=== PATIENT | male | born 1955 | race African-American/Black ===

== ENCOUNTER 2019-07-16 19:42 | Emergency (ER) | payer OTHER, SELFPAY ==
--- NOTE | ~2019-07-16 | CT_ITS ---
EXAMINATION: CT abdomen pelvis wo con EXAM DATE: 07/16/2019 21:05 INDICATION: Hematuria. TECHNIQUE: Spiral CT of the abdomen and pelvis was performed without contrast. Axial, coronal and sag ittal images were reviewed. The dose-length product (DLP) for this examination was 864.41 mGy-cm. T he exposure was tailored according to patient size (auto mA exposure control), and iterative reconstr uction (ASIR) was used as additional dose reduction technique. There is no prior study for compariso n. FINDINGS: There is a punctate 2 mm calcification in the right ureterovesicular junction. No hydroneph rosis at present. There are several stones layering in the dependent aspect of the bladder. Low-densi ty renal lesions consistent with cysts. There are several small more dense lesions which are homogene ous and statistically most likely hemorrhagic cyst but incompletely evaluated without contrast. Ther e is mild prostatomegaly. The bladder is unremarkable. The liver, spleen, adrenal glands and pancre as are unremarkable. Gallbladder is unremarkable. No biliary obstruction. There is no retroperiton eal or pelvic lymphadenopathy. There is mild scattered arteriosclerotic disease. Small umbilical he rnia containing nonobstructed small bowel loop. The appendix is not positively visualized. There is no pericecal inflammatory change to suggest appe ndicitis. The stomach and small bowel are unremarkable. There is moderate amount of colonic stool in the ascending and transverse colon. No free intraperitoneal gas. The heart is normal in size. There are no pericardial or pleural effusions. The lung bases are unremarkable. There are no osteo blastic or osteolytic lesions identified. IMPRESSION: 1. Right UVJ 2 mm stone, without hydroureteronephrosis. Nonobstructing at present. 2. Bladder stones. 3. Prostatomegaly. 4. Small umbilical hernia containing nonobstructed small bowel. 5. Renal lesions consistent with cysts and more dense lesions statistically most likely cyst but not further characterized on this noncontrast study. Reviewed, dictated and finalized at location A. IMPRESSION: 1. Right UVJ 2 mm stone, without hydroureteronephrosis. Nonobstructing at pres ent. 2. Bladder stones. 3. Prostatomegaly. 4. Small umbilical hernia containing nonobstructed small bowel. 5. Renal lesions consistent with cysts and more dense lesions statistically mo st likely cyst but not further characterized on this noncontrast study.
[2019-07-16 19:44] VITALS: BP 155/90; PULSE 92; RESP 16; TEMP 37; O2SAT 100
--- NOTE | 2019-07-16 20:33 | ED.MALEGU ---
HPI - Male Genitourinary General Chief complaint: Urogenital-Male Stated complaint: HEMATURIA Time Seen by Provider: 07/16/19 20:23 Source: patient Mode of arrival: ambulatory Limitations: no limitations History of Present Illness HPI Narrative: A 64 y/o male presents to the ED with c/o hematuria. Pt states that today he went for a mile walk and when he came home he noticed his urine had blood in it and was cloudy and dark. He denies dysuria and back pain. Pt is not currently on blood thinners. He adds that he has been losing weight intentionally Complaint: other (Hematuria) Onset (ago): hour(s) (Today) Duration: constant Associated symptoms: Reports denies other symptoms Related Data Allergies Allergy/AdvReac Type Severity Reaction Status Date / Time No Known Allergies Allergy Unknown Unverified 02/10/19 11:07 No Known Allergies Allergy Uncoded 02/10/19 11:07 Review of Systems Review of Systems: Narrative: CONSTITUTIONAL: Denies fever, chills, or sweats. CARDIOVASCULAR: Denies chest pain, palpitations, or edema. RESPIRATORY: Denies cough or dyspnea. GASTROINTESTINAL: Denies abdominal pain, nausea, vomiting, or diarrhea. GENITOURINARY: Denies dysuria. Reports hematuria. SKIN: Denies rash or itching. MUSCULOSKELETAL: Denies back pain, joint pain, or myalgia. NEUROLOGIC: Denies headache, numbness, or weakness. All systems reviewed & are unremarkable except as noted in HPI and below PMFSH Past Medical History Medical History (Updated 07/16/19 @ 21:54 by Verna Vega MD) Asthma BPH (benign prostatic hyperplasia) Glaucoma HTN (hypertension) Nose fracture Pneumonia Surgical History Surgical History (Updated 07/16/19 @ 20:36 by Geeta Grady) No pertinent past surgical history Social History Social History (Updated 07/16/19 @ 20:36 by Geeta Grady) Smoking status: Never smoker Gender identity (if verbalized by the patient): Male Exam Narrative: Exam Narrative: GENERAL: Well-appearing, well-nourished, and in no acute distress. HEAD: Normocephalic, atraumatic. EYES: PERRLA and EOMI. ENT: Nares clear, no rhinorrhea or epistaxis. Mucous membranes moist. NECK: Supple. CHEST: Clear to auscultation. No respiratory distress. HEART: Regular rate and rhythm. No murmur heard. Normal peripheral pulses. ABDOMEN: Soft, nontender, nondistended, normal active bowel sounds. EXTREMITIES: Normal range of motion. No edema. SKIN: Warm, dry, no rash. NEURO: No focal deficits. Alert and oriented X3. Course Course Emergency Course: Patient presented for evaluation of hematuria. At the time of initial assessment, patient denies any other symptoms, he is having some urinary frequency. Patient without flank pain. Urinalysis shows white blood cells, no evidence of UTI, no leukocyte esterase or nitrites present. White blood cells may be inflammatory in nature as the patient does have a right sided 2 mm UVJ nonobstructing stone currently. This is likely causing the patient's hematuria. Urology also recommended no antibiotics for this patient. He will be given urology follow-up for his stone, given a strainer and advised on how to strain his urine. Patient then discharged home in stable condition. Vital Signs Vital signs: Vital Signs Temperature 37.0 C 07/16/19 19:44 Pulse Rate 92 07/16/19 19:44 Respiratory Rate 16 07/16/19 19:44 Blood Pressure 155/90 H 07/16/19 19:44 Pulse Oximetry 100 07/16/19 19:44 Temperature 37.0 C 07/16/19 19:44 Pulse Rate 92 07/16/19 19:44 Respiratory Rate 16 07/16/19 19:44 Blood Pressure 155/90 H 07/16/19 19:44 Pulse Oximetry 100 07/16/19 19:44 MDM - Male Genitourinary Lab Data Result diagrams: 07/16/19 20:58 07/16/19 20:58 Labs: Lab Results 07/16/19 07/16/19 07/16/19 Range/Units 20:50 20:58 20:58 WBC 4.7 (4.5-10.0) K/mm3 RBC 4.79 (4.6-6.20) M/mm3 Hgb 14.5 (14.0-18.0) g/dL Hct 43.8 (42.0-52.0) %
[2019-07-16 21:04] LABS: Basophils Percent Auto 0.6 % (0.2-1.2); Eosinophils Absolute Auto 0.1 K/mm3 (0-0.3); Eosinophils Percent Auto 2.1 % (0-4.4); Hematocrit 43.8 % (42.0-52.0); Hemoglobin 14.5 g/dL (14.0-18.0); Immature Granulocyte Absolute 0.01 K/mm3 (0.00-0.031); Immature Granulocyte Percent A 0.2 % (0-0.5); Mean Corpuscular HGB Conc 33.1 g/dl (32-36); Mean Corpuscular Hemoglobin 30.3 pg (26-34); Mean Corpuscular Volume 91.4 fl (80-100); Mean Platelet Volume 9.6 fl (7.4-10.4); Monocytes Absolute Auto 0.4 K/mm3 (0.1-0.6); Monocytes Percent Auto 8.9 % (2.6-8.5); Neutrophils Absolute Auto 3.3 K/mm3 (1.3-6.7); Neutrophils Percent Auto 69.2 % (45.5-73.1); Platelet Count Result 244 k/mm3 (150-375); Red Blood Count 4.79 M/mm3 (4.6-6.20); Red Cell Distribution Width 13.7 % (11.5-14.5); White Blood Count 4.7 K/mm3 (4.5-10.0)
[2019-07-16 21:13] LABS: Add Urine Microscopic? YES; Appearance Urine Cloudy (Clear); Bilirubin Urine Negative (Negative); Blood Urine 3+ (Negative); Color Urine Red (Yellow); Glucose Urine UA Negative (Negative); Ketones Urine Trace mg/dL (Negative); Leukocyte Esterase Ur Negative LEU/UL (Negative); Mucus Urine Rare /lpf; Nitrate Urine Negative (Negative); Protein Urine 2+ mg/dL (Negative); RBC Urine >75 /hpf (0-2); Specific Grav Ur 1.021 (1.001-1.035); Urobilinogen Urine Negative mg/dL (<2.0); WBC Urine >75 /hpf
[2019-07-16 21:15] LABS: Blood Urea Nitrogen 11 mg/dL (9-20); Calcium 9.5 mg/dL (8.4-10.2); Carbon Dioxide 28 mmol/L (22-30); Chloride 103 mmol/L (98-107); Creatine Kinase 589 U/L (55-170); Estimated CRCL calculation 73 ml/min; Estimated Glomerular Filt Rate > 60; Glucose 110 mg/dL (75-110); Potassium 3.6 mmol/L (3.4-5.0); Sodium 138 mmol/L (137-145)
[2019-07-16 22:09] VITALS: BP 121/77; PULSE 78; RESP 18; O2SAT 98
== END 2019-07-16 22:11 | disposition home or self-care (01) ==
PROVIDERS: Emergency Medicine; Emergency Provider Emergency Medicine
DX: N20.0 Calculus of kidney (principal); J45.909 Unspecified asthma, uncomplicated; N40.0 Benign prostatic hyperplasia without lower urinary tract symptoms; H40.9 Unspecified glaucoma; I10 Essential (primary) hypertension; N21.0 Calculus in bladder; K42.9 Umbilical hernia without obstruction or gangrene; N28.9 Disorder of kidney and ureter, unspecified
CPT/HCPCS: 36415; 74176; 80048; 81001; 82550; 85025; 87086; 87088; 99284

== ENCOUNTER 2020-05-17 19:13 | Observation (INO) | payer OTHER, SELFPAY ==
--- NOTE | ~2020-05-17 | US_ITS ---
EXAMINATION:US venous doppler LE BI INDICATION:Leg swelling and pain TECHNIQUE: Multiple grayscale, color flow and Doppler images of the right and left lower extremity de ep venous systems were obtained and reviewed. COMPARISON:No prior studies for comparison. FINDINGS: The common femoral, superficial femoral and popliteal veins demonstrate normal respiratory variation, augmentation and compressibility. Color flow is also seen within the posterior tibial, pe roneal, greater saphenous and profunda veins. IMPRESSION: 1: No lower extremity deep venous thrombosis. Reviewed, dictated and finalized at location A. 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
--- NOTE | ~2020-05-17 | CT_ITS ---
EXAMINATION: CTA chest PE protocol EXAM DATE: 05/17/2020 20:46 INDICATION: Chest pain radiating to left arm. TECHNIQUE: Spiral CTA of the chest (pulmonary arteries) was performed with 100 cc Omnipaque 350 intr avenous contrast injection. Images were acquired during the pulmonary arterial phase. Coronal maxi mum intensity projection 3D-reconstructions were created by the technologist on dedicated workstation . Axial, coronal and sagittal reformatted images were reviewed. The dose-length product (DLP) for t his examination was 816.44 mGy-cm. The exposure was tailored according to patient size (auto mA exp osure control), and iterative reconstruction (ASIR) was used as additional dose reduction technique. There is no prior study for comparison. FINDINGS: There are several segmental pulmonary emboli identified in the left upper lobe and the melquiades gula. No larger central pulmonary emboli. No thoracic aortic dissection. Scattered subsegmental ate lectasis. The lungs are otherwise clear. There are no pleural or pericardial effusions. Tracheobr onchial tree is patent. There is no mediastinal, hilar or axillary lymphadenopathy. There is no p neumothorax. Heart normal in size. There is mild coronary arterial calcification, arterial sclero sis. There is small sliding gastroesophageal hiatal hernia. Bilateral renal lesions, most are fluid density. There is an exophytic 1.3 cm right renal lesion, cou ld be proteinaceous cyst or solid based on density. There is thoracic spondylosis without osteoblast ic or osteolytic lesions identified. IMPRESSION: 1. Small exophytic right renal lesion, indeterminate; recommend follow-up ultrasound or MRI with con trast. 2. Lingular, left upper lobe segmental pulmonary emboli, low clot burden. I discussed small pulmonary emboli with Rob Craig DO at 05/17/2020 20:52 [employer] . Reviewed, dictated and finalized at location A. [employer] IMPRESSION: 1. Small exophytic right renal lesion, indeterminate; recommend follow-up ultr asound or MRI with contrast. 2. Lingular, left upper lobe segmental pulmonary emboli, low clot burden. I discussed small pulmonary emboli with Rob Craig DO at 05/17/2020 20:52 [employer] .
--- NOTE | ~2020-05-17 | XR_ITS ---
EXAMINATION: XR chest 2V EXAM DATE: 05/17/2020 19:40 INDICATION: Left lateral chest pain, history hypertension and asthma. TECHNIQUE: Frontal and lateral projections of the chest obtained and reviewed. There is no prior august[place] dy for comparison. FINDINGS: Linear bibasilar opacities most consistent with subsegmental atelectasis. The lungs are oth erwise clear. There are no pleural effusions. The cardiomediastinal silhouette is within normal carrasco its. There is no pneumothorax suspected. The bones and soft tissues are unremarkable. IMPRESSION: Intracranial bibasilar opacities most likely atelectasis. Reviewed, dictated and finalized at location A. 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
--- NOTE | 2020-05-17 19:17 | ECG_ITS ---
Measurements Intervals [place] Rate: 110 P: 60 NH: 207 QRS: 4 QRSD: 83 T: 64 QT: 309 QTc: 418 Interpretive Statements SINUS TACHYCARDIA POSSIBLE LEFT ATRIAL ENLARGEMENT ABNORMAL ECG Electronically Signed On 05-18-2020 7:20:41 [employer] by Chalino Watts D.O.
--- NOTE | 2020-05-17 19:25 | ED.CHESTPAIN ---
HPI - Chest Pain General Chief Complaint: Chest Pain Stated Complaint: chest pain Time Seen by Provider: 05/17/20 19:21 Source: RN notes reviewed History of Present Illness HPI narrative: Patient presents to emergency department from home for chest pain. Patient states pain began approximately 330 today the pain is located left side of the chest and described as aching states nothing seems to make the pain better or worse he denies any fevers or chills shortness of breath cough abdominal pain nausea vomiting diarrhea or any other symptoms. Denies any previous cardiac history Related Data Allergies Allergy/AdvReac Type Severity Reaction Status Date / Time No Known Allergies Allergy Unknown Unverified 02/10/19 11:07 No Known Allergies Allergy Uncoded 02/10/19 11:07 Review of Systems Review of Systems: Narrative: Gen.: Denies fevers or chills ENT: Denies congestion Respiratory: Denies shortness of breath or cough CV: See HPI GI: Denies abdominal pain nausea, emesis or diarrhea Musculoskeletal: Denies back pain or muscle pain Neuro: Denies numbness, tingling, weakness or focal weakness Skin: Denies rash Except as documented, all other systems reviewed and negative [facility] Past Medical History Medical History Asthma BPH (benign prostatic hyperplasia) Glaucoma HTN (hypertension) Nose fracture Pneumonia Surgical History Surgical History (Updated 07/16/19 @ 20:36 by Geeta Grady) No pertinent past surgical history Social History Social History Smoking status: Never smoker Gender identity (if verbalized by the patient): Male Exam Narrative: Exam Narrative: APPEARANCE: No acute distress, nontoxic, resting in bed EYES: EOMI HEENT: Normocephalic, atraumatic, OMM RESPIRATORY: No respiratory distress Clear to auscultation bilaterally with no rhonchi wheezing or rales. CARDIOVASCULAR: Regular rate and rhythm without murmurs rubs or gallops. ABDOMINAL: Soft, nontender, nondistended, no rebound or guarding MUSCULOSKELETAl: Moves all extremities. No clubbing, cyanosis or edema. NEURO: Awake and alert. Following commands, speech normal, no focal deficits SKIN:: Warm, dry. No rashes lesions or abrasions PSYCHIATRIC: Normal affect/mood, Course Course Emergency Course: Discussed with patient states his mother at age 48 of pulmonary embolism he has never had a blood clot before. Denies any recent travel Discussed with Dr. Sauceda presentation work-up agrees with admission at this time agrees with plan for Lovenox Discussed with patient and family results of workup and diagnosis. Discussed need for admission. Patient and family understand and agree to current treatment plan Vital Signs Vital signs: Vital Signs Temperature 98.6 F 05/17/20 19:29 Pulse Rate 108 H 05/17/20 19:29 Respiratory Rate 18 05/17/20 19:29 Blood Pressure 179/159 H 05/17/20 19:29 Pulse Oximetry 95 05/17/20 19:29 Temperature 98.6 F 05/17/20 19:29 Pulse Rate 108 H 05/17/20 19:29 Respiratory Rate 18 05/17/20 19:29 Blood Pressure 179/159 H 05/17/20 19:29 Pulse Oximetry 95 05/17/20 19:29 MDM - Chest Pain Lab Data Result diagrams: 05/17/20 19:42 05/17/20 19:42 Labs: Lab Results 05/17/20 05/17/20 05/17/20 Range/Units 19:42 19:42 19:42 WBC 8.5 (4.5-10.0) K/mm3 RBC 5.11 (4.6-6.20) M/mm3 Hgb 16.0 (14.0-18.0) g/dL Hct 47.2 (42.0-52.0) % MCV 92.4 (80-100) fl MCH 31.3 (26-34) pg MCHC 33.9 (32-36) g/dl RDW 13.5 (11.5-14.5) % Plt Count 205 (150-375) k/mm3 MPV 9.5 (7.4-10.4) fl Immature Gran % (Auto) 0.5 (0-0.5) % Neut % (Auto) 78.4 H (45.5-73.1) % Lymph % (Auto) 12.0 L (18.3-44.2) % Mclennan % (Auto) 7.8 (2.6-8.5) % Eos % (Auto) 1.1 (0-4.4) % Baso % (Auto) 0.2 (0.2-1.2) % Lymph # (Auto) 1.02 (
[2020-05-17 19:29] VITALS: BP 179/159; PULSE 108; RESP 18; TEMP 37; O2SAT 95
--- NOTE | 2020-05-17 19:30 | PC.NURSE ---
Patient states he had 4 81mg chewable aspirin today at Urgent Care. Per ER MD, no more aspirin is needed.
[2020-05-17 19:48] LABS: Basophils Percent Auto 0.2 % (0.2-1.2); Eosinophils Absolute Auto 0.1 K/mm3 (0-0.3); Eosinophils Percent Auto 1.1 % (0-4.4); Hematocrit 47.2 % (42.0-52.0); Immature Granulocyte Absolute 0.04 K/mm3 (0.00-0.031); Immature Granulocyte Percent A 0.5 % (0-0.5); Lymphocytes Absolute Auto 1.02 K/mm3 (0.9-3.2); Mean Corpuscular HGB Conc 33.9 g/dl (32-36); Mean Corpuscular Hemoglobin 31.3 pg (26-34); Mean Corpuscular Volume 92.4 fl (80-100); Mean Platelet Volume 9.5 fl (7.4-10.4); Monocytes Absolute Auto 0.7 K/mm3 (0.1-0.6); Monocytes Percent Auto 7.8 % (2.6-8.5); Neutrophils Absolute Auto 6.7 K/mm3 (1.3-6.7); Neutrophils Percent Auto 78.4 % (45.5-73.1); Platelet Count Result 205 k/mm3 (150-375); Red Blood Count 5.11 M/mm3 (4.6-6.20); Red Cell Distribution Width 13.5 % (11.5-14.5); White Blood Count 8.5 K/mm3 (4.5-10.0)
[2020-05-17 19:57] LABS: Prothrombin Time 13.4 Seconds (11.1-14.7)
[2020-05-17 19:58] LABS: Anion Gap 6 mmol/L (8-16); Blood Urea Nitrogen 15 mg/dL (9-20); Calcium 9.7 mg/dL (8.4-10.2); Carbon Dioxide 31 mmol/L (22-30); Chloride 100 mmol/L (98-107); Estimated CRCL calculation 74 ml/min; Estimated Glomerular Filt Rate > 60; Glucose 169 mg/dL (75-110); Partial Thromboplastin Time 27.9 SECONDS (22.3-36.8); Potassium 3.6 mmol/L (3.4-5.0); Sodium 137 mmol/L (137-145)
[2020-05-17 20:00] LABS: D Dimer 1.58 ug/mL (<0.48)
[2020-05-17 20:10] LABS: Troponin I < 0.012 ng/mL (0.000-0.034)
[2020-05-17] MEDS: SODIUM CHLORIDE 0.9% IV 1,000 ML 999 ML IV CONT (20:22)
[2020-05-17] MEDS: ENOXAPARIN 100 MG/ML SYRINGE SUB-Q (21:43)
--- NOTE | 2020-05-17 22:42 | PM.IMHP ---
H&P: HPI History of Present Illness Date/Time: 05/17/20 22:42 Chief Complaint: left sided chest pain Narrative: This is a pleasant 64 year old male with known HTN, Glaucoma, and adult onset asthma who presented to the hospital for evaluation of left sided chest pain that started around 3:30 today. His pain is worse with deep breathing. Associated symptoms include shortness of breath. He denies any fevers, cough, hemoptysis, abdominal pain, nausea, vomiting, dysuria, hematuria, diarrhea or rectal bleeding. The patient was evaluated in the ER tonight and found to have a Lingular, left upper lobe segmental pulmonary emboli, low clot burden. He has no previous history of blood clotting disorders and denies any recent surgeries or travel. He also denies taking any hormone therapy. The patient's family history is significant for his mother dying at age 44 of massive bilateral pulmonary emboli. On my encounter with the patient his chest pain is resolved and he is comfortable on room air. He has been anticoagulted with [place] Lovenox. He has no other complaints at this time. Review of Systems Review of Systems: All systems reviewed & are unremarkable except as noted in HPI and below PMFSH Past Medical History Medical History (Updated 05/17/20 @ 22:52 by Sergey Sauceda MD) Asthma BPH (benign prostatic hyperplasia) Glaucoma HTN (hypertension) Nose fracture Pneumonia Surgical History Surgical History No pertinent past surgical history Family History Family History (Updated 05/17/20 @ 22:48 by Sergey Sauceda MD) Mother Pulmonary embolism Social History Social History Smoking status: Never smoker Alcohol intake: current Drinks per week: 6 Substance use: never Gender identity (if verbalized by the patient): Male Spiritual care concerns: No Meds Home Medications and Allergies Home Medications Medication Instructions Recorded Confirmed Type Breo Ellipta 1 inh INHALATION DAILY 05/18/20 05/18/20 History amlodipine 10 mg PO DAILY 05/18/20 05/18/20 History apixaban [Eliquis] 5 mg PO BID #70 tablet 05/18/20 Rx atorvastatin 40 mg PO DAILY 05/18/20 05/18/20 History cholecalciferol (vitamin D3) 1,000 unit PO DAILY 05/18/20 05/18/20 History [Vitamin D3] hydrochlorothiazide 12.5 mg PO DAILY 05/18/20 05/18/20 History latanoprost 1 drp OPHTHALMIC (EYE) HS 05/18/20 05/18/20 History tadalafil 5 mg PO DAILY 05/18/20 05/18/20 History Allergies Allergy/AdvReac Type Severity Reaction Status Date / Time No Known Allergies Allergy Unknown Unverified 02/10/19 11:07 No Known Allergies Allergy Uncoded 02/10/19 11:07 Vital Signs Vital Signs - 24 hr 05/17/20 19:29 Temperature 37.0 C Pulse Rate 108 H Respiratory Rate 18 Blood Pressure 179/159 H Pulse Oximetry 95 Exam Const: General: cooperative, healthy appearing, no acute distress, alert and awake Nutritional Appearance: well nourished Orientation/consciousness: patient oriented x3 HENMT: Head: normal to inspection General nose exam: Normal external nose present Face and sinus: normal facial exam Mouth: Yes Normal oral and palatal mucosa present and Yes oropharynx normal Eyes: Pupils: Equal, round and reactive pupils present EOM: EOMs intact bilaterally Neck: Neck: supple and no JVD Thyroid: thyroid normal Lymphatic: lymphadenopathy not noted Chest: Other: No chest wall tenderness w/ palpation Resp: Effort & Inspection: normal respiratory effort Auscultation: clear to auscultation bilaterally Cardio: Rate: tachycardic Rhythm: regular rhythm Heart sounds: no murmurs GI: Inspection: normal to inspection Auscultation: normal bowel sounds Skin: General skin exam: normal color and no rashes or lesions noted Neuro: General: patient oriented x3 Cranial nerves: Yes CN's II-XII intact bilaterally and Yes Equal, round and r
[2020-05-17 23:21] VITALS: BP 157/93; PULSE 88; RESP 19; O2SAT 94
--- NOTE | 2020-05-17 23:38 | ADMGEN ---
This patient, Mina Mcguire, was admitted to Medical Room 348-01. Patient/family oriented to hospital policies and general routines including ID bracelet, bed and alarms, visiting hours, pain management, procedures, bathroom and other care routines, personal items, smoking policy, room service/diet, and visiting hours. Information on how to activate the Rapid Response Team has been discussed. Patient/Family are encouraged to report perceived risks to care and to ask questions if they do not understand what they are told or what they should do.
[2020-05-17 23:50] VITALS: BMI 31.0
[2020-05-18] VITALS (7 sets, daily range): BP systolic 135–139; BP diastolic 79–88; PULSE 69–93; RESP 20; TEMP 36.2–36.9; O2SAT 92–98
[2020-05-18 02:02] LABS: Troponin I < 0.012 ng/mL (0.000-0.034)
[2020-05-18 06:12] LABS: Basophils Percent Auto 0.5 % (0.2-1.2); Eosinophils Absolute Auto 0.1 K/mm3 (0-0.3); Eosinophils Percent Auto 2.2 % (0-4.4); Hematocrit 40.1 % (42.0-52.0); Hemoglobin 13.4 g/dL (14.0-18.0); Immature Granulocyte Absolute 0.03 K/mm3 (0.00-0.031); Immature Granulocyte Percent A 0.5 % (0-0.5); Lymphocytes Absolute Auto 1.42 K/mm3 (0.9-3.2); Lymphocytes Percent Auto 24.4 % (18.3-44.2); Mean Corpuscular HGB Conc 33.4 g/dl (32-36); Mean Corpuscular Hemoglobin 31.2 pg (26-34); Mean Corpuscular Volume 93.3 fl (80-100); Mean Platelet Volume 9.7 fl (7.4-10.4); Monocytes Absolute Auto 0.8 K/mm3 (0.1-0.6); Monocytes Percent Auto 13.9 % (2.6-8.5); Neutrophils Absolute Auto 3.4 K/mm3 (1.3-6.7); Neutrophils Percent Auto 58.5 % (45.5-73.1); Platelet Count Result 172 k/mm3 (150-375); Red Cell Distribution Width 13.5 % (11.5-14.5); White Blood Count 5.8 K/mm3 (4.5-10.0)
[2020-05-18 06:35] LABS: Anion Gap 1 mmol/L (8-16); Blood Urea Nitrogen 11 mg/dL (9-20); Calcium 8.6 mg/dL (8.4-10.2); Carbon Dioxide 31 mmol/L (22-30); Chloride 106 mmol/L (98-107); Estimated CRCL calculation 91 ml/min; Estimated Glomerular Filt Rate > 60; Glucose 98 mg/dL (75-110); Potassium 3.3 mmol/L (3.4-5.0); Sodium 138 mmol/L (137-145)
[2020-05-18 07:03] LABS: Hemoglobin A1C 5.3 % (<5.7)
[2020-05-18] MEDS: amLODIPine BESYLATE 5 MG TABLET 10 MG PO (09:02)
[2020-05-18] MEDS: hydroCHLOROthiazide 12.5 MG CAPSULE PO (09:03)
[2020-05-18] MEDS: ATORVASTATIN 40 MG TABLET PO (09:03)
[2020-05-18] MEDS: POTASSIUM CHLORIDE 20 MEQ TABLET 40 MEQ PO (09:03)
[2020-05-18] MEDS: ENOXAPARIN 100 MG/ML SYRINGE SUB-Q (09:51)
[2020-05-18] MEDS: CHOLECALCIFEROL 1,000 UNITS TABLET 1000 UNITS PO (09:51)
--- NOTE | 2020-05-18 09:59 | PC.NURSE ---
Patient to ultrasound via hospital stretcher.
--- NOTE | 2020-05-18 10:31 | PC.NURSE ---
Patient returned from ultrasound via hospital stretcher.
--- NOTE | 2020-05-18 12:41 | PM.DS ---
DS: Admitting Diagnosis Admitting Diagnosis Admitting Diagnosis: PE DS: Discharge Diagnosis Discharge Diagnosis (1) Pulmonary embolism: Qualifiers: Acute cor pulmonale presence: unspecified Chronicity: acute Pulmonary embolism type: unspecified Qualified Code(s): I26.99 - Other pulmonary embolism without acute cor pulmonale Code(s): I26.99 - Other pulmonary embolism without acute cor pulmonale Status: Acute (2) HTN (hypertension): Qualifiers: Hypertension type: unspecified Qualified Code(s): I10 - Essential (primary) hypertension Code(s): I10 - Essential (primary) hypertension Status: Chronic (3) Glaucoma: Qualifiers: Glaucoma type: unspecified Laterality: unspecified laterality Qualified Code(s): H40.9 - Unspecified glaucoma Code(s): H40.9 - Unspecified glaucoma Status: Chronic (4) Asthma: Qualifiers: Asthma severity: unspecified severity Asthma persistence: unspecified Asthma complication type: unspecified Qualified Code(s): J45.909 - Unspecified asthma, uncomplicated Code(s): J45.909 - Unspecified asthma, uncomplicated Status: Chronic DS: Summary Hospital Course Hospital Course: Patient is a 64-year-old male who recently transitioned to a new role in his job and has been more sedentary who presented emergency room for left-sided chest pain that he described as stabbing in nature. He states he does not have any shortness of breath but has noticed when he goes up multiple flights of stairs at work or walks across the campus to get food he feels out of breath more quickly. He usually works out and is more active but he got a new job and he has been more sedentary. Interestingly enough, his mom of pulmonary emboli when she was 44 but no other family members have any issues with clotting. He had a CTA of his chest in the ER which showed pulmonary emboli in the left lung with low clot burden. Patient's labs are reassuring and his troponin is negative x2 but are spaced out between 1942 and 1:00 a.m. EKG reviewed which showed sinus tachycardia likely due to PE. No cardiomegaly noted on CTA. On exam he had no crackles or lower extremity edema. The patient felt great and ready to go home. Patient appears stable and has not required any oxygen at this time. He has no additional chest pain. Because of the low clot burden, physical exam, negative troponins, and EKG I do not suspect heart failure at this time. He was educated to come back if he starts having dyspnea on exertion, further chest pain, or worsening shortness of breath. He is going to transition to Eliquis which was priced and he can afford. Of mention, he had a small exophytic right renal lesion that they recommended an MRI but the patient states he had a renal ultrasound 3 years ago and is primary care follows him for this routinely. There is some mention of this also on the CT of his abdomen back in July as well. Overall, the patient was ready for discharge. He was educated about the worrisome signs and symptoms to come back to emergency room for and was discharged in stable condition. Status at Discharge Functional status at discharge: independent ambulation Overall status at discharge: patient is back to baseline Time Spent with Patient Time attestation: Total time spent providing and/or coordinating discharge services:36min Time spent: Greater than 30 minutes Exam Narrative: Exam Narrative: General: Well developed well nourished patient in NAD HEENT: normocephalic Neck: supple Neuro: Alert and oriented x4 CV:RRR, no palpable chest pain. Telemetry revealed no abnormal rhythm. He is currently at 80 beats per minute Resp:CTA Abd: Soft, non distended. No pain to palpation. Positive bowel sounds Extremities: No swelling, erythema, or pain to palpation. DS: Data Data Completed and Pending Labs on day of discharge: Labs from last 24 hours 05/18/20
== END 2020-05-18 13:20 ==
LOC: ANHED 21:43 → ANH3MED 05-18 07:44
PROVIDERS: Emergency Medicine; Admitting Provider Family Medicine; Emergency Provider Emergency Medicine; Visit Provider Physician Assistant
DX: I26.99 Other pulmonary embolism without acute cor pulmonale (principal); R73.09 Other abnormal glucose; R07.9 Chest pain, unspecified; I10 Essential (primary) hypertension; J45.909 Unspecified asthma, uncomplicated; N40.0 Benign prostatic hyperplasia without lower urinary tract symptoms; H40.9 Unspecified glaucoma; M79.89 Other specified soft tissue disorders; M79.606 Pain in leg, unspecified
CPT/HCPCS: 36415; 71046; 71275; 80048; 83036; 84484; 85025; 85380; 85610; 85730; 93005; 93970; 96361; 96372; 96374; 99285; A9270; G0378; J0131; J1650; J7030; Q9967

== ENCOUNTER 2021-07-31 12:21 | Emergency (ER) | payer OTHER, SELFPAY ==
[2021-07-31 12:31] VITALS: BP 101/75; PULSE 121; RESP 16; TEMP 38.5; O2SAT 95
--- NOTE | 2021-07-31 12:53 | ED.FEVER ---
HPI - Fever General Chief Complaint: Fever Stated Complaint: Chills Time Seen by Provider: 07/31/21 12:54 Mode of arrival: ambulatory Limitations: no limitations History of Present Illness HPI Narrative: 66-year-old male presents with concern for fever and chills. Reports he began having chills last night, he did not measure his temperature at the time. Reports on Wednesday he had a prostate biopsy where they took 12 samples. Reports the biopsy was done through the rectum. He denies any abdominal pain, hematuria, bloody stools. Reports normal appetite and normal bowel movements. He denies body aches, cough, shortness of breath, nasal congestion, rhinorrhea, sore throat, headache. Reports fatigue, fever, chills. He denies any testicular or anal redness, swelling, tenderness MD elicited complaint: fever Related Data Home Medications Medication Instructions Recorded Confirmed Breo Ellipta 1 inh INHALATION DAILY 05/18/20 07/31/21 amlodipine 10 mg PO DAILY 05/18/20 07/31/21 atorvastatin 40 mg PO DAILY 05/18/20 07/31/21 cholecalciferol (vitamin D3) 1,000 unit PO DAILY 05/18/20 07/31/21 [Vitamin D3] hydrochlorothiazide 12.5 mg PO DAILY 05/18/20 07/31/21 latanoprost 1 drp OPHTHALMIC (EYE) HS 05/18/20 07/31/21 tadalafil 5 mg PO DAILY 05/18/20 07/31/21 Allergies Allergy/AdvReac Type Severity Reaction Status Date / Time No Known Allergies Allergy Unknown Unverified 07/31/21 12:33 Review of Systems Review of Systems: CONSTITUTIONAL: Denies malaise. Reports fatigue, chills, fever. ENT: Denies rhinorrhea, congestion, sinus pain, otalgia or sore throat. CARDIOVASCULAR: Denies chest pain, palpitations, or edema. RESPIRATORY: Denies cough or dyspnea. GASTROINTESTINAL: Denies abdominal pain, nausea, vomiting, diarrhea, bloody, or mucous stools. GENITOURINARY: Denies dysuria or hematuria. SKIN: Denies redness, swelling, tenderness MUSCULOSKELETAL: Denies myalgia. All systems reviewed & are unremarkable except as noted in HPI and below PMFSH Past Medical History Medical History (Updated 07/31/21 @ 13:21 by Teresita Chang NP) Asthma BPH (benign prostatic hyperplasia) Glaucoma HTN (hypertension) Nose fracture Pneumonia Surgical History Surgical History (Updated 07/31/21 @ 13:21 by Teresita Chang NP) No pertinent past surgical history Family History Family History (Updated 05/17/20 @ 22:48 by Sergey Sauceda, ) Mother Pulmonary embolism Social History Social History Smoking status: Never smoker Alcohol intake: current Drinks per week: 6 Substance use: never Gender identity (if verbalized by the patient): Male Spiritual care concerns: No Comments At time of signature, agree with nursing past medical, surgical, social and family history. There is no relevant family history pertinent to the presenting complaint Exam Narrative: GENERAL: Well-appearing, well-nourished, and in no acute distress. HEAD: Normocephalic, atraumatic. EYES: PERRLA, sclera clear, and EOMI. No nystagmus. ENT: Nares clear, turbinates pink, no rhinorrhea or epistaxis. Mucous membranes moist. TM pearly north with sharp light reflex bilaterally; no tragal tenderness. Oropharynx without erythema or lesions. Tonsils not enlarged and without exudate. NECK: Supple. No lymphadenopathy. No jugular venous distension, thyromegaly, or carotid bruits. Carotids were easily palpable bilaterally. CHEST: No respiratory distress. Clear to auscultation. No bony deformities, no asymmetry. Speaks in full sentences. HEART: Regular rate and rhythm. No murmur heard. Normal peripheral pulses. ABDOMEN: Soft, nontender, nondistended, normal active bowel sounds, no palpable masses. EXTREMITIES: Normal range of motion. No edema. Normal strength and sensation. SKIN: Warm, dry, no visible rash. NEURO: Alert and oriented x3. No focal deficits. Cranial nerves II through XII grossly intact PSYCH: Normal mood
== END 2021-07-31 13:32 | disposition short-term general hospital (02) ==
PROVIDERS: Emergency Provider Nurse Practitioner
DX: R50.9 Fever, unspecified (principal); J45.909 Unspecified asthma, uncomplicated; N40.0 Benign prostatic hyperplasia without lower urinary tract symptoms; H40.9 Unspecified glaucoma; I10 Essential (primary) hypertension
CPT/HCPCS: 87804; 99213; G0463

== ENCOUNTER 2021-07-31 13:49 | Inpatient (IN) | payer OTHER, SELFPAY ==
[2021-07-31] VITALS (8 sets, daily range): BP systolic 122–147; BP diastolic 81–83; PULSE 86–103; RESP 16–20; TEMP 36.6–38.2; O2SAT 96–97
[2021-07-31 14:36] LABS: Basophils Percent Auto 0.2 % (0.2-1.2); Eosinophils Percent Auto 0.1 % (0-4.4); Hemoglobin 14.6 g/dL (14.0-18.0); Immature Granulocyte Absolute 0.04 K/mm3 (0.00-0.031); Immature Granulocyte Percent A 0.4 % (0-0.5); Lymphocytes Absolute Auto 0.45 K/mm3 (0.9-3.2); Mean Corpuscular HGB Conc 33.2 g/dl (32-36); Mean Corpuscular Hemoglobin 31.5 pg (26-34); Mean Corpuscular Volume 94.8 fl (80-100); Mean Platelet Volume 9.6 fl (7.4-10.4); Monocytes Absolute Auto 0.9 K/mm3 (0.1-0.6); Monocytes Percent Auto 7.6 % (2.6-8.5); Neutrophils Percent Auto 87.7 % (45.5-73.1); Platelet Count Result 199 k/mm3 (150-375); Red Blood Count 4.64 M/mm3 (4.6-6.20); Red Cell Distribution Width 13.4 % (11.5-14.5); White Blood Count 11.4 K/mm3 (4.5-10.0)
[2021-07-31 14:37] LABS: Add Urine Microscopic? YES; Appearance Urine Cloudy (Clear); Bacteria Urine Trace /hpf; Bilirubin Urine Negative (Negative); Blood Urine 1+ (Negative); Color Urine Yellow (Yellow); Glucose Urine UA Negative (Negative); Ketones Urine Negative (Negative); Leukocyte Esterase Ur 1+ LEU/UL (Negative); Mucus Urine Few /lpf; Nitrate Urine Positive (Negative); Protein Urine Negative (Negative); Specific Grav Ur 1.019 (1.001-1.035); Squamous Epithelial Cell Urine Rare /hpf (Few); Urobilinogen Urine Negative mg/dL (<2.0); WBC Urine 31-50 /hpf
[2021-07-31 14:41] LABS: Lactic Acid Reflex 1.1 mmol/L (0.7-2.1)
[2021-07-31 14:43] LABS: Alanine Aminotransferase 19 U/L (4-50); Albumin Level 4.1 g/dL (3.5-5.1); Alkaline Phosphatase 64 U/L (38-126); Anion Gap 3 mmol/L (8-16); Aspartate Amino Transferase 33 U/L (17-59); Bilirubin,Total 1.5 mg/dL (0.2-1.3); Blood Urea Nitrogen 11 mg/dL (9-20); Carbon Dioxide 30 mmol/L (22-30); Chloride 103 mmol/L (98-107); Estimated CRCL calculation 75 ml/min; Estimated Glomerular Filt Rate > 60; Glucose 123 mg/dL (65-110); Potassium 3.4 mmol/L (3.4-5.0); Sodium 136 mmol/L (137-145)
--- NOTE | 2021-07-31 15:55 | ED.GENADULT ---
HPI - General Adult General Chief complaint: Urogenital-Male Stated complaint: fever, post prostate biopsy Time Seen by Provider: 07/31/21 14:07 Source: patient and family Mode of arrival: ambulatory Limitations: no limitations History of Present Illness HPI narrative: 66-year-old with a history of hypertension, hyperlipidemia here with complaints of fever and chills since this morning. Patient states that he had a prostate biopsy done by Dr. Easley 2 days ago developed fever this morning. He denies any nausea, vomiting or shortness of breath or abdominal pain. Denies any urinary symptoms. Patient states that he went to urgent care and was later referred to the ER by his urologist. Onset (ago): day(s) (1) Exacerbating factors: none Associated symptoms: fever/chills Treatments prior to arrival: none Related Data Home Medications Medication Instructions Recorded Confirmed Breo Ellipta 1 inh INHALATION DAILY 05/18/20 07/31/21 amlodipine 10 mg PO DAILY 05/18/20 07/31/21 atorvastatin 40 mg PO DAILY 05/18/20 07/31/21 cholecalciferol (vitamin D3) 1,000 unit PO DAILY 05/18/20 07/31/21 [Vitamin D3] hydrochlorothiazide 12.5 mg PO DAILY 05/18/20 07/31/21 latanoprost 1 drp OPHTHALMIC (EYE) HS 05/18/20 07/31/21 tadalafil 5 mg PO DAILY 05/18/20 07/31/21 Allergies Allergy/AdvReac Type Severity Reaction Status Date / Time No Known Allergies Allergy Unknown Unverified 07/31/21 12:33 Review of Systems Review of Systems: All systems reviewed & are unremarkable except as noted in HPI and below Constitutional: Constitutional: Reports no additional constitutional complaints Eyes: Eyes: Reports no additional eye complaints ENT: Reports system reviewed and no additional complaints, except as documented Cardiovascular: Cardiovascular: Reports no additional cardiovascular complaints Respiratory: Respiratory: Reports no additional respiratory complaints Gastrointestinal: Gastrointestinal: Reports no additional gastrointestinal complaints Genitourinary: Genitourinary: Reports as per HPI Musculoskeletal: Musculoskeletal: Reports no additional musculoskeletal complaints Integumentary/Breasts: Skin/Breast: Reports system reviewed and no additional complaints, except as docu Neurologic: Reports system reviewed and no additional complaints, except as documented [facility] Past Medical History Medical History Asthma BPH (benign prostatic hyperplasia) Glaucoma HTN (hypertension) Nose fracture Pneumonia Surgical History Surgical History No pertinent past surgical history Family History Family History Mother Pulmonary embolism Social History Social History Smoking status: Never smoker Alcohol intake: current Drinks per week: 6 Substance use: never Gender identity (if verbalized by the patient): Male Spiritual care concerns: No Exam Narrative: GENERAL: Well-appearing, well-nourished, and in no acute distress. HEAD: Normocephalic, atraumatic. EYES: PERRLA and EOMI. NECK: Supple. CHEST: Clear to auscultation. No respiratory distress. HEART: Regular rate and rhythm. No murmur heard. Normal peripheral pulses. ABDOMEN: Soft, nontender, nondistended, normal active bowel sounds. EXTREMITIES: Normal range of motion. No edema. SKIN: Warm, dry, no rash. NEURO: No focal deficits. Alert and oriented x3. PSYCH: Normal mood and affect. Course Course Emergency Course: Inform patient about his lab work. Discussed with Dr. Rizzo recommended admission for IV antibiotic. Discussed with hospitalist as well as with Dr. Holly. Patient agreed for admission. Vital Signs Vital signs: Vital Signs Temperature 36.9 C 07/31/21 14:01 Pulse Rate 103 H 07/31/21 14:01 Respiratory Rate 17 07/31/21 14:01 Blood Pre
--- NOTE | 2021-07-31 17:00 | PM.IMHP ---
H&P: HPI History of Present Illness Date/Time: Patient was placed observation status for expected length of stay less than 23 hours for management, will plan to re-evaluate tomorrow for improvement. 07/31/21 17:00 Chief Complaint: Fever Narrative: Mr. Mcguire is a 66-year-old gentleman who presented emergency room for complaints of fever and chills. Patient states on Wednesday of this week he had a prostate biopsy for a mildly elevated PSA. Patient states Wednesday he began having chills, but did not check his temperature. Patient states he was at work today and he started having chills again and he was shivering so badly that he could not work on his computer and has had a good an urgent care. Patient states at that time his temperature was 101? F and he was told to come to the emergency room for further evaluation by his urologist. Upon evaluation in emergency room but was noted the patient had a urinary tract infection and patient's urologist was notified and it was thought the patient would benefit most from hospitalization and IV antibiotics. Patient denies any CVA tenderness, nausea, or vomiting. Patient denies any dysuria, hematuria, frequency, or urgency. Patient states that he had no other symptoms except for a fever. Patient has a known history of pulmonary embolism for which he takes Eliquis, hypertension, dyslipidemia and asthma. Review of Systems Review of Systems: A 12 point review of systems was completed patient all pertinent positive and negative per HPI the remainder are unremarkable. [facility] Past Medical History Medical History Asthma BPH (benign prostatic hyperplasia) Glaucoma HTN (hypertension) Nose fracture Pneumonia Surgical History Surgical History No pertinent past surgical history Family History Family History Mother Pulmonary embolism Social History Social History Smoking status: Never smoker Alcohol intake: current Drinks per week: 6 Substance use: never Gender identity (if verbalized by the patient): Male Spiritual care concerns: No Meds Home Medications and Allergies Home Medications Medication Instructions Recorded Confirmed Type Breo Ellipta 1 inh INHALATION DAILY 05/18/20 07/31/21 History amlodipine 10 mg PO DAILY 05/18/20 07/31/21 History atorvastatin 40 mg PO DAILY 05/18/20 07/31/21 History cholecalciferol (vitamin D3) 1,000 unit PO DAILY 05/18/20 07/31/21 History [Vitamin D3] hydrochlorothiazide 12.5 mg PO DAILY 05/18/20 07/31/21 History latanoprost 1 drp OPHTHALMIC (EYE) HS 05/18/20 07/31/21 History tadalafil 5 mg PO DAILY 05/18/20 07/31/21 History Allergies Allergy/AdvReac Type Severity Reaction Status Date / Time No Known Allergies Allergy Unknown Unverified 07/31/21 12:33 Vital Signs Vital Signs - 24 hr 07/31/21 14:01 Temperature 36.9 C Pulse Rate 103 H Respiratory Rate 17 Blood Pressure 129/82 Pulse Oximetry 97 Exam Narrative: Constitutional: Patient is well-nourished in no acute distress. Patient is alert and oriented x3 HEENT: Moist mucous membranes. No scleral icterus. No lymphadenopathy. Neck: No carotid bruits noted no JVD noted Lungs: Lung sounds are clear to auscultation bilaterally. No accessory muscle use. No rhonchi, rales, or wheezes noted. Cardiovascular: Apical pulse is regular rate and rhythm. S1-S2 noted, no S3 or S4 noted. No gallops, murmurs, or rubs noted. Abdomen: Soft, round, and nontender. No palpable masses. Extremities: No edema. Nontender. Skin: No rashes or lesions. Warm and dry. Skin is intact. Neurological: No focal neurological deficits. Cranial nerves II-XII grossly intact. Psychiatric: Cooperative, appropriate mood, and affect H&P: Results Labs Labs: Short CBC 07/31/21 Ran
--- NOTE | 2021-07-31 17:42 | ADMGEN ---
This patient, Mina Mcguire, was admitted to Medical Room 261-01. Patient/family oriented to hospital policies and general routines including ID bracelet, bed and alarms, visiting hours, pain management, procedures, bathroom and other care routines, personal items, smoking policy, room service/diet, and visiting hours. Information on how to activate the Rapid Response Team has been discussed. Patient/Family are encouraged to report perceived risks to care and to ask questions if they do not understand what they are told or what they should do.
--- NOTE | 2021-07-31 17:51 | WPDURCON ---
Assessment and Plan Assessment and plan (1) Fever: Qualifiers: Fever type: unspecified Qualified Code(s): R50.9 - Fever, unspecified Code(s): R50.9 - Fever, unspecified Status: Acute (2) Acute UTI: Code(s): N39.0 - Urinary tract infection, site not specified Status: Acute Assessment and Plan: Febrile urinary tract infection following a transrectal ultrasound and biopsy prostate. Given the fact that he was treated preoperatively with ciprofloxacin and gentamicin, I think ceftriaxone is a an appropriate option pending cultures. Urology Consult Note HPI Date Seen: 07/31/21 Requesting Physician: Thompson Cary MD Primary Care Provider: PHYSICIAN NOT ON STAFF Consult Narrative Narrative: Mina Mcguire is a 66 yo who presents to the emergency department with a febrile urinary tract infection 48 hours following a transrectal ultrasound-guided biopsy of his prostate. Patient has a persistently slightly elevated PSA and underwent a traditional 12 core prostate biopsy partner Dr. Easley on 07/29/2021. He was treated with oral ciprofloxacin and IM gentamicin just prior to the procedure. Earlier today he developed shaking chills and fever. In the [place] [address]2000 and a slight leukocytosis. He denies significant hematuria or obstructive voiding symptoms. His biopsy results are not yet available. Review of Systems Cardiovascular: Cardiovascular: Denies chest pain, Denies lightheadedness, Denies palpitations and Denies dyspnea Respiratory: Respiratory: Denies dyspnea Gastrointestinal: Gastrointestinal: Denies diarrhea, Denies nausea and Denies vomiting Genitourinary: Genitourinary: Denies hematuria and Denies dysuria Endocrine: Endocrine: Denies palpitations PMFSH Past Medical History Medical History Asthma BPH (benign prostatic hyperplasia) Glaucoma HTN (hypertension) Nose fracture Pneumonia Surgical History Surgical History No pertinent past surgical history Family History Family History Mother Pulmonary embolism Social History Social History Smoking status: Never smoker Alcohol intake: current Drinks per week: 6 Substance use: never Gender identity (if verbalized by the patient): Male Spiritual care concerns: No Meds Home Medications and Allergies Home Medications Medication Instructions Recorded Confirmed Type Breo Ellipta 1 inh INHALATION DAILY 05/18/20 07/31/21 History amlodipine 10 mg PO DAILY 05/18/20 07/31/21 History atorvastatin 40 mg PO DAILY 05/18/20 07/31/21 History cholecalciferol (vitamin D3) 1,000 unit PO DAILY 05/18/20 07/31/21 History [Vitamin D3] hydrochlorothiazide 12.5 mg PO DAILY 05/18/20 07/31/21 History latanoprost 1 drp OPHTHALMIC (EYE) HS 05/18/20 07/31/21 History tadalafil 5 mg PO DAILY 05/18/20 07/31/21 History Allergies Allergy/AdvReac Type Severity Reaction Status Date / Time No Known Allergies Allergy Unknown Unverified 07/31/21 12:33 Vital Signs Vital Signs - 24 hr 07/31/21 14:01 07/31/21 17:24 Temperature 98.4 F Pulse Rate 103 H 86 Respiratory Rate 17 16 Blood Pressure 129/82 122/81 Pulse Oximetry 97 96 Results Labs CBC & Chem 7: 07/31/21 14:24 07/31/21 14:24 Labs: Short CBC 07/31/21 Range/Units 14:24 WBC 11.4 H (4.5-10.0) K/mm3 Hgb 14.6 (14.0-18.0) g/dL Hct 44.0 (42.0-52.0) % Plt Count 199 (150-375) k/mm3 BMP 07/31/21 14:24 Sodium 136 L Potassium 3.4 Chloride 103 Carbon Dioxide 30 BUN 11 Creatinine 1.10 Glucose 123 H Calcium 10.0 Liver Function 07/31/21 Range/Units 14:24 Total Bilirubin 1.5 H (0.2-1.3) mg/dL AST 33 (17-59) U/L ALT
[2021-07-31] MEDS: SODIUM CHLORIDE 0.9% IV 1,000 ML 125 ML IV CONT (17:57)
[2021-07-31] MEDS: ACETAMINOPHEN 325 MG TABLET 650 MG PO (21:15)
[2021-07-31] MEDS: LATANOPROST 0.005% OP SOLN 2.5 ML BTL 1 DROP EACH EYE (21:18)
[2021-08-01] VITALS (13 sets, daily range): BP systolic 96–137; BP diastolic 54–76; PULSE 65–107; RESP 14–20; TEMP 36.2–36.6; O2SAT 94–100
[2021-08-01] MEDS: SODIUM CHLORIDE 0.9% IV 1,000 ML 125 ML IV CONT ×3 (03:45→20:41)
[2021-08-01 06:03] LABS: Basophils Percent Auto 0.2 % (0.2-1.2); Eosinophils Percent Auto 0.1 % (0-4.4); Hematocrit 38.2 % (42.0-52.0); Hemoglobin 12.4 g/dL (14.0-18.0); Immature Granulocyte Absolute 0.09 K/mm3 (0.00-0.031); Immature Granulocyte Percent A 0.6 % (0-0.5); Lymphocytes Absolute Auto 0.72 K/mm3 (0.9-3.2); Lymphocytes Percent Auto 5.1 % (18.3-44.2); Mean Corpuscular HGB Conc 32.5 g/dl (32-36); Mean Corpuscular Hemoglobin 31.6 pg (26-34); Mean Corpuscular Volume 97.2 fl (80-100); Mean Platelet Volume 9.9 fl (7.4-10.4); Monocytes Absolute Auto 0.8 K/mm3 (0.1-0.6); Monocytes Percent Auto 5.8 % (2.6-8.5); Neutrophils Absolute Auto 12.6 K/mm3 (1.3-6.7); Neutrophils Percent Auto 88.2 % (45.5-73.1); Platelet Count Result 162 k/mm3 (150-375); Red Blood Count 3.93 M/mm3 (4.6-6.20); Red Cell Distribution Width 13.7 % (11.5-14.5); White Blood Count 14.2 K/mm3 (4.5-10.0)
[2021-08-01 06:08] LABS: Anion Gap 3 mmol/L (8-16); Blood Urea Nitrogen 15 mg/dL (9-20); Calcium 8.7 mg/dL (8.4-10.2); Carbon Dioxide 30 mmol/L (22-30); Chloride 105 mmol/L (98-107); Estimated CRCL calculation 60 ml/min; Estimated Glomerular Filt Rate > 60; Glucose 129 mg/dL (65-110); Potassium 3.9 mmol/L (3.4-5.0); Sodium 138 mmol/L (137-145)
--- NOTE | 2021-08-01 06:59 | WPDUROPN2 ---
Progress Note: A&P Assessment and Plan (1) Fever postop: Code(s): R50.82 - Postprocedural fever Status: Acute (2) Acute UTI: Code(s): N39.0 - Urinary tract infection, site not specified Status: Acute Assessment and Plan: Febrile UTI following prostate biopsy. Ceftriaxone pending blood and urine cultures. He received Cipro and Gentamycin prior to the procedure. Voiding well - retention not an issue. Subjective Subjective Date/Time Seen: 08/01/21 06:59 Comfortable, voiding well Review of Systems Cardiovascular: Cardiovascular: Denies chest pain, Denies lightheadedness, Denies palpitations and Denies dyspnea Respiratory: Respiratory: Denies dyspnea Gastrointestinal: Gastrointestinal: Denies diarrhea, Denies nausea and Denies vomiting Genitourinary: Genitourinary: Denies hematuria and Denies dysuria Endocrine: Endocrine: Denies palpitations Exam Const: General: no acute distress Resp: Effort & Inspection: normal respiratory effort GI: Inspection: non-distended GI Palp: No abdominal tenderness and No Guarding due to palpation present (GI) Auscultation: normal bowel sounds Objective Data Vital Signs Vital Signs: Vital Signs - 24 hr 07/31/21 14:01 07/31/21 17:24 07/31/21 18:01 Temperature 98.4 F 97.8 F Pulse Rate 103 H 86 Respiratory Rate 17 16 Blood Pressure 129/82 122/81 Pulse Oximetry 97 96 07/31/21 18:30 07/31/21 20:00 07/31/21 21:11 Temperature 100.3 F H 100.7 F H 100.7 F H Pulse Rate 103 H 97 97 Respiratory Rate 20 20 20 Blood Pressure 139/81 147/83 H 147/83 H Pulse Oximetry 97 97 97 07/31/21 21:15 07/31/21 22:15 08/01/21 00:00 Temperature 100.7 F H 98.9 F 97.1 F L Pulse Rate 107 H Respiratory Rate 20 Blood Pressure 107/61 Pulse Oximetry 98 08/01/21 04:00 Temperature 97.2 F L Pulse Rate 73 Respiratory Rate 20 Blood Pressure 96/62 L Pulse Oximetry 100 Intake/Output Intake/Output: Intake & Output 07/29/21 07/30/21 07/31/21 08/01/21 23:59 23:59 23:59 23:59 Intake Total 50 1500 Output Total 400 Balance 50 1100 Meds/Results Medications: Active Medications Generic Name Dose Route Start Last Admin Trade Name Freq PRN Reason Stop Dose Admin Acetaminophen 650 mg 07/31/21 16:04 07/31/21 21:15 Acetaminophen 325 Mg Tablet PO 650 mg Q4H PRN Administration Mild Pain (1-3) or Fever Amlodipine Besylate 10 mg 08/01/21 09:00 Amlodipine Besylate 5 Mg Tablet PO DAILY [facility] Atorvastatin Calcium 40 mg 08/01/21 09:00 Atorvastatin 40 Mg Tablet PO DAILY [facility] Hydrochlorothiazide 12.5 mg 08/01/21 09:00 Hydrochlorothiazide 12.5 Mg Capsule PO DAILY [facility] Sodium Chloride 1,000 mls @ 125 mls/hr 07/31/21 16:05 08/01/21 03:45 Normal Saline Iv IV CONT 125 mls/hr .Q8H SYDNEE Administration Ceftriaxone Sodium/Dextrose 1 gm in 50 mls @ 100 mls/hr 08/01/21 15:00 Rocephin 1 Gm/D5w 50 Ml IVPB Q24H [facility] Latanoprost 1 drop 07/31/21 21:00 07/31/21 21:18 Latanoprost 0.005% Op Soln 2.5 Ml Btl EACH EYE 1 drop HS SYDNEE Administration Morphine Sulfate 4 mg 07/31/21 16:04 Morphine Sulfate (*Crx) 4 Mg/Ml Inj IV PUSH Q2H PRN Pain Rated 7-10 Ondansetron HCl 4 mg 07/31/21 16:04 Ondansetron Inj 4 Mg/2 Ml Vial IV PUSH Q4H PRN Nausea Fluticasone/Salmeterol 2 puff 08/01/21 08:00 Fluticasone/Salmeterol 115-21 Mcg Inhaler 1 Puff INHALATION Q12HRT [facility] Vitamin D 1,000 units 08/01/21 09:00 Cholecalciferol 1,000 Units Tablet PO DAILY [facility] Labs Labs: Laboratory Results - last 24 hr 07/31/21 07/31/21 07/31/21 14:24 14:24 14:24 WBC 11.4 H RBC 4.64 Hgb 14.6 Hct 44.0 MCV 94.8 MCH 31.5 MCHC 33.2 RDW 13.4 Plt Count 199 MPV 9.6 Immature Gran % (Auto) 0.4 Neut % (Auto) 87.7 H Lymph % (Auto) 4.0 L [place] % (Auto) 7.6 Eos % (Auto) 0.1 Baso % (Auto) 0.2 Lymph # (Auto)
[2021-08-01] MEDS: FLUTICASONE/SALMETEROL 115-21 MCG INHALER 1 PUFF 2 PUFF INHALATION (07:42)
--- NOTE | 2021-08-01 07:42 | PCRCNOTE ---
Rt tried to instruct Pt. on inhaler and patient refused the treatment and stated they did not need this medication.
[2021-08-01] MEDS: CHOLECALCIFEROL 1,000 UNITS TABLET 1000 UNITS PO (09:32)
--- NOTE | 2021-08-01 10:30 | P.PNIM_ITS ---
Progress Note: A&P Assessment and Plan (1) Sepsis: Code(s): A41.9 - Sepsis, unspecified organism Status: Acute Assessment and Plan: * Sepsis criteria met with leukocytosis, fever, tachycardia, and FATEMEH * Lactic acid 1.1 * Source is urinary tract infection * Blood culture positive with gram negative bacilli * Urine culture pending * WBC elevated at 14.2 today and trending up * Cipro on board * Continue to trend labs * await culture results (2) Bacteremia: Code(s): R78.81 - Bacteremia Status: Acute Assessment and Plan: * Blood cultures positives with gram negative bacilli * Continue with IV ceftriaxone * trend labs * Could possibly need to be on moth exterminator antibiotics * Trend WBCs (3) Acute UTI: Code(s): N39.0 - Urinary tract infection, site not specified Status: Acute Assessment and Plan: * UA shows cloudy urine with 1+ blood, positive nitrates, 1+ leukocyte esterase, 31-50 WBC, trace bacteria, few mucus * Patient received Rocephin in the emergency room. * Continue Rocephin until sensitives come back * await culture and sensitivities * urologist has been consult and appreciate further recommendations (4) HTN (hypertension): Qualifiers: Hypertension type: unspecified Qualified Code(s): I10 - Essential (primary) hypertension Code(s): I10 - Essential (primary) hypertension Status: Chronic Assessment and Plan: * Current BP 96/62 * Resume home amlodipine 10mg PO daily, HTCZ 12.5mg PO daily * Trend BP * Adjust therapy as indicated (5) Pulmonary embolism: Qualifiers: Acute cor pulmonale presence: unspecified Chronicity: acute Pulmonary embolism type: unspecified Qualified Code(s): I26.99 - Other pulmonary embolism without acute cor pulmonale Code(s): I26.99 - Other pulmonary embolism without acute cor pulmonale Status: Acute Assessment and Plan: * Patient states that he was on Eliquis at home for his pulmonary embolism * Reports having some hematuria after starting Eliquis, which provoked him to see a urologist * Resume Eliquis (6) FATEMEH (acute kidney injury): Code(s): N17.9 - Acute kidney failure, unspecified Status: Acute Assessment and Plan: * BUN/Cr elevated from baseline at 15/1.40 * IV fluids on board, continue for now * trend labs * Avoid nephrotoxic medications * Continue to trend Time Spent With Patient Time with patient: Greater than 35 minutes Subjective Date/time seen: 08/01/21 10:30 Interval history: 07/31/21 17:00 Narrative: Mr. Mcguire is a 66-year-old gentleman who presented emergency room for complaints of fever and chills. Patient states on Wednesday of this week he had a prostate biopsy for a mildly elevated PSA. Patient states Wednesday he began having chills, but did not check his temperature. Patient states he was at work today and he started having chills again and he was shivering so badly that he could not work on his computer and has had a good an urgent care. Patient states at that time his temperature was 101? F and he was told to come to the emergency room for further evaluation by his urologist. Upon evaluation in emergency room but was noted the patient had a urinary tract infection and patient's urologist was notified and it was thought the patient would benefit most from hospitalization and IV antibiotics. Patient denies any CVA tend
--- NOTE | 2021-08-01 10:30 | PM.IMPN ---
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 Continue Rocephin until sensitives come back await culture and sensitivities urologist has been consult and appreciate further recommendations (4) HTN (hypertension): Qualifiers: Hypertension type: unspecified Qualified Code(s): I10 - Essential (primary) hypertension Code(s): I10 - Essential (primary) hypertension Status: Chronic Assessment and Plan: Current BP 96/62 Resume home amlodipine 10mg PO daily, HTCZ 12.5mg PO daily Trend BP Adjust therapy as indicated (5) Pulmonary embolism: Qualifiers: Acute cor pulmonale presence: unspecified Chronicity: acute Pulmonary embolism type: unspecified Qualified Code(s): I26.99 - Other pulmonary embolism without acute cor pulmonale Code(s): I26.99 - Other pulmonary embolism without acute cor pulmonale Status: Acute Assessment and Plan: Patient states that he was on Eliquis at home for his pulmonary embolism Reports having some hematuria after starting Eliquis, which provoked him to see a urologist Resume Eliquis (6) FATEMEH (acute kidney injury): Code(s): N17.9 - Acute kidney failure, unspecified Status: Acute Assessment and Plan: BUN/Cr elevated from baseline at 15/1.40 IV fluids on board, continue for now trend labs Avoid nephrotoxic medications Continue to trend Time Spent With Patient Time with patient: Greater than 35 minutes Subjective Date/time seen: 08/01/21 10:30 Interval history: 07/31/21 17:00 Narrative: Mr. Mcguire is a 66-year-old gentleman who presented emergency room for complaints of fever and chills. Patient states on Wednesday of this week he had a prostate biopsy for a mildly elevated PSA. Patient states Wednesday he began having chills, but did not check his temperature. Patient states he was at work today and he started having chills again and he was shivering so badly that he could not work on his computer and has had a good an urgent care. Patient states at that time his temperature was 101? F and he was told to come to the emergency room for further evaluation by his urologist. Upon evaluation in emergency room but was noted the patient had a urinary tract infection and patient's urologist was notified and it was thought the patient would benefit most from hospitalization and IV antibiotics. Patient denies any CVA tenderness, nausea, or vomiting. Patient denies any dysuria, hematuria, frequency, or urgency. Patient states that he had no other symptoms except for a fever. Patient has a known history of pulmonary embolism for which he takes Eliquis, hypertension, dyslipidemia and asthma. 08/01/21 1030 Patient stated that he is feeling the best he has felt ever since he got his biopsy. He denies any chest pain, shortness of breath, nausea, diarrhea, constipation or weakness. I did ask the patient about his P
--- NOTE | 2021-08-01 14:05 | PC.NURSE ---
On 08/01/21, the student, [August Schmid & Jessica Burkett], provided care and completed [facility] documentation on this patient. I have reviewed the student's documentation and agree with the findings.
[2021-08-01] MEDS: ATORVASTATIN 40 MG TABLET PO (20:41)
[2021-08-01] MEDS: LATANOPROST 0.005% OP SOLN 2.5 ML BTL 1 DROP EACH EYE (20:42)
[2021-08-02] VITALS (8 sets, daily range): BP systolic 111–136; BP diastolic 67–77; PULSE 72–90; RESP 17–20; TEMP 36.2–36.6; O2SAT 92–98
[2021-08-02 05:33] LABS: Basophils Percent Auto 0.5 % (0.2-1.2); Eosinophils Absolute Auto 0.1 K/mm3 (0-0.3); Eosinophils Percent Auto 1.4 % (0-4.4); Hematocrit 38.8 % (42.0-52.0); Hemoglobin 12.5 g/dL (14.0-18.0); Immature Granulocyte Absolute 0.02 K/mm3 (0.00-0.031); Immature Granulocyte Percent A 0.3 % (0-0.5); Immature Platelet Fraction Pct 4.1 % (0.9-11.2); Lymphocytes Absolute Auto 0.81 K/mm3 (0.9-3.2); Lymphocytes Percent Auto 12.6 % (18.3-44.2); Mean Corpuscular HGB Conc 32.2 g/dl (32-36); Mean Corpuscular Hemoglobin 31.1 pg (26-34); Mean Corpuscular Volume 96.5 fl (80-100); Monocytes Absolute Auto 0.8 K/mm3 (0.1-0.6); Monocytes Percent Auto 11.9 % (2.6-8.5); Neutrophils Absolute Auto 4.7 K/mm3 (1.3-6.7); Neutrophils Percent Auto 73.3 % (45.5-73.1); Platelet Count Result 153 k/mm3 (150-375); Red Blood Count 4.02 M/mm3 (4.6-6.20); Red Cell Distribution Width 13.5 % (11.5-14.5); White Blood Count 6.4 K/mm3 (4.5-10.0)
[2021-08-02 05:44] LABS: Alanine Aminotransferase 20 U/L (4-50); Albumin Level 3.1 g/dL (3.5-5.1); Alkaline Phosphatase 55 U/L (38-126); Anion Gap 2 mmol/L (8-16); Aspartate Amino Transferase 36 U/L (17-59); Bilirubin,Total 0.8 mg/dL (0.2-1.3); Blood Urea Nitrogen 12 mg/dL (9-20); Calcium 8.2 mg/dL (8.4-10.2); Carbon Dioxide 27 mmol/L (22-30); Chloride 109 mmol/L (98-107); Estimated CRCL calculation 82 ml/min; Estimated Glomerular Filt Rate > 60; Glucose 95 mg/dL (65-110); Potassium 3.2 mmol/L (3.4-5.0); Sodium 138 mmol/L (137-145)
[2021-08-02] MEDS: SODIUM CHLORIDE 0.9% IV 1,000 ML 125 ML IV CONT (05:58)
[2021-08-02] MEDS: POTASSIUM CHLORIDE 20 MEQ TABLET 40 MEQ PO (07:59)
[2021-08-02] MEDS: amLODIPine BESYLATE 5 MG TABLET 10 MG PO (08:11)
[2021-08-02] MEDS: hydroCHLOROthiazide 12.5 MG CAPSULE PO (08:11)
[2021-08-02] MEDS: CHOLECALCIFEROL 1,000 UNITS TABLET 1000 UNITS PO (08:11)
--- NOTE | 2021-08-02 10:45 | P.PNIM_ITS ---
Progress Note: A&P Assessment and Plan (1) Sepsis: Code(s): A41.9 - Sepsis, unspecified organism Status: Acute Assessment and Plan: * Sepsis criteria met with leukocytosis, fever, tachycardia, and FATEMEH * Lactic acid 1.1 * Source is urinary tract infection * Blood culture positive with gram negative bacilli * Urine culture positive, gram negative bacilli * WBC elevated at 6.4 today better * Continue ceftriaxone * Continue to trend labs * await culture results (2) Bacteremia: Code(s): R78.81 - Bacteremia Status: Acute Assessment and Plan: * Blood cultures positives with gram negative bacilli * Continue with IV ceftriaxone * Source seems to be from the urine * trend labs * Could possibly need to be on retirement antibiotics * Trend WBCs (3) Acute UTI: Code(s): N39.0 - Urinary tract infection, site not specified Status: Acute Assessment and Plan: * UA shows cloudy urine with 1+ blood, positive nitrates, 1+ leukocyte esterase, 31-50 WBC, trace bacteria, few mucus * Patient received Rocephin in the emergency room. * Continue Rocephin until sensitives come back * await culture and sensitivities * urologist has been consult and appreciate further recommendations (4) HTN (hypertension): Qualifiers: Hypertension type: unspecified Qualified Code(s): I10 - Essential (primary) hypertension Code(s): I10 - Essential (primary) hypertension Status: Chronic Assessment and Plan: * Current BP 130/69 * Resume home amlodipine 10mg PO daily, HTCZ 12.5mg PO daily * Trend BP * Adjust therapy as indicated (5) Pulmonary embolism: Qualifiers: Acute cor pulmonale presence: unspecified Chronicity: acute Pulmonary embolism type: unspecified Qualified Code(s): I26.99 - Other pulmonary embolism without acute cor pulmonale Code(s): I26.99 - Other pulmonary embolism without acute cor pulmonale Status: Acute Assessment and Plan: * Patient states that he was on Eliquis at home for his pulmonary embolism * Reports having some hematuria after starting Eliquis, which provoked him to see a urologist * No currently on anticoagulation * Independent in the room (6) FATEMEH (acute kidney injury): Code(s): N17.9 - Acute kidney failure, unspecified Status: Acute Assessment and Plan: * BUN/Cr elevated from baseline * Back to baseline at 00 * IV fluids on board, can DC at this point * trend labs * Avoid nephrotoxic medications * Continue to trend (7) Hypokalemia: Code(s): E87.6 - Hypokalemia Status: Acute Assessment and Plan: * K is 3.2 * Replace with 40mcg PO * Trend labs * Labs in the am Time Spent With Patient Time with patient: Greater than 35 minutes Subjective Date/time seen: 08/02/21 10:45 Interval history: 07/31/21 17:00 Narrative: Mr. Mcguire is a 66-year-old gentleman who presented emergency room for complaints of fever and chills. Patient states on Wednesday of this week he had a prostate biopsy for a mildly elevated PSA. Patient states Wednesday he began having chills, but did not check his temperature. Patient states he was at work today and he started having chills again and he was shivering so badly t hat he could not work on his computer and has had a good an urgent care. Patient states at that [facility]
--- NOTE | 2021-08-02 10:45 | PM.IMPN ---
Progress Note: A&P Assessment and Plan (1) Sepsis: Code(s): A41.9 - Sepsis, unspecified organism Status: Acute Assessment and Plan: Sepsis criteria met with leukocytosis, fever, tachycardia, and FATEMEH Lactic acid 1.1 Source is urinary tract infection Blood culture positive with gram negative bacilli Urine culture positive, gram negative bacilli WBC elevated at 6.4 today better Continue ceftriaxone Continue to trend labs await culture results (2) Bacteremia: Code(s): R78.81 - Bacteremia Status: Acute Assessment and Plan: Blood cultures positives with gram negative bacilli Continue with IV ceftriaxone Source seems to be from the urine trend labs Could possibly need to be on [facility] antibiotics Trend WBCs (3) Acute UTI: Code(s): N39.0 - Urinary tract infection, site not specified Status: Acute Assessment and Plan: UA shows cloudy urine with 1+ blood, positive nitrates, 1+ leukocyte esterase, 31-50 WBC, trace bacteria, few mucus Patient received Rocephin in the emergency room. Continue Rocephin until sensitives come back await culture and sensitivities urologist has been consult and appreciate further recommendations (4) HTN (hypertension): Qualifiers: Hypertension type: unspecified Qualified Code(s): I10 - Essential (primary) hypertension Code(s): I10 - Essential (primary) hypertension Status: Chronic Assessment and Plan: Current BP 130/69 Resume home amlodipine 10mg PO daily, HTCZ 12.5mg PO daily Trend BP Adjust therapy as indicated (5) Pulmonary embolism: Qualifiers: Acute cor pulmonale presence: unspecified Chronicity: acute Pulmonary embolism type: unspecified Qualified Code(s): I26.99 - Other pulmonary embolism without acute cor pulmonale Code(s): I26.99 - Other pulmonary embolism without acute cor pulmonale Status: Acute Assessment and Plan: Patient states that he was on Eliquis at home for his pulmonary embolism Reports having some hematuria after starting Eliquis, which provoked him to see a urologist No currently on anticoagulation Independent in the room (6) FATEMEH (acute kidney injury): Code(s): N17.9 - Acute kidney failure, unspecified Status: Acute Assessment and Plan: BUN/Cr elevated from baseline Back to baseline at 12/1.00 IV fluids on board, can DC at this point trend labs Avoid nephrotoxic medications Continue to trend (7) Hypokalemia: Code(s): E87.6 - Hypokalemia Status: Acute Assessment and Plan: K is 3.2 Replace with 40mcg PO Trend labs Labs in the am Time Spent With Patient Time with patient: Greater than 35 minutes Subjective Date/time seen: 08/02/21 10:45 Interval history: 07/31/21 17:00 Narrative: Mr. Mcguire is a 66-year-old gentleman who presented emergency room for complaints of fever and chills. Patient states on Wednesday of this week he had a prostate biopsy for a mildly elevated PSA. Patient states Wednesday he began having chills, but did not check his temperature. Patient states he was at work today and he started having chills again and he was shivering so badly that he could not work on his computer and has had a good an urgent care. Patient states at that time his temperature was 101? F and he was told to come to the emergency room for further evaluation by his urologist. Upon evaluation in emergency room but was noted the patient had a urinary tract infection and patient's urologist was notified and it was thought the patient would benefit most from hospitalization and IV antibiotics. Patient denies any CVA tenderness, nausea, or vomiting. Patient denies any dysuria, hematuria, frequency, or urgency. Patient states that he had no other symptoms except for a fever. Patient has a known history of pulmona
[2021-08-02] MEDS: ATORVASTATIN 40 MG TABLET PO (20:38)
[2021-08-02] MEDS: LATANOPROST 0.005% OP SOLN 2.5 ML BTL 1 DROP EACH EYE (20:38)
--- NOTE | 2021-08-02 20:49 | PCRCNOTE ---
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
[2021-08-03] VITALS (10 sets, daily range): BP systolic 112–149; BP diastolic 65–84; PULSE 60–80; RESP 16–21; TEMP 36.1–36.7; O2SAT 96–100
[2021-08-03 06:00] LABS: Basophils Percent Auto 0.6 % (0.2-1.2); Eosinophils Absolute Auto 0.1 K/mm3 (0-0.3); Hematocrit 38.7 % (42.0-52.0); Hemoglobin 12.7 g/dL (14.0-18.0); Immature Granulocyte Absolute 0.02 K/mm3 (0.00-0.031); Immature Granulocyte Percent A 0.4 % (0-0.5); Lymphocytes Absolute Auto 0.97 K/mm3 (0.9-3.2); Lymphocytes Percent Auto 20.5 % (18.3-44.2); Mean Corpuscular HGB Conc 32.8 g/dl (32-36); Mean Corpuscular Hemoglobin 31.1 pg (26-34); Mean Corpuscular Volume 94.9 fl (80-100); Mean Platelet Volume 9.8 fl (7.4-10.4); Monocytes Absolute Auto 0.8 K/mm3 (0.1-0.6); Monocytes Percent Auto 16.3 % (2.6-8.5); Neutrophils Absolute Auto 2.8 K/mm3 (1.3-6.7); Neutrophils Percent Auto 59.2 % (45.5-73.1); Platelet Count Result 159 k/mm3 (150-375); Red Blood Count 4.08 M/mm3 (4.6-6.20); Red Cell Distribution Width 13.4 % (11.5-14.5); White Blood Count 4.7 K/mm3 (4.5-10.0)
[2021-08-03 06:20] LABS: Alanine Aminotransferase 25 U/L (4-50); Albumin Level 3.2 g/dL (3.5-5.1); Alkaline Phosphatase 54 U/L (38-126); Anion Gap 2 mmol/L (8-16); Aspartate Amino Transferase 43 U/L (17-59); Bilirubin,Total 0.7 mg/dL (0.2-1.3); Blood Urea Nitrogen 7 mg/dL (9-20); Calcium 8.7 mg/dL (8.4-10.2); Carbon Dioxide 30 mmol/L (22-30); Chloride 106 mmol/L (98-107); Estimated CRCL calculation 91 ml/min; Estimated Glomerular Filt Rate > 60; Glucose 99 mg/dL (65-110); Magnesium 2.1 mg/dL (1.6-2.3); Potassium 3.3 mmol/L (3.4-5.0); Sodium 138 mmol/L (137-145)
--- NOTE | 2021-08-03 08:43 | PCRCNOTE ---
Pt states he has mild asthma that only bothers him when he is having allergy issues. States he rarely uses his inhaler at home. Will see about getting BID inhaler discontinued.
[2021-08-03] MEDS: POTASSIUM CHLORIDE 20 MEQ TABLET 40 MEQ PO (09:15)
[2021-08-03] MEDS: amLODIPine BESYLATE 5 MG TABLET 10 MG PO (09:16)
[2021-08-03] MEDS: hydroCHLOROthiazide 12.5 MG CAPSULE PO (09:17)
[2021-08-03] MEDS: CHOLECALCIFEROL 1,000 UNITS TABLET 1000 UNITS PO (09:17)
--- NOTE | 2021-08-03 09:45 | PM.IMPN ---
Progress Note: A&P Assessment and Plan (1) Sepsis: Code(s): A41.9 - Sepsis, unspecified organism Status: Acute Assessment and Plan: Sepsis criteria met with leukocytosis, fever, tachycardia, and FATEMEH Lactic acid 1.1 Source is urinary tract infection Blood culture positive with gram negative bacilli Urine culture positive, gram negative bacilli WBC elevated at 4.7 today better Continue ceftriaxone Continue to trend labs Will need 2 weeks of IV therapy (2) Bacteremia: Code(s): R78.81 - Bacteremia Status: Acute Assessment and Plan: Blood cultures positives with gram negative bacilli Continue with IV ceftriaxone Source seems to be from the urine trend labs Could possibly need to be on senior care antibiotics Trend WBCs repeat blood cultures ordered Will need a midline/PICC time for IV antibiotic administration (3) Acute UTI: Code(s): N39.0 - Urinary tract infection, site not specified Status: Acute Assessment and Plan: UA shows cloudy urine with 1+ blood, positive nitrates, 1+ leukocyte esterase, 31-50 WBC, trace bacteria, few mucus Patient received Rocephin in the emergency room. Continue Rocephin until sensitives come back await culture and sensitivities urologist has been consult and appreciate further recommendations (4) HTN (hypertension): Qualifiers: Hypertension type: unspecified Qualified Code(s): I10 - Essential (primary) hypertension Code(s): I10 - Essential (primary) hypertension Status: Chronic Assessment and Plan: Current BP 128/65 Resume home amlodipine 10mg PO daily, HTCZ 12.5mg PO daily Trend BP Adjust therapy as indicated (5) Pulmonary embolism: Qualifiers: Acute cor pulmonale presence: unspecified Chronicity: acute Pulmonary embolism type: unspecified Qualified Code(s): I26.99 - Other pulmonary embolism without acute cor pulmonale Code(s): I26.99 - Other pulmonary embolism without acute cor pulmonale Status: Acute Assessment and Plan: Patient states that he was on Eliquis at home for his pulmonary embolism Reports having some hematuria after starting Eliquis, which provoked him to see a urologist No currently on anticoagulation Independent in the room (6) FATEMEH (acute kidney injury): Code(s): N17.9 - Acute kidney failure, unspecified Status: Acute Assessment and Plan: BUN/Cr elevated from baseline Back to baseline at 7/0.9 IV fluids on board, can DC at this point trend labs Avoid nephrotoxic medications Continue to trend (7) Hypokalemia: Code(s): E87.6 - Hypokalemia Status: Acute Assessment and Plan: K is 3.3 Replace with 40mcg PO, repeated Trend labs Labs in the am Time Spent With Patient Time with patient: Greater than 35 minutes Subjective Date/time seen: 08/03/21 09:45 Interval history: 07/31/21 17:00 Narrative: Mr. Mcguire is a 66-year-old gentleman who presented emergency room for complaints of fever and chills. Patient states on Wednesday of this week he had a prostate biopsy for a mildly elevated PSA. Patient states Wednesday he began having chills, but did not check his temperature. Patient states he was at work today and he started having chills again and he was shivering so badly that he could not work on his computer and has had a good an urgent care. Patient states at that time his temperature was 101? F and he was told to come to the emergency room for further evaluation by his urologist. Upon evaluation in emergency room but was noted the patient had a urinary tract infection and patient's urologist was notified and it was thought the patient would benefit most from hospitalization and IV antibiotics. Patient denies any CVA tenderness, nausea, or vomiting. Patient denies any dysuria, hematuria, frequency, or urge
--- NOTE | 2021-08-03 09:45 | P.PNIM_ITS ---
Progress Note: A&P Assessment and Plan (1) Sepsis: Code(s): A41.9 - Sepsis, unspecified organism Status: Acute Assessment and Plan: * Sepsis criteria met with leukocytosis, fever, tachycardia, and FATEMEH * Lactic acid 1.1 * Source is urinary tract infection * Blood culture positive with gram negative bacilli * Urine culture positive, gram negative bacilli * WBC elevated at 4.7 today better * Continue ceftriaxone * Continue to trend labs * Will need 2 weeks of IV therapy (2) Bacteremia: Code(s): R78.81 - Bacteremia Status: Acute Assessment and Plan: * Blood cultures positives with gram negative bacilli * Continue with IV ceftriaxone * Source seems to be from the urine * trend labs * Could possibly need to be on nursing home antibiotics * Trend WBCs * repeat blood cultures ordered * Will need a midline/PICC time for IV antibiotic administration (3) Acute UTI: Code(s): N39.0 - Urinary tract infection, site not specified Status: Acute Assessment and Plan: * UA shows cloudy urine with 1+ blood, positive nitrates, 1+ leukocyte esterase, 31-50 WBC, trace bacteria, few mucus * Patient received Rocephin in the emergency room. * Continue Rocephin until sensitives come back * await culture and sensitivities * urologist has been consult and appreciate further recommendations (4) HTN (hypertension): Qualifiers: Hypertension type: unspecified Qualified Code(s): I10 - Essential (p rimary) hypertension Code(s): I10 - Essential (primary) hypertension Status: Chronic Assessment and Plan: * Current BP 128/65 * Resume home amlodipine 10mg PO daily, HTCZ 12.5mg PO daily * Trend BP * Adjust therapy as indicated (5) Pulmonary embolism: Qualifiers: Acute cor pulmonale presence: unspecified Chronicity: acute Pulmonary embolism type: unspecified Qualified Code(s): I26.99 - Other pulmonary embolism without acute cor pulmonale Code(s): I26.99 - Other pulmonary embolism without acute cor pulmonale Status: Acute Assessment and Plan: * Patient states that he was on Eliquis at home for his pulmonary embolism * Reports having some hematuria after starting Eliquis, which provoked him to see a urologist * No currently on anticoagulation * Independent in the room (6) FATEMEH (acute kidney injury): Code(s): N17.9 - Acute kidney failure, unspecified Status: Acute Assessment and Plan: * BUN/Cr elevated from baseline * Back to baseline at 7/0.9 * IV fluids on board, can DC at this point * trend labs * Avoid nephrotoxic medications * Continue to trend (7) Hypokalemia: Code(s): E87.6 - Hypokalemia Status: Acute Assessment and Plan: * K is 3.3 * Replace with 40mcg PO, repeated * Trend labs * Labs in the am Time Spent With Patient Time with patient: Greater than 35 minutes Subjective Date/time seen: 08/03/21 09:45 Interval history: 07/31/21 17:00 Narrative: Mr. Mcguire is a 66-year-old gentleman who presented emergency room for complaints of fever and chills. Patient states on Wednesday of this week he had a prostate biopsy for a mildly elevated PSA. Patient states Wednesday he began having chills, but did not check his temperature. Patient states he was at work today and he started having chills again and he was s
[2021-08-03] MEDS: LATANOPROST 0.005% OP SOLN 2.5 ML BTL 1 DROP EACH EYE (20:35)
[2021-08-03] MEDS: ATORVASTATIN 40 MG TABLET PO (20:35)
[2021-08-04] VITALS: BP 110/68; PULSE 62; RESP 20; TEMP 36.1; O2SAT 98
[2021-08-04 04:00] VITALS: BP 146/83; PULSE 57; RESP 20; TEMP 36.7; O2SAT 98
[2021-08-04 06:12] LABS: Basophils Percent Auto 0.6 % (0.2-1.2); Eosinophils Absolute Auto 0.2 K/mm3 (0-0.3); Eosinophils Percent Auto 4.2 % (0-4.4); Hematocrit 39.3 % (42.0-52.0); Immature Granulocyte Absolute 0.03 K/mm3 (0.00-0.031); Immature Granulocyte Percent A 0.6 % (0-0.5); Lymphocytes Absolute Auto 1.26 K/mm3 (0.9-3.2); Lymphocytes Percent Auto 25.4 % (18.3-44.2); Mean Corpuscular HGB Conc 33.1 g/dl (32-36); Mean Corpuscular Hemoglobin 30.7 pg (26-34); Mean Corpuscular Volume 92.7 fl (80-100); Mean Platelet Volume 9.4 fl (7.4-10.4); Monocytes Absolute Auto 0.8 K/mm3 (0.1-0.6); Monocytes Percent Auto 15.1 % (2.6-8.5); Neutrophils Absolute Auto 2.7 K/mm3 (1.3-6.7); Neutrophils Percent Auto 54.1 % (45.5-73.1); Platelet Count Result 181 k/mm3 (150-375); Red Blood Count 4.24 M/mm3 (4.6-6.20); Red Cell Distribution Width 13.2 % (11.5-14.5)
[2021-08-04 06:24] LABS: Alanine Aminotransferase 29 U/L (4-50); Albumin Level 3.3 g/dL (3.5-5.1); Alkaline Phosphatase 59 U/L (38-126); Anion Gap 4 mmol/L (8-16); Aspartate Amino Transferase 42 U/L (17-59); Bilirubin,Total 0.7 mg/dL (0.2-1.3); Blood Urea Nitrogen 7 mg/dL (9-20); Calcium 8.9 mg/dL (8.4-10.2); Carbon Dioxide 29 mmol/L (22-30); Chloride 103 mmol/L (98-107); Estimated CRCL calculation 82 ml/min; Estimated Glomerular Filt Rate > 60; Glucose 102 mg/dL (65-110); Magnesium 2.1 mg/dL (1.6-2.3); Potassium 3.8 mmol/L (3.4-5.0); Sodium 136 mmol/L (137-145)
[2021-08-04] MEDS: amLODIPine BESYLATE 5 MG TABLET 10 MG PO (08:04)
[2021-08-04] MEDS: hydroCHLOROthiazide 12.5 MG CAPSULE PO (08:04)
[2021-08-04] MEDS: CHOLECALCIFEROL 1,000 UNITS TABLET 1000 UNITS PO (08:04)
[2021-08-04 08:08] VITALS: RESP 20; O2SAT 98
[2021-08-04 08:55] VITALS: BP 127/82; PULSE 60; RESP 18; TEMP 36.9; O2SAT 97
--- NOTE | 2021-08-04 09:15 | PM.DS ---
DS: Admitting Diagnosis Discharge Date 08/04/21 0915 Admitting Diagnosis UTI/Bacteremia DS: Discharge Diagnosis Discharge Diagnosis (1) Sepsis: Code(s): A41.9 - Sepsis, unspecified organism Status: Acute Assessment and Plan: Sepsis criteria met with leukocytosis, fever, tachycardia, and FATEMEH Lactic acid 1.1 Source is urinary tract infection Blood culture positive with gram negative bacilli Urine culture positive, gram negative bacilli WBC elevated at 4.7 today better Continue ceftriaxone Continue to trend labs Will need 2 weeks of IV therapy (2) Bacteremia: Code(s): R78.81 - Bacteremia Status: Acute Assessment and Plan: Blood cultures positives with gram negative bacilli Continue with IV ceftriaxone Source seems to be from the urine trend labs Could possibly need to be on [facility] antibiotics Trend WBCs repeat blood cultures ordered Will need a midline/PICC time for IV antibiotic administration (3) Acute UTI: Code(s): N39.0 - Urinary tract infection, site not specified Status: Acute Assessment and Plan: UA shows cloudy urine with 1+ blood, positive nitrates, 1+ leukocyte esterase, 31-50 WBC, trace bacteria, few mucus Patient received Rocephin in the emergency room. Continue Rocephin until sensitives come back await culture and sensitivities urologist has been consult and appreciate further recommendations (4) HTN (hypertension): Qualifiers: Hypertension type: unspecified Qualified Code(s): I10 - Essential (primary) hypertension Code(s): I10 - Essential (primary) hypertension Status: Chronic Assessment and Plan: Current BP 128/65 Resume home amlodipine 10mg PO daily, HTCZ 12.5mg PO daily Trend BP Adjust therapy as indicated (5) Pulmonary embolism: Qualifiers: Acute cor pulmonale presence: unspecified Chronicity: acute Pulmonary embolism type: unspecified Qualified Code(s): I26.99 - Other pulmonary embolism without acute cor pulmonale Code(s): I26.99 - Other pulmonary embolism without acute cor pulmonale Status: Acute Assessment and Plan: Patient states that he was on Eliquis at home for his pulmonary embolism Reports having some hematuria after starting Eliquis, which provoked him to see a urologist No currently on anticoagulation Independent in the room (6) FATEMEH (acute kidney injury): Code(s): N17.9 - Acute kidney failure, unspecified Status: Acute Assessment and Plan: BUN/Cr elevated from baseline Back to baseline at 7/0.9 IV fluids on board, can DC at this point trend labs Avoid nephrotoxic medications Continue to trend (7) Hypokalemia: Code(s): E87.6 - Hypokalemia Status: Acute Assessment and Plan: K is 3.3 Replace with 40mcg PO, repeated Trend labs Labs in the am DS: Summary Hospital Course Hospital Course: Patient is 66-year-old male with past medical history of hypertension, BPH, pneumonia who presented the ED with fever, weakness, chills. Patient had followed up with his urologist who did a biopsy that prior Wednesday. UA was collected did show signs infection. The cultures were also taken due to patient having sepsis with leukocytosis, fever, tachycardia an AKA. IV fluids were also started and patient was started on IV antibiotics. Blood pressures have been stable since admission. Blood cultures had came back positive for E coli along with urine culture. Patient was kept on IV antibiotics and will need to continue IV antibiotics for total of 14 doses. Patient has been doing well and denies any complaints of chest pain, shortness of breath, nausea, vomiting, diarrhea, constipation or weakness or fatigue. Patient is stable for discharge at this time and all lab and vitals are stable. Status at Discharge Functional status at di
--- NOTE | 2021-08-04 09:15 | P.DS_ITS ---
DS: Admitting Diagnosis Discharge Date 08/04/21 0915 Admitting Diagnosis UTI/Bacteremia DS: Discharge Diagnosis Discharge Diagnosis (1) Sepsis: Code(s): A41.9 - Sepsis, unspecified organism Status: Acute Assessment and Plan: * Sepsis criteria met with leukocytosis, fever, tachycardia, and FATEMEH * Lactic acid 1.1 * Source is urinary tract infection * Blood culture positive with gram negative bacilli * Urine culture positive, gram negative bacilli * WBC elevated at 4.7 today better * Continue ceftriaxone * Continue to trend labs * Will need 2 weeks of IV therapy (2) Bacteremia: Code(s): R78.81 - Bacteremia Status: Acute Assessment and Plan: * Blood cultures positives with gram negative bacilli * Continue with IV ceftriaxone * Source seems to be from the urine * trend labs * Could possibly need to be on exterminator helper antibiotics * Trend WBCs * repeat blood cultures ordered * Will need a midline/PICC time for IV antibiotic administration (3) Acute UTI: Code(s): N39.0 - Urinary tract infection, site not specified Status: Acute Assessment and Plan: * UA shows cloudy urine with 1+ blood, positive nitrates, 1+ leukocyte esterase, 31-50 WBC, trace bacteria, few mucus * Patient received Rocephin in the emergency room. * Continue Rocephin until sensitives come back * await culture and sensitivities * urologist has been consult and appreciate further recommendations (4) HTN (hypertension): Qualifiers: Hypertension type: unspecified Qualified Code(s): I10 - Essential (primary) hypertension Code(s): I10 - Essential (primary) hypertension Status: Chronic Assessment and Plan: * Current BP 128/65 * Resume home amlodipine 10mg PO daily, HTCZ 12.5mg PO daily * Trend BP * Adjust therapy as indicated (5) Pulmonary embolism: Qualifiers: Acute cor pulmonale presence: unspecified Chronicity: acute Pulmonary embolism type: unspecified Qualified Code(s): I26.99 - Other pulmonary embolism without acute cor pulmonale Code(s): I26.99 - Other pulmonary embolism without acute cor pulmonale Status: Acute Assessment and Plan: * Patient states that he was on Eliquis at home for his pulmonary embolism * Reports having some hematuria after starting Eliquis, which provoked him to see a urologist * No currently on anticoagulation * Independent in the room (6) FATEMEH (acute kidney injury): Code(s): N17.9 - Acute kidney failure, unspecified Status: Acute Assessment and Plan: * BUN/Cr elevated from baseline * Back to baseline at 7/0.9 * IV fluids on board, can DC at this point * trend labs * Avoid nephrotoxic medications * Continue to trend (7) Hypokalemia: Code(s): E87.6 - Hypokalemia Status: Acute Assessment and Plan: * K is 3.3 * Replace with 40mcg PO, repeated * Trend labs * Labs in the am DS: Summary Hospital Course Hospital Course: Patient is 66-year-old male with past medical history of hypertension, BPH, pneumonia who presented the ED with fever, weakness, chills. Patient had followed up with his urologist who did a biopsy that prior Wednesday. UA was collected did show signs infection. The cultures were also taken due to patient having sepsis with leukocytosis, fever, tachycardia an AKA. IV flu
[2021-08-04] MEDS: LIDOCAINE HCL 1% LOCAL INJ 2 ML AMPUL 5 ML INFILTRATE (13:00)
--- NOTE | 2021-08-04 13:54 | WPDUROPN2 ---
Progress Note: A&P Assessment and Plan (1) Bacteremia: Code(s): R78.81 - Bacteremia Status: Acute (2) Prostate cancer: Code(s): C61 - Malignant neoplasm of prostate Status: Acute Assessment and Plan: Pt. feeling much better - no voiding symptoms. Plans for Ceftriaxone at home noted. Pathology report on prostate biopsy was positive. I reviewed with pt. at length. He'll need staging and consultation with Dr. Easley as outpatient. Subjective Subjective Date/Time Seen: 08/04/21 13:54 Comfortable, no complaints Review of Systems Cardiovascular: Cardiovascular: Denies chest pain, Denies lightheadedness, Denies palpitations and Denies dyspnea Respiratory: Respiratory: Denies dyspnea Gastrointestinal: Gastrointestinal: Denies diarrhea, Denies nausea and Denies vomiting Genitourinary: Genitourinary: Denies hematuria and Denies dysuria Endocrine: Endocrine: Denies palpitations Exam Const: General: no acute distress Resp: Effort & Inspection: normal respiratory effort GI: Inspection: non-distended GI Palp: No abdominal tenderness and No Guarding due to palpation present (GI) Auscultation: normal bowel sounds Objective Data Vital Signs Vital Signs: Vital Signs - 24 hr 08/03/21 16:00 08/03/21 20:00 08/03/21 22:40 Temperature 98.1 F 97.0 F L Pulse Rate 72 61 61 Respiratory Rate 17 21 H Blood Pressure 112/65 115/78 Pulse Oximetry 98 98 98 08/04/21 00:00 08/04/21 04:00 08/04/21 08:08 Temperature 97.0 F L 98.0 F Pulse Rate 62 57 L Respiratory Rate 20 20 20 Blood Pressure 110/68 146/83 H Pulse Oximetry 98 98 98 08/04/21 08:55 Temperature 98.4 F Pulse Rate 60 Respiratory Rate 18 Blood Pressure 127/82 Pulse Oximetry 97 Intake/Output Intake/Output: Intake & Output 08/01/21 08/02/21 08/03/21 08/04/21 23:59 23:59 23:59 23:59 Intake Total 5250 3685 2910 1180 Output Total 400 2350 2400 1900 Balance 4850 1335 510 -720 Meds/Results Medications: Active Medications Generic Name Dose Route Start Last Admin Trade Name Freq PRN Reason Stop Dose Admin Acetaminophen 650 mg 07/31/21 16:04 07/31/21 21:15 Acetaminophen 325 Mg Tablet PO 650 mg Q4H PRN Administration Mild Pain (1-3) or Fever Amlodipine Besylate 10 mg 08/01/21 09:00 08/04/21 08:04 Amlodipine Besylate 5 Mg Tablet PO 10 mg DAILY SYDNEE Administration Atorvastatin Calcium 40 mg 08/01/21 21:00 08/03/21 20:35 Atorvastatin 40 Mg Tablet PO 40 mg DAILY@2100 SYDNEE Administration Hydrochlorothiazide 12.5 mg 08/01/21 09:00 08/04/21 08:04 Hydrochlorothiazide 12.5 Mg Capsule PO 12.5 mg DAILY SYDNEE Administration Ceftriaxone Sodium/Dextrose 1 gm in 50 mls @ 100 mls/hr 08/01/21 15:00 08/03/21 14:40 Rocephin 1 Gm/D5w 50 Ml IVPB Infused Q24H SYDNEE Infusion Latanoprost 1 drop 07/31/21 21:00 08/03/21 20:35 Latanoprost 0.005% Op Soln 2.5 Ml Btl EACH EYE 1 drop HS SYDNEE Administration Morphine Sulfate 4 mg 07/31/21 16:04 Morphine Sulfate (*Crx) 4 Mg/Ml Inj IV PUSH Q2H PRN Pain Rated 7-10 Ondansetron HCl 4 mg 07/31/21 16:04 Ondansetron Inj 4 Mg/2 Ml Vial IV PUSH Q4H PRN Nausea Fluticasone/Salmeterol 2 puff 08/01/21 08:00 08/04/21 08:37 Fluticasone/Salmeterol 115-21 Mcg Inhaler 1 Puff INHALATION Not Given Q12HRT SYDNEE Sodium Chloride 10 ml 08/04/21 14:00 Saline Lock Flush IV PUSH Q8HR SYDNEE Sodium Chloride 10 ml 08/04/21 11:13 Saline Lock Flush IV PUSH PRN PRN Flush Sodium Chloride 20 ml 08/04/21 11:13 Saline Lock Flush IV PUSH PRN PRN after blood draws Vitamin D 1,000 units 08/01/21 09:00 08/04/21 08:04 Cholecalciferol 1,000 Units Tablet PO 1,000 units DAILY SYDNEE Administration Labs Labs: Laboratory Results - last 24 hr 08/04/21 08/04/21 05:57 05:57 WBC 5.0 RBC 4.24 L Hgb 13.0 L Hct 39.3 L MCV 92.7 MCH 30.7 MCHC 33.
[2021-08-04] MEDS: SALINE LOCK FLUSH 10 ML IV PUSH (14:00)
[2021-08-04 14:01] VITALS: BP 149/81; PULSE 96; RESP 18; TEMP 36; O2SAT 97
== END 2021-08-04 15:30 | disposition home or self-care (01) | DRG 872 ==
LOC: ANHED 15:56 → ANH2MED 17:37
PROVIDERS: Admitting Provider Internal Medicine; Emergency Provider Family Medicine; Visit Provider Nurse Practitioner
DX: A41.51 Sepsis due to Escherichia coli [E. coli] (principal); N39.0 Urinary tract infection, site not specified; N17.9 Acute kidney failure, unspecified; C61 Malignant neoplasm of prostate; R50.82 Postprocedural fever; I10 Essential (primary) hypertension; E87.6 Hypokalemia; N40.0 Benign prostatic hyperplasia without lower urinary tract symptoms; E78.5 Hyperlipidemia, unspecified; H40.9 Unspecified glaucoma; J45.909 Unspecified asthma, uncomplicated; Z86.711 Personal history of pulmonary embolism; Z79.01 Long term (current) use of anticoagulants
CPT/HCPCS: 36415; 36569; 80048; 80053; 81001; 83605; 83735; 85025; 85055; 87040; 87077; 87086; 87088; 87186; 96361; 96365; 99285; A9270; C1751; G0378; J0696; J7030

== ENCOUNTER 2021-08-18 07:07 | Outpatient (RCR) | payer OTHER, SELFPAY | END 2021-11-09 23:59 | disposition home or self-care (01) | LOC: ANHVASCINF 07:07 | PROVIDERS: Visit Provider Nurse Practitioner | DX: R78.81 Bacteremia (principal) | CPT/HCPCS: 99211; G0463 ==

== ENCOUNTER 2021-10-08 11:11 | Inpatient (IN) | payer OTHER, SELFPAY ==
[2021-10-08] VITALS (8 sets, daily range): BP systolic 121–159; BP diastolic 63–85; PULSE 80–108; RESP 14–18; TEMP 36.6–38.3; O2SAT 93–100; BMI 33.4
--- NOTE | ~2021-10-08 | XR_ITS ---
EXAMINATION: XR retrograde pyelo w/stent RT INDICATION: Right distal ureteral stone TECHNIQUE: Six intraoperative fluoroscopic images are submitted for review. Total fluoroscopic time w as 28.9 seconds. COMPARISON: CT from today FINDINGS: Fluoroscopic images demonstrate retrograde opacification of a normal caliber right ureter a nd renal collecting system. A right internal ureteral stent is placed in expected position. Please re eunice to procedure note for full details. IMPRESSION: 1. Right internal ureteral stent in expected position. Please refer to procedure note for full detail s. Reviewed, dictated and finalized at location F. IMPRESSION: 1. Right internal ureteral stent in expected position. Please refer to procedur e note for full details.
--- NOTE | ~2021-10-08 | CT_ITS ---
EXAMINATION: CT pelvis wo con DATE: 10/08/2021 16:02 INDICATION: Ureteral stone. TECHNIQUE: Computed tomography (CT) of the pelvis was performed prone without intravenous contrast. A utomated exposure control and iterative reconstruction technique were employed. The dose-length produ ct was 332.29 mGy-cm. COMPARISON: CT abdomen and pelvis at 1:42 PM FINDINGS: There is an umbilical hernia containing nonobstructed small bowel. There are no dilated loo ps of bowel. The prostate is severely enlarged. There are brachytherapy seeds in the prostate. There are cysts in left kidney measuring up to 2.3 cm. There is a 3 mm stone in distal right ureter. There are greater than 10 stones in the bladder measuring up to 7 mm. There is severe lumbar spondylosis. IMPRESSION: 1. 3 mm stone in distal right ureter. 2. Bladder stones. 3. Umbilical hernia containing nonobstructed small bowel. Reviewed, dictated and finalized at location A.
--- NOTE | ~2021-10-08 | CT_ITS ---
EXAMINATION: CT abdomen pelvis wo con DATE: 10/08/2021 13:49 INDICATION: Abdominal pain. Prostate biopsy one month ago. Subsequent urinary tract infection, sepsis Urinary retention. TECHNIQUE: Computed tomography (CT) of the abdomen and pelvis was performed without intravenous contr ast. Automated exposure control and iterative reconstruction technique were employed. Exam dose: 103 6.24 mGy-cm total exam DLP. COMPARISON: 07/16/[address] abdomen pelvis FINDINGS: Heart size is normal. No pericardial or pleural effusion. There is discoid atelectasis and/or scarring at the lung bases. Small sliding hiatal hernia. The liver, gallbladder, bile ducts, spleen, pancreas and adrenal glands are unremarkable on this limi bala noncontrast examination. Multiple bilateral stable benign-appearing renal cysts. 3.4 mm distal right ureteral calculus. There are multiple stones of various size in the dependent asp ect of the urinary bladder, primarily on the right side, measuring up to 8.7 mm approximate maximal d imension. Prominent prostatomegaly, impressing the base of the urinary bladder. There is mild diffuse bladder w all thickening. Normal caliber of the abdominal aorta. No intraperitoneal or retroperitoneal or pelvic mass lesion or lymphadenopathy is detected. Up to 3.7 cm wide umbilical hernia containing fat and a loop of nonobstructed small bowel. There is a prominent amount of fecal material in the colon. No bowel obstruction is detected. Degenerative changes of the thoracic and lumbar spine, including degenerative disc disease in the lum bar area with associated minimal retrolisthesis at L2-3 and L5-S1, the degenerative disc disease most prominent at L4-5 and L5-S1. There is prominent degenerative change at the lower lumbar and lumbosac ral apophyseal joints. No suspicious osteolytic or osteoblastic lesions. IMPRESSION: 3.4 mm distal right ureteral calculus Bilateral renal cysts, stable since 07/16/2019 Multiple urinary bladder calculi Prominent prostatomegaly 3.7 cm wide umbilical hernia containing a loop of nonobstructed small bowel Small sliding hiatal hernia Reviewed, dictated and finalized at Location A. Reviewed, dictated and finalized at location A.
[2021-10-08 12:00] LABS: Add Urine Microscopic? YES; Appearance Urine Slightly Cloudy (Clear); Bilirubin Urine 1+ (Negative); Blood Urine 2+ (Negative); Color Urine Yellow (Yellow); Glucose Urine UA Negative (Negative); Ketones Urine 1+ mg/dL (Negative); Leukocyte Esterase Ur 1+ LEU/UL (Negative); Nitrate Urine Positive (Negative); Protein Urine 2+ mg/dL (Negative); Specific Grav Ur >= 1.030 (1.001-1.035); Urobilinogen Urine 0.2 mg/dL (<2.0); pH Urine 5.5 (5.0-9.0)
[2021-10-08 12:10] LABS: Bacteria Urine 3+ /hpf; Mucus Urine Few /lpf; Squamous Epithelial Cell Urine Rare /hpf (Few); WBC Urine >75 /hpf
--- NOTE | 2021-10-08 12:38 | ED.GENADULT ---
HPI - General Adult General Chief complaint: Urogenital-Male Stated complaint: difficulty voiding Time Seen by Provider: 10/08/21 12:17 Source: RN notes reviewed History of Present Illness HPI narrative: Patient presents emergency department from home for difficulty urinating. Patient states that he has a history of prostate cancer he states that he had a biopsy done approximately month ago and then just had markers placed by Dr. Easley for urology on this past Wednesday he states he has been on Cipro 500 twice daily since that procedure he states that he felt like he was having some difficulty urinating and gone to the urgent care the following day on Wednesday at that time his UA has been cleared he had been continued on his Cipro patient states over the past day he has been running low-grade fevers up to 100.4 he states that he has been having frequent urinations does not feel like he fully empties he denies any fevers or chills chest pain shortness of breath abdominal pain nausea vomiting or any other symptoms. States that his previous prostate biopsy he ended up in the hospital for 4 days with sepsis secondary to UTI Related Data Home Medications Medication Instructions Recorded Confirmed amlodipine 10 mg tablet 10 mg PO DAILY 05/18/20 07/31/21 atorvastatin 40 mg tablet 40 mg PO DAILY 05/18/20 07/31/21 cholecalciferol (vitamin D3) 25 1,000 unit PO DAILY 05/18/20 07/31/21 mcg (1,000 unit) capsule (Vitamin D3) fluticasone furoate 100 1 inh inhalation DAILY 05/18/20 07/31/21 mcg-vilanterol 25 mcg/dose inhalation powder (Breo Ellipta) hydrochlorothiazide 25 mg tablet 12.5 mg PO DAILY 05/18/20 07/31/21 latanoprost 0.005 % eye drops 1 drp ophthalmic (eye) HS 05/18/20 07/31/21 tadalafil 5 mg tablet 5 mg PO DAILY PRN Erectile 05/18/20 07/31/21 Dysfunction Allergies Allergy/AdvReac Type Severity Reaction Status Date / Time No Known Allergies Allergy Unknown Unverified 07/31/21 12:33 Review of Systems Review of Systems: Gen.: Reports fever denies chills ENT: Denies congestion Respiratory: Denies shortness of breath or cough CV: Denies chest pain or palpitations GI: Denies abdominal pain nausea, emesis or diarrhea see HPI Musculoskeletal: Denies back pain or muscle pain Neuro: Denies numbness, tingling, weakness or focal weakness Skin: Denies rash Except as documented, all other systems reviewed and negative [facility] Past Medical History Medical History Asthma BPH (benign prostatic hyperplasia) Glaucoma HTN (hypertension) Nose fracture Pneumonia Surgical History Surgical History No pertinent past surgical history Family History Family History Mother Pulmonary embolism Social History Social History Smoking status: Never smoker Alcohol intake: current Drinks per week: 6 Substance use: never Substance use type: does not use Gender identity (if verbalized by the patient): Male Spiritual care concerns: No Exam Narrative: APPEARANCE: No acute distress, nontoxic, resting in bed EYES: EOMI HEENT: Normocephalic, atraumatic, OMM RESPIRATORY: No respiratory distress Clear to auscultation bilaterally with no rhonchi wheezing or rales. CARDIOVASCULAR: Regular rate and rhythm without murmurs rubs or gallops. ABDOMINAL: Soft, nontender, nondistended, no rebound or guarding MUSCULOSKELETAl: Moves all extremities. No clubbing, cyanosis or edema. NEURO: Awake and alert. Following commands, speech normal, no focal deficits SKIN:: Warm, dry. No rashes lesions or abrasions PSYCHIATRIC: Normal affect/mood, Course Course Emergency Course: Discussed with NP. Mattson for Dr. Thomas request CT abdomen pelvis be obtained Discussed with MALIKA Quinones for Dr. Cerna agrees with luis alfredo
[2021-10-08] MEDS: SODIUM CHLORIDE 0.9% IV 1,000 ML 999 ML IV CONT (12:44)
[2021-10-08 12:51] LABS: Basophils Percent Auto 0.2 % (0.2-1.2); Eosinophils Absolute Auto 0.1 K/mm3 (0-0.3); Eosinophils Percent Auto 0.3 % (0-4.4); Hematocrit 40.8 % (42.0-52.0); Hemoglobin 13.5 g/dL (14.0-18.0); Immature Granulocyte Absolute 0.08 K/mm3 (0.00-0.031); Immature Granulocyte Percent A 0.6 % (0-0.5); Lymphocytes Absolute Auto 0.73 K/mm3 (0.9-3.2); Lymphocytes Percent Auto 5.1 % (18.3-44.2); Mean Corpuscular HGB Conc 33.1 g/dl (32-36); Mean Corpuscular Hemoglobin 31.2 pg (26-34); Mean Corpuscular Volume 94.2 fl (80-100); Mean Platelet Volume 9.8 fl (7.4-10.4); Monocytes Absolute Auto 1.9 K/mm3 (0.1-0.6); Monocytes Percent Auto 13.3 % (2.6-8.5); Neutrophils Absolute Auto 11.5 K/mm3 (1.3-6.7); Neutrophils Percent Auto 80.5 % (45.5-73.1); Platelet Count Result 239 k/mm3 (150-375); Red Blood Count 4.33 M/mm3 (4.6-6.20); Red Cell Distribution Width 14.2 % (11.5-14.5); White Blood Count 14.3 K/mm3 (4.5-10.0)
[2021-10-08 13:01] LABS: Lactic Acid Reflex 1.1 mmol/L (0.7-2.0)
[2021-10-08 13:03] LABS: Alanine Aminotransferase 57 U/L (6-50); Albumin Level 3.8 g/dL (3.5-5.1); Alkaline Phosphatase 109 U/L (38-126); Anion Gap 8 mmol/L (8-16); Aspartate Amino Transferase 65 U/L (17-59); Bilirubin,Total 1.5 mg/dL (0.2-1.3); Blood Urea Nitrogen 9 mg/dL (9-20); Calcium 9.4 mg/dL (8.4-10.2); Carbon Dioxide 25 mmol/L (22-30); Chloride 105 mmol/L (98-107); Estimated CRCL calculation 97 ml/min; Estimated Glomerular Filt Rate > 60; Glucose 112 mg/dL (65-110); Potassium 3.4 mmol/L (3.4-5.0); Sodium 138 mmol/L (137-145)
--- NOTE | 2021-10-08 15:05 | WPDURCON ---
Assessment and Plan Assessment and plan (1) Prostate cancer: Code(s): C61 - Malignant neoplasm of prostate Status: Acute Assessment and Plan: Dr. Easley will be notified, and he will continue to follow up with him for treatment after discharge. (2) Benign prostatic hyperplasia: Code(s): N40.0 - Benign prostatic hyperplasia without lower urinary tract symptoms Status: Acute Assessment and Plan: Will start Tamsulosin d/t difficult urination despite a normal PVR. (3) Acute UTI: Code(s): N39.0 - Urinary tract infection, site not specified Status: Acute (4) Sepsis: Code(s): A41.9 - Sepsis, unspecified organism Status: Acute Assessment and Plan: Continue IV Rocephin, tailor antibiotics to culture results. (5) Kidney stone on right side: Code(s): N20.0 - Calculus of kidney Status: Acute Assessment and Plan: Plan to go to the OR today for a Cystoscopy, right stent placement, right retrograde pyelogram, possible bladder stone removal. Patient has bladder stones and a distal right ureteral stone. Keep NPO. Obtain consent. Urology Consult Note HPI Date Seen: 10/08/21 Time Seen: 15:30 Primary Care Provider: Arthur Holly MD Consult Narrative Reason for consult: Difficulty with urination/UTI Narrative: Mina Mcguire is a 66 year old male who presented to the ER this afternoon for worsening symptoms s/p gold seed placement in the prostate on 10/03/[address] Juan Easley in preparation for prostate radiation. He states he developed dysuria and a fever that evening so he went to but they declared that his urine was normal and sent him home as he was started on Ciprofloxacin after the gold seed placement. He then proceeded Wednesday to get his COVID booster shot and continued to have dysuria, with intermittent fevers as high as 104, chills, frequency and difficulty with urination. Therefore he proceeded to the ER today. He is currently afebrile, has a normal PVR of 150cc, his UA is suggestive of a UTI, WBC is elevated 14.3, creatinine is normal at 0.80. A urine culture and blood cultures are pending at this time. After speaking with Dr. Craig when he arrived I asked him to order a CT of the abdomen and pelvis to rule out a prostate abscess, however we found a right distal ureteral stone measuring 3mm in addition to bladder stones measuring up to 8mm. He states he spontaneously passed a stone several years ago but has never had stone surgery or a history of recurrent UTI's. Review of Systems Cardiovascular: Cardiovascular: Denies chest pain Respiratory: Respiratory: Denies dyspnea Gastrointestinal: Gastrointestinal: Denies abdominal pain, Denies nausea and Denies vomiting Genitourinary: Genitourinary: Denies hematuria, Reports dysuria, Denies flank pain, Reports urinary frequency and Reports urinary hesitancy [facility] Past Medical History Medical History (Updated 10/08/21 @ 16:14 by Stacie Morejon PA-C) Asthma Benign prostatic hyperplasia E coli bacteremia (07/2021) Post prostate biopsy. Glaucoma Hypertension Pneumonia Prostate cancer Pulmonary embolism (05/2020) Surgical History Surgical History (Updated 10/08/21 @ 16:14 by Stacie Morejon PA-C) History of prostate biopsy (07/29/21) Family History Family History Mother Pulmonary embolism Social History Social History Smoking status: Never smoker Alcohol intake: current Drinks per week: 6 Substance use: never Substance use type: does not use Spiritual care concerns: No Meds Home Medications and Allergies Home Medications Medication Instructions Recorded Confirmed Type amlodipine 10 mg tablet 10 mg PO DAILY 05/18/20 07/31/21 History atorvastatin 40 mg tablet 40 mg PO DAILY 05/18/20 07/31/21 History cholecalciferol (vitamin
[2021-10-08] MEDS: LACTATED RINGERS 1,000 ML 30 ML IV CONT (16:00)
--- NOTE | 2021-10-08 16:00 | PM.IMHP ---
H&P: HPI History of Present Illness Date/Time: 10/08/21 15:00 Chief Complaint: Difficulties voiding. Narrative: This is a very pleasant 66-year-old male with hypertension, benign prostatic hyperplasia, and prostate cancer who presented to the ED for evaluation of difficulties voiding. He was diagnosed with prostate cancer in July 2021 and he was admitted to this facility shortly thereafter with E coli urinary tract infection and bacteremia. This past Wednesday he had fiducial markers placed by his urologist, Dr. Easley and he has been on ciprofloxacin 500 mg b.i.d. since that procedure. He has had difficulties urinating since that time with feelings of incomplete bladder evacuation, dysuria, and mild hematuria. He also endorses sweats and a low-grade fever up to 100.4? F. he was seen at urgent care on Wednesday at which time his urinalysis was reportedly unremarkable and he was told to continue his ciprofloxacin. Unfortunately his symptoms have persisted and he returned to the ER today. He was afebrile on arrival and his vital signs have been stable. Urinalysis is positive for nitrates, leukocyte esterase, bacteria, and multiple white blood cells. CT of the abdomen and pelvis showed a 3.4 mm distal right ureteral calculus, stable bilateral renal cysts, and multiple urinary bladder calculi. He is now status post cystoscopy with right ureteral stent insertion and bladder stone extraction per Dr. Thomas. At the time my evaluation he is resting comfortably in his room. A Hull catheter was inserted at the time of his procedure and is draining dark yellow urine admixed with small blood clots. He has no specific complaints and denies current fever, chills, sweats, nausea, and vomiting. Review of Systems Review of Systems: Twelve systems were reviewed. No recent cold or flu symptoms. Asthma is very mild and is well controlled. Has a history of pulmonary embolism and his Eliquis was stopped probably 6 months ago due to the development of mild hematuria. He has not had chest pain or shortness of breath. No lower extremity edema or calf pain. Appetite has been good. Except as documented, all other systems were reviewed and are negative. [facility] Past Medical History Medical History (Updated 10/09/21 @ 00:06 by Stacie Morejon PA-C) Asthma Benign prostatic hyperplasia E coli bacteremia (07/2021) Post prostate biopsy. Glaucoma Hypertension Pneumonia Prostate cancer Pulmonary embolism (05/2020) Surgical History Surgical History (Updated 10/08/21 @ 23:56 by Stacie Morejon PA-C) History of prostate biopsy (07/29/21) Status post excision of lipoma Left thigh. Family History Family History Mother Pulmonary embolism Social History Social History (Updated 10/09/21 @ 00:00 by Stacie Morejon PA-C) Social History: Surrogate decision maker: Carly Mcguire, spouse. Code status: Full code. Smoking status: Never smoker Alcohol intake: current Drinks per week: 2 Substance use: never Substance use type: does not use Additional living arrangements comments: The patient lives with his in [place]. 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 Spiritual care concerns: No Meds Home Medications and Allergies Home Medications Medication Instructions Recorded Confirmed Type amlodipine 10 mg tablet 10 mg PO DAILY 05/18/20 10/08/21 History cholecalciferol (vitamin D3) 25 1,000 unit PO DAILY 05/18/20 10/08/21 History mcg (1,000 unit) capsule (Vitamin D3) fluticasone furoate 100 1 inh inhalation DAILY 05/18/20 10/08/21 History mcg-vilanterol 25 mcg/dose inhalation powder (Breo Ellipta) latanoprost 0.005 % eye deangelo
--- NOTE | 2021-10-08 16:38 | WPDANESEPPF ---
Anes - Initial Pre Proc Eval Procedure: Operation Date: 10/08/21 17:30 Proposed Procedures p Cystoscopy,Right Retrograde Pyelogram,Right Stent Placement,Possible Bladder Stone Extraction - Eula Garcia MD Date/Time: 10/08/21 16:38 Surgeon: Jameson Thomas, Pre Op Diagnosis: difficulty voiding Patient Data Age: 66 Gender: M Height: 1.83 m Weight: 107.5 kg Last Vital Signs Temp 37.1 C 10/08/21 16:00 Pulse 80 10/08/21 16:00 Resp 18 10/08/21 16:00 BP 148/67 H 10/08/21 16:00 Pulse Ox 100 10/08/21 16:00 O2 Del Method Room Air 10/08/21 16:00 Allergies Allergy/AdvReac Type Severity Reaction Status Date / Time No Known Allergies Allergy Unknown Unverified 07/31/21 12:33 Home Medications Medication Instructions Recorded Confirmed Type amlodipine 10 mg tablet 10 mg PO DAILY 05/18/20 10/08/21 History atorvastatin 40 mg tablet 40 mg PO DAILY 05/18/20 10/08/21 History cholecalciferol (vitamin D3) 25 1,000 unit PO DAILY 05/18/20 10/08/21 History mcg (1,000 unit) capsule (Vitamin D3) fluticasone furoate 100 1 inh inhalation DAILY 05/18/20 10/08/21 History mcg-vilanterol 25 mcg/dose inhalation powder (Breo Ellipta) hydrochlorothiazide 25 mg tablet 12.5 mg PO DAILY 05/18/20 10/08/21 History latanoprost 0.005 % eye drops 1 drp ophthalmic (eye) HS 05/18/20 10/08/21 History tadalafil 5 mg tablet 5 mg PO DAILY PRN Erectile 05/18/20 10/08/21 History Dysfunction ceftriaxone 1 gram intravenous 1 g IV Q24H #11 ea 08/04/21 10/08/21 Rx solution heparin, porcine (PF) 10 unit/mL 10 unit IV DAILY #180 mL 08/04/21 10/08/21 Rx intravenous syringe (Heparin Lock Flush (Porcine) (PF)) sodium chloride 0.9 % injection 1 syr IV PUSH PRN PRN Flush #600 mL 08/04/21 10/08/21 Rx syringe Laboratory Tests 10/08/21 10/08/21 10/08/21 11:49 12:44 12:44 WBC 14.3 K/mm3 H K/mm3 (4.5-10.0) RBC 4.33 M/mm3 L M/mm3 (4.6-6.20) Hgb 13.5 g/dL L g/dL (14.0-18.0) Hct 40.8 % L % (42.0-52.0) MCV 94.2 fl fl (80-100) MCH 31.2 pg pg (26-34) MCHC 33.1 g/dl g/dl (32-36) RDW 14.2 % % (11.5-14.5) Plt Count 239 k/mm3 k/mm3 (150-375) MPV 9.8 fl fl (7.4-10.4) Immature Gran % (Auto) 0.6 % H % (0-0.5) Neut % (Auto) 80.5 % H % (45.5-73.1) Lymph % (Auto) 5.1 % L % (18.3-44.2) Barren % (Auto) 13.3 % H % (2.6-8.5) Eos % (Auto) 0.3 % % (0-4.4) Baso % (Auto) 0.2 % % (0.2-1.2) Lymph # (Auto) 0.73 K/mm3 L K/mm3 (0.9-3.2) Barren # (Auto) 1.9 K/mm3 H K/mm3 (0.1-0.6) Eos # (Auto) 0.1 K/mm3 K/mm3 (0-0.3) Baso # (Auto) 0.0 K/mm3 K/mm3 (0.0-0.1) Abs Immat Gran (auto) 0.08 K/mm3 H K/mm3 (0.00-0.031) Absolute Neuts (auto) 11.5 K/mm3 H K/mm3 (1.3-6.7) Absolute Nucleated RBC 0.0 K/mm3 K/mm3 (0.0-0.012) Nucleated RBC % 0.0 % % (0.0-0.2) Sodium 138 mmol/L mmol/L (137-145) Potassium 3.4 mmol/L mmol/L (3.4-5.0) Chloride 105 mmol/L mmol/L (98-107) Carbon Dioxide 25 mmol/L mmol/L (22-30) Anion Gap 8 mmol/L mmol/L (8-16) BUN 9 mg/dL mg/dL (9-20) Creatinine 0.80 mg/dL mg/dL (0.7-1.3) Estim Creat Clear Calc 97 ml/min ml/min Estimated GFR > 60 (59 - ) Glucose 112 mg/dL H mg/dL (65-110) Lactic Acid Calcium 9.4 mg/dL mg/dL (8.4-10.2) Total Bilirubin 1.5 mg/dL H mg/dL (0.2-1.3) AST 65 U/L H U/L (17-59) ALT 57 U/L H U/L (6-50) Alkaline Phosphatase 109 U/L U/L (38-126) Total Protein 8.0 g/dL g/dL (6.3-8.2) Albumin 3.8 g/dL g/dL (3.5-5.1) Urine Color Yellow (Yellow) Urine Appearance Slightly cloudy (Clear) Urine pH 5.5
--- NOTE | 2021-10-08 18:01 | W.PM.PROC2 ---
Procedure Note - Detailed Date of Procedure 10/08/21 Pre-op Diagnosis Right ureteral stone, sepsis, bladder stones Post-op Diagnosis Same Procedure Performed Cystoscopy, right retrograde pyelogram, right ureteral stent insertion, bladder stone evacuation Surgeon Eula Garcia MD Description of Procedure Informed consents obtained. Patient taken to operating room. He is given preop IV antibiotics in the emergency department ceftriaxone. He was induced with a MAC anesthesia. He was placed in the dorsal lithotomy position. He was prepped and draped. We inserted a 22 F cystoscope through the urethra into the bladder. The patient did have prostatic enlargement with a high bladder neck. Upon entering the bladder multiple bladder stones were seen, the bladder was emptied and multiple stones were evacuated, additional stones that remained. We then identified the right ureteral orifice. It was cannulated with a wire and 5 F angiographic catheter was used to perform a retrograde pyelogram that showed mild right hydronephrosis. Over the wire we placed a 6 F variable length stent with a curl in the renal pelvis and a curl in the bladder. A 16 F coude Hull catheter was placed. Patient taken recovery room stable condition Pathology Yes Complications No immediate complications Condition Stable Disposition PACU
[2021-10-08 19:19] LABS: Basophils Percent Auto 0.2 % (0.2-1.2); Eosinophils Percent Auto 0.1 % (0-4.4); Hemoglobin 12.6 g/dL (14.0-18.0); Immature Granulocyte Percent A 0.7 % (0-0.5); Lymphocytes Percent Auto 4.3 % (18.3-44.2); Mean Corpuscular HGB Conc 32.3 g/dl (32-36); Mean Corpuscular Volume 95.8 fl (80-100); Mean Platelet Volume 9.8 fl (7.4-10.4); Monocytes Absolute Auto 1.3 K/mm3 (0.1-0.6); Monocytes Percent Auto 9.3 % (2.6-8.5); Neutrophils Absolute Auto 11.8 K/mm3 (1.3-6.7); Neutrophils Percent Auto 85.4 % (45.5-73.1); Platelet Count Result 233 k/mm3 (150-375); Red Blood Count 4.07 M/mm3 (4.6-6.20); Red Cell Distribution Width 14.4 % (11.5-14.5); White Blood Count 13.8 K/mm3 (4.5-10.0)
[2021-10-08 19:30] LABS: Anion Gap 5 mmol/L (8-16); Blood Urea Nitrogen 9 mg/dL (9-20); Calcium 8.8 mg/dL (8.4-10.2); Carbon Dioxide 29 mmol/L (22-30); Chloride 105 mmol/L (98-107); Estimated CRCL calculation 97 ml/min; Estimated Glomerular Filt Rate > 60; Glucose 119 mg/dL (65-110); Potassium 3.7 mmol/L (3.4-5.0); Sodium 139 mmol/L (137-145)
--- NOTE | 2021-10-08 20:18 | ADMGEN ---
This patient, Mina Mcguire, was admitted to [facility] Surg Room 319-01. Patient/family oriented to hospital policies and general routines including ID bracelet, bed and alarms, visiting hours, pain management, procedures, bathroom and other care routines, personal items, smoking policy, room service/diet, and visiting hours. Information on how to activate the Rapid Response Team has been discussed. Patient/Family are encouraged to report perceived risks to care and to ask questions if they do not understand what they are told or what they should do.
[2021-10-08] MEDS: LATANOPROST 0.005% OP SOLN 2.5 ML BTL 1 DROP EACH EYE (22:02)
[2021-10-08] MEDS: SODIUM CHLORIDE 0.9% IV 1,000 ML 125 ML IV CONT (22:02)
[2021-10-08] MEDS: TAMSULOSIN HCL 0.4 MG CAPSULE PO (22:22)
[2021-10-08] MEDS: SALINE LOCK FLUSH 2 ML IV PUSH (22:23)
[2021-10-09] VITALS (8 sets, daily range): BP systolic 112–135; BP diastolic 62–70; PULSE 73–99; RESP 14–20; TEMP 36.2–37.2; O2SAT 93–100
[2021-10-09] MEDS: SODIUM CHLORIDE 0.9% IV 1,000 ML 125 ML IV CONT ×3 (05:09→21:43)
[2021-10-09] MEDS: SALINE LOCK FLUSH 2 ML IV PUSH ×3 (05:09→21:43)
[2021-10-09 07:03] LABS: Basophils Percent Auto 0.3 % (0.2-1.2); Eosinophils Absolute Auto 0.2 K/mm3 (0-0.3); Eosinophils Percent Auto 1.7 % (0-4.4); Hematocrit 34.8 % (42.0-52.0); Immature Granulocyte Absolute 0.16 K/mm3 (0.00-0.031); Immature Granulocyte Percent A 1.2 % (0-0.5); Lymphocytes Absolute Auto 1.02 K/mm3 (0.9-3.2); Lymphocytes Percent Auto 7.4 % (18.3-44.2); Mean Corpuscular HGB Conc 31.6 g/dl (32-36); Mean Corpuscular Hemoglobin 30.7 pg (26-34); Mean Corpuscular Volume 97.2 fl (80-100); Mean Platelet Volume 9.6 fl (7.4-10.4); Monocytes Absolute Auto 1.9 K/mm3 (0.1-0.6); Monocytes Percent Auto 13.7 % (2.6-8.5); Neutrophils Absolute Auto 10.4 K/mm3 (1.3-6.7); Neutrophils Percent Auto 75.7 % (45.5-73.1); Platelet Count Result 215 k/mm3 (150-375); Red Blood Count 3.58 M/mm3 (4.6-6.20); Red Cell Distribution Width 14.6 % (11.5-14.5); White Blood Count 13.8 K/mm3 (4.5-10.0)
[2021-10-09 07:13] LABS: Alanine Aminotransferase 37 U/L (6-50); Albumin Level 2.9 g/dL (3.5-5.1); Alkaline Phosphatase 84 U/L (38-126); Anion Gap -1 mmol/L (8-16); Aspartate Amino Transferase 34 U/L (17-59); Blood Urea Nitrogen 9 mg/dL (9-20); Calcium 8.3 mg/dL (8.4-10.2); Carbon Dioxide 32 mmol/L (22-30); Chloride 104 mmol/L (98-107); Estimated CRCL calculation 89 ml/min; Estimated Glomerular Filt Rate > 60; Glucose 109 mg/dL (65-110); Potassium 3.8 mmol/L (3.4-5.0); Sodium 135 mmol/L (137-145)
--- NOTE | 2021-10-09 07:27 | WPDUROPN2 ---
Progress Note: A&P Assessment and Plan (1) Bacteremia: Code(s): R78.81 - Bacteremia Status: Acute (2) Right distal ureteral calculus: Code(s): N20.1 - Calculus of ureter Status: Acute (3) Prostate cancer: Code(s): C61 - Malignant neoplasm of prostate Status: Acute Assessment and Plan: Pt. feeling much better - no voiding symptoms. Plans for Ceftriaxone at home noted. Pathology report on prostate biopsy was positive. I reviewed with pt. at length. He'll need staging and consultation with Dr. Easley as outpatient. 10/09/2021 Tolerating catheter and stent well. Continue ceftriaxone pending culture results. Will eventually need cystoscopy with ureteral stone extraction at the time of stent removal ( once his current infection has been thoroughly treated) Subjective Subjective Date/Time Seen: 10/09/21 07:27 Comfortable, tolerating Hull catheter and ureteral stent well Review of Systems Cardiovascular: Cardiovascular: Denies chest pain, Denies lightheadedness, Denies palpitations and Denies dyspnea Respiratory: Respiratory: Denies dyspnea Gastrointestinal: Gastrointestinal: Denies diarrhea, Denies nausea and Denies vomiting Genitourinary: Genitourinary: Denies hematuria and Denies dysuria Endocrine: Endocrine: Denies palpitations Exam Const: General: no acute distress Resp: Effort & Inspection: normal respiratory effort GI: Inspection: non-distended GI Palp: No abdominal tenderness and No Guarding due to palpation present (GI) Auscultation: normal bowel sounds Objective Data Vital Signs Vital Signs: Vital Signs - 24 hr 10/08/21 11:36 10/08/21 16:00 10/08/21 18:01 Temperature 97.9 F 98.7 F 101 F H Pulse Rate 104 H 80 108 H Respiratory Rate 16 18 18 Blood Pressure 159/81 H 148/67 H 135/85 Pulse Oximetry 95 100 97 Oxygen Delivery Room Air Room Air Room Air Oxygen Flow Rate 10/08/21 18:15 10/08/21 18:30 10/08/21 18:46 Temperature Pulse Rate 107 H 104 H 102 H Respiratory Rate 16 14 18 Blood Pressure 150/81 H 131/82 135/80 Pulse Oximetry 93 95 97 Oxygen Delivery Room Air Nasal Cannula Nasal Cannula Oxygen Flow Rate 2 2 10/08/21 21:49 10/08/21 20:00 10/09/21 05:39 Temperature 98.3 F 97.9 F Pulse Rate 103 H 83 Respiratory Rate 18 18 Blood Pressure 121/63 112/62 Pulse Oximetry 97 97 93 Oxygen Delivery Nasal Cannula Oxygen Flow Rate 2 Intake/Output Intake/Output: Intake & Output 10/06/21 10/07/21 10/08/21 10/09/21 23:59 23:59 23:59 23:59 Intake Total 1100 1550 Output Total 40 250 Balance 1060 1300 Meds/Results Medications: Active Medications Generic Name Dose Route Start Last Admin Trade Name Freq PRN Reason Stop Dose Admin Amlodipine Besylate 10 mg 10/09/21 09:00 Amlodipine Besylate 5 Mg Tablet PO DAILY SYDNEE Ceftriaxone Sodium/Dextrose 1 gm in 50 mls @ 100 mls/hr 10/09/21 13:00 Rocephin 1 Gm/D5w 50 Ml IVPB Q24H SYDNEE Sodium Chloride 1,000 mls @ 125 mls/hr 10/08/21 14:35 10/09/21 05:09 Normal Saline Iv IV CONT 125 mls/hr .Q8H SYDNEE Administration Latanoprost 1 drop 10/08/21 21:00 10/08/21 22:02 Latanoprost 0.005% Op Soln 2.5 Ml Btl EACH EYE 1 drop HS SYDNEE Administration Miscellaneous Information 0 each 10/08/21 23:55 Tadalafil- Nonformulary. Hold/ Discontinue While Inpatient? XX 11/07/21 23:54 CLARIFY SYDNEE Non-Formulary Medication 5 mg 10/08/21 23:18 Tadalafil PO DAILY PRN Erectile Dysfunction Fluticasone/Salmeterol 2 puff 10/08/21 20:00 10/09/21 06:13 Fluticasone/Salmeterol 115-21 Mcg Inhaler 1 Puff INHALATION Not Given Q12HRT SYDNEE Sodium Chloride 2 ml 10/08/21 21:15 Saline Lock Flush IV PUSH PRN PRN BEFORE AND AFTER INFUSIONS Sodium Chloride 2 ml 10/08/21 22:00 10/09/21 05:09 Saline Lock Flush IV PUSH 2 ml Q8HR SYDNEE Administration Tamsulosin HCl 0.4 mg 10/08/21 21:00 10/08/21
[2021-10-09] MEDS: FLUTICASONE/SALMETEROL 115-21 MCG INHALER 1 PUFF 2 PUFF INHALATION ×2 (08:29→20:04)
[2021-10-09 08:47] LABS: Hepatitis B Surface Antigen Negative (Negative)
[2021-10-09 08:53] LABS: HAV RESULT Negative (Negative); Hepatitis B Core IgM Result Negative (Negative)
[2021-10-09] MEDS: CHOLECALCIFEROL 1,000 UNITS TABLET 1000 UNITS PO (08:59)
[2021-10-09] MEDS: amLODIPine BESYLATE 5 MG TABLET 10 MG PO (08:59)
[2021-10-09 09:05] LABS: Hepatitis C Virus Antibody Negative (Negative)
--- NOTE | 2021-10-09 09:35 | PCCCNOTE ---
On 10/09/21, the student, [Hazel Wilkinosn], provided care and completed [facility] documentation on this patient. I have reviewed the student's documentation and agree with the findings.
--- NOTE | 2021-10-09 11:15 | PM.IMPN ---
Progress Note: A&P Assessment and Plan (1) Urinary tract infection: Code(s): N39.0 - Urinary tract infection, site not specified Status: Acute Assessment and Plan: Likely related to recent procedure. Previous urine culture grew out E coli resistant to ciprofloxacin. Continue empiric ceftriaxone, pending urine culture. Once urine cultures reported, can change antibiotics and send the patient home (2) Prostate cancer: Code(s): C61 - Malignant neoplasm of prostate Status: Acute Assessment and Plan: Recent diagnosis in July 2021, soon to start radiation. Patient to follow-up with Dr. Easley on discharge. (3) Hypertension: Code(s): I10 - Essential (primary) hypertension Status: Acute Assessment and Plan: Blood pressures were reviewed and they are stable. Continue antihypertensives and monitor daily. (4) Benign prostatic hyperplasia: Code(s): N40.0 - Benign prostatic hyperplasia without lower urinary tract symptoms Status: Acute Assessment and Plan: Continue tamsulosin. (5) Right distal ureteral calculus: Code(s): N20.1 - Calculus of ureter Status: Acute Assessment and Plan: Status post cystoscopy with right ureteral stent placement. (6) Bladder calculi: Code(s): N21.0 - Calculus in bladder Status: Acute Assessment and Plan: Status post cystoscopy with evacuation of bladder stones. (7) Elevated LFTs: Code(s): R79.89 - Other specified abnormal findings of blood chemistry Status: Acute Assessment and Plan: Mild AST and ALT elevation. Abdominal exam is benign. Continue to monitor for now. Check hepatitis panel for completeness sake. Subjective Date/time seen: 10/09/21 11:15 Feeling okay, Hull in place Exam Narrative: General: Well-developed gentleman sitting up in bed no distress. Nontoxic in appearance. Weight: 111.9 kg. BMI: 33.5. HEENT: Wearing glasses. PERRL, EOMI. Sclerae anicteric. Oral mucosa moist. Neck: Supple. Respiratory: Lungs are clear to auscultation bilaterally. Cardiovascular: Regular rate and rhythm with S1-S2. Gastrointestinal: Abdomen is soft, nontender, and nondistended with positive bowel sounds. Genitourinary: Hull catheter draining dark yellow urine admixed with small blood clots. Skin: Warm and dry. No rash or lesions on limited exam. Extremities: No cyanosis, clubbing, or edema. Radial and pedal pulses intact. Neurological: Alert. Cranial nerves 2-12 are grossly intact. No gross focal deficits to casual conversation. Psychiatric: Pleasant and cooperative with normal mood and affect. Judgment and insight intact. Objective Data Vital Signs Vital Signs: Vital Signs - 24 hr 10/08/21 11:36 10/08/21 16:00 10/08/21 18:01 Temperature 97.9 F 98.7 F 101 F H Pulse Rate 104 H 80 108 H Respiratory Rate 16 18 18 Blood Pressure 159/81 H 148/67 H 135/85 Pulse Oximetry 95 100 97 Oxygen Delivery Room Air Room Air Room Air Oxygen Flow Rate 10/08/21 18:15 10/08/21 18:30 10/08/21 18:46 Temperature Pulse Rate 107 H 104 H 102 H Respiratory Rate 16 14 18 Blood Pressure 150/81 H 131/82 135/80 Pulse Oximetry 93 95 97 Oxygen Delivery Room Air Nasal Cannula Nasal Cannula Oxygen Flow Rate 2 2 10/08/21 21:49 10/08/21 20:00 10/09/21 05:39 Temperature 98.3 F 97.9 F Pulse Rate 103 H 83 Respiratory Rate 18 18 Blood Pressure 121/63 112/62 Pulse Oximetry 97 97 93 Oxygen Delivery Nasal Cannula Oxygen Flow Rate 2 10/09/21 08:34 Temperature Pulse Rate Respiratory Rate Blood Pressure Pulse Oximetry 96 Oxygen Delivery Room Air Oxygen Flow Rate Intake/Output Intake/Output: Intake & Output 10/06/21 10/07/21 10/08/21 10/09/21 23:59 23:59 23:59 23:59 Intake Total 1100 1890 Output Total 40 250 Balance 1060 1640 Meds/Results Medications: Active Medications Generic Name
[2021-10-09] MEDS: LATANOPROST 0.005% OP SOLN 2.5 ML BTL 1 DROP EACH EYE (21:43)
[2021-10-09] MEDS: TAMSULOSIN HCL 0.4 MG CAPSULE PO (21:44)
[2021-10-10] MEDS: SALINE LOCK FLUSH 2 ML IV PUSH (05:53)
[2021-10-10] MEDS: SODIUM CHLORIDE 0.9% IV 1,000 ML 125 ML IV CONT (05:53)
[2021-10-10 06:00] VITALS: BP 121/76; PULSE 94; RESP 16; TEMP 36.9; O2SAT 93
[2021-10-10] MEDS: COLCHICINE 0.6 MG TABLET 1.2 MG PO (06:28)
[2021-10-10] MEDS: COLCHICINE 0.6 MG TABLET PO (07:13)
[2021-10-10] MEDS: FLUTICASONE/SALMETEROL 115-21 MCG INHALER 1 PUFF 2 PUFF INHALATION (07:48)
[2021-10-10 07:50] VITALS: PULSE 87; RESP 16
[2021-10-10 07:51] VITALS: PULSE 87; O2SAT 95
--- NOTE | 2021-10-10 07:55 | WPDUROPN2 ---
Progress Note: A&P Assessment and Plan (1) Prostate cancer: Code(s): C61 - Malignant neoplasm of prostate Status: Acute (2) Urinary tract infection: Code(s): N39.0 - Urinary tract infection, site not specified Status: Acute Assessment and Plan: Urine culture -> resistant e. coli / blood cultures -> neg. thus far. If urine cultures remain neg., would suggest discharge on Septra DS bid x2 weeks. Catheter can be removed prior to discharge. Scheduled for endoscopic ureteral stone extraction next week. Subjective Subjective Date/Time Seen: 10/10/21 07:55 Comfortable, no complaints Review of Systems Cardiovascular: Cardiovascular: Denies chest pain, Denies lightheadedness, Denies palpitations and Denies dyspnea Respiratory: Respiratory: Denies dyspnea Gastrointestinal: Gastrointestinal: Denies diarrhea, Denies nausea and Denies vomiting Genitourinary: Genitourinary: Denies hematuria and Denies dysuria Endocrine: Endocrine: Denies palpitations Exam Const: General: no acute distress Resp: Effort & Inspection: normal respiratory effort GI: Inspection: non-distended GI Palp: No abdominal tenderness and No Guarding due to palpation present (GI) Auscultation: normal bowel sounds Objective Data Vital Signs Vital Signs: Vital Signs - 24 hr 10/09/21 08:34 10/09/21 08:00 10/09/21 14:00 Temperature 97.1 F L Pulse Rate 73 Respiratory Rate 20 Blood Pressure 113/70 Pulse Oximetry 96 100 Oxygen Delivery Room Air Room Air Oxygen Flow Rate 10/09/21 20:05 10/09/21 20:05 10/09/21 21:20 Temperature Pulse Rate 97 97 99 Respiratory Rate 14 Blood Pressure Pulse Oximetry 94 93 Oxygen Delivery Nasal Cannula Nasal Cannula Oxygen Flow Rate 2 1 10/09/21 21:52 10/09/21 20:00 10/09/21 22:15 Temperature 99 F Pulse Rate 78 84 Respiratory Rate 18 Blood Pressure 135/70 Pulse Oximetry 97 97 94 Oxygen Delivery Room Air Room Air Oxygen Flow Rate 10/10/21 06:00 10/10/21 07:50 10/10/21 07:51 Temperature 98.5 F Pulse Rate 94 87 87 Respiratory Rate 16 16 Blood Pressure 121/76 Pulse Oximetry 93 95 Oxygen Delivery Room Air Oxygen Flow Rate Intake/Output Intake/Output: Intake & Output 05/31/22 10/08/21 10/09/21 10/10/21 23:59 23:59 23:59 23:59 Intake Total 1100 6080 1200 Output Total 40 1100 1900 Balance 1060 4980 -700 Meds/Results Medications: Active Medications Generic Name Dose Route Start Last Admin Trade Name Freq PRN Reason Stop Dose Admin Amlodipine Besylate 10 mg 10/09/21 09:00 10/09/21 08:59 Amlodipine Besylate 5 Mg Tablet PO 10 mg DAILY SYDNEE Administration Ceftriaxone Sodium/Dextrose 1 gm in 50 mls @ 100 mls/hr 10/09/21 13:00 10/09/21 13:43 Rocephin 1 Gm/D5w 50 Ml IVPB Infused Q24H SYDNEE Infusion Sodium Chloride 1,000 mls @ 125 mls/hr 10/08/21 14:35 10/10/21 05:53 Normal Saline Iv IV CONT 125 mls/hr .Q8H SYDNEE Administration Latanoprost 1 drop 10/08/21 21:00 10/09/21 21:43 Latanoprost 0.005% Op Soln 2.5 Ml Btl EACH EYE 1 drop HS SYDNEE Administration Miscellaneous Information 0 each 10/08/21 23:55 Tadalafil- Nonformulary. Hold/ Discontinue While Inpatient? XX 11/07/21 23:54 CLARIFY SYDNEE Non-Formulary Medication 5 mg 10/08/21 23:18 Tadalafil PO DAILY PRN Erectile Dysfunction Fluticasone/Salmeterol 2 puff 10/08/21 20:00 10/10/21 07:48 Fluticasone/Salmeterol 115-21 Mcg Inhaler 1 Puff INHALATION 2 puff Q12HRT SYDNEE Administration Sodium Chloride 2 ml 10/08/21 21:15 Saline Lock Flush IV PUSH PRN PRN BEFORE AND AFTER INFUSIONS Sodium Chloride 2 ml 10/08/21 22:00 10/10/21 05:53 Saline Lock Flush IV PUSH 2 ml Q8HR SYDNEE Administration Tamsulosin HCl 0.4 mg 10/08/21 21:00 10/09/21 21:44 Tamsulosin Hcl 0.4 Mg Capsule PO 0.4 mg HS SYDNEE Administration Vitamin D 1,000 units 10/09/21 09:00 10/09
[2021-10-10 08:00] VITALS: PULSE 87; RESP 16; O2SAT 95
[2021-10-10] MEDS: amLODIPine BESYLATE 5 MG TABLET 10 MG PO (09:49)
[2021-10-10] MEDS: CHOLECALCIFEROL 1,000 UNITS TABLET 1000 UNITS PO (09:50)
--- NOTE | 2021-10-10 11:20 | PM.DS ---
DS: Admitting Diagnosis Discharge Date October 10, 2021 Admitting Diagnosis BPH, urinary retention DS: Discharge Diagnosis Discharge Diagnosis (1) Urinary tract infection: Code(s): N39.0 - Urinary tract infection, site not specified Status: Acute Assessment and Plan: Likely related to recent procedure. Cultures noted, S2 for 2 weeks (2) Prostate cancer: Code(s): C61 - Malignant neoplasm of prostate Status: Acute Assessment and Plan: Recent diagnosis in July 2021, soon to start radiation. Patient to follow-up with Dr. Easley on discharge. (3) Hypertension: Code(s): I10 - Essential (primary) hypertension Status: Acute Assessment and Plan: Continue all meds (4) Benign prostatic hyperplasia: Code(s): N40.0 - Benign prostatic hyperplasia without lower urinary tract symptoms Status: Acute Assessment and Plan: Continue home meds, and add finasteride (5) Right distal ureteral calculus: Code(s): N20.1 - Calculus of ureter Status: Acute Assessment and Plan: Status post cystoscopy with right ureteral stent placement. Follow with Urology (6) Bladder calculi: Code(s): N21.0 - Calculus in bladder Status: Acute Assessment and Plan: Follow with Urology and (7) Elevated LFTs: Code(s): R79.89 - Other specified abnormal findings of blood chemistry Status: Acute Assessment and Plan: Mild AST and ALT elevation. Abdominal exam is benign. Continue to monitor for now. DS: Summary Hospital Course Hospital Course: Patient was admitted for UTI, urinary retention. Patient follows with urologist for probable prostate cancer BPH. Patient will be sent home on antibiotics for 2 weeks for UTI and follow his urologist Time Spent with Patient Time attestation: Total time spent providing and/or coordinating discharge services: Exam Narrative: General: Well-developed gentleman sitting up in bed no distress. Nontoxic in appearance. Weight: 111.9 kg. BMI: 33.5. HEENT: Wearing glasses. PERRL, EOMI. Sclerae anicteric. Oral mucosa moist. Neck: Supple. Respiratory: Lungs are clear to auscultation bilaterally. Cardiovascular: Regular rate and rhythm with S1-S2. Gastrointestinal: Abdomen is soft, nontender, and nondistended with positive bowel sounds. Genitourinary: Hull catheter draining dark yellow urine admixed with small blood clots. Skin: Warm and dry. No rash or lesions on limited exam. Extremities: No cyanosis, clubbing, or edema. Radial and pedal pulses intact. Neurological: Alert. Cranial nerves 2-12 are grossly intact. No gross focal deficits to casual conversation. Psychiatric: Pleasant and cooperative with normal mood and affect. Judgment and insight intact. DS: Data Data Completed and Pending Completed studies during hospitalization: Pending at discharge 10/08/21 17:49 Surgical [PTH] Routine Labs on day of discharge: Preliminary micro results at discharge 10/08/21 13:13 Blood Culture - Preliminary Blood 10/08/21 12:44 Blood Culture - Preliminary Blood Discharge Plan Discharge Attending physician on discharge: Juan Magdaleno Discharging Clinician: Juan Magdaleno Patient Disposition: Home, Self-Care Activity: no preference Diet: as tolerated Patient Instructions: Antibiotic Form Stand Alone Forms: General Discharge Information Follow-up/Referrals: Arthur Holly MD [Primary Care Provider] - Discharge Medications: New sulfamethoxazole-trimethoprim [Bactrim] 400-80 mg tablet 1 tablet PO BID 14 Days Qty: 28 0RF tamsulosin 0.4 mg Capsule 0.4 mg PO HS 30 Days Qty: 30 0RF Continued latanoprost 0.005 % drops 1 drp ophthalmic (eye) HS Rx Instructions: both eyes amlodipine 10 mg tablet 10 mg PO DAILY cholecalciferol (vitamin D3) [Vitamin D3] 25 mcg (1,000 unit)
== END 2021-10-10 14:39 | disposition home or self-care (01) | DRG 854 ==
LOC: ANHED 15:08 → ANHSURGERY 15:12 → ANH3MEDSUR 18:50
PROVIDERS: Physician Assistant; Urology; Admitting Provider Hospitalist; Emergency Provider Emergency Medicine; PCP Urology; Visit Provider Chiropractor
PROC: 0T768DZ Dilation of Right Ureter with Intraluminal Device, Via Natural or Artificial Opening Endoscopic (ICD-10-PCS; CPT 52352; principal; 2021-10-08 17:30)
DX: A41.9 Sepsis, unspecified organism (principal); N20.1 Calculus of ureter; N13.6 Pyonephrosis; C61 Malignant neoplasm of prostate; N21.0 Calculus in bladder; B96.20 Unspecified Escherichia coli [E. coli] as the cause of diseases classified elsewhere; N40.1 Benign prostatic hyperplasia with lower urinary tract symptoms; R33.8 Other retention of urine; H40.9 Unspecified glaucoma; I10 Essential (primary) hypertension; R79.89 Other specified abnormal findings of blood chemistry; Z79.899 Other long term (current) drug therapy; Z86.711 Personal history of pulmonary embolism
CPT/HCPCS: 36415; 72192; 74176; 74420; 80048; 80053; 80074; 80076; 81001; 82365; 83605; 83735; 85025; 87040; 87077; 87086; 87186; 88300; 94640; 96361; 96365; 99285; A9270; C1769; C1887; C2617; G0378; J0696; J2270; J2405; J2704; J7030; J7120; Q9966

== ENCOUNTER 2021-10-11 13:03 | Emergency (ER) | payer OTHER, SELFPAY ==
[2021-10-11 13:05] VITALS: BP 171/91; PULSE 129; RESP 14; TEMP 36.6; O2SAT 95
[2021-10-11] MEDS: LIDOCAINE HCL 2% GEL UROJET 10 ML PKG (13:54)
[2021-10-11 14:04] LABS: Mucus Urine Rare /lpf; RBC Urine >75 /hpf (0-2)
[2021-10-11 14:07] LABS: Appearance Urine Slightly Cloudy (Clear); Bilirubin Urine Negative (Negative); Blood Urine 2+ (Negative); Color Urine Yellow (Yellow); Glucose Urine UA Negative (Negative); Ketones Urine Negative (Negative); Leukocyte Esterase Ur Trace LEU/UL (Negative); Nitrate Urine Negative (Negative); Protein Urine Negative (Negative); Urobilinogen Urine 0.2 mg/dL (<2.0)
[2021-10-11 14:08] LABS: Add Urine Microscopic? YES
[2021-10-11 14:11] LABS: Basophils Percent Auto 0.5 % (0.2-1.2); Eosinophils Absolute Auto 0.2 K/mm3 (0-0.3); Eosinophils Percent Auto 2.2 % (0-4.4); Hematocrit 37.8 % (42.0-52.0); Hemoglobin 12.4 g/dL (14.0-18.0); Immature Granulocyte Absolute 0.31 K/mm3 (0.00-0.031); Immature Granulocyte Percent A 4.2 % (0-0.5); Lymphocytes Absolute Auto 0.75 K/mm3 (0.9-3.2); Lymphocytes Percent Auto 10.3 % (18.3-44.2); Mean Corpuscular HGB Conc 32.8 g/dl (32-36); Mean Corpuscular Hemoglobin 30.9 pg (26-34); Mean Corpuscular Volume 94.3 fl (80-100); Mean Platelet Volume 9.2 fl (7.4-10.4); Neutrophils Percent Auto 68.8 % (45.5-73.1); Platelet Count Result 316 k/mm3 (150-375); Red Blood Count 4.01 M/mm3 (4.6-6.20); Red Cell Distribution Width 14.1 % (11.5-14.5); White Blood Count 7.3 K/mm3 (4.5-10.0)
[2021-10-11 14:25] LABS: Anion Gap 3 mmol/L (8-16); Blood Urea Nitrogen 5 mg/dL (9-20); Calcium 9.1 mg/dL (8.4-10.2); Carbon Dioxide 31 mmol/L (22-30); Chloride 106 mmol/L (98-107); Estimated CRCL calculation 87 ml/min; Estimated Glomerular Filt Rate > 60; Glucose 104 mg/dL (65-110); Potassium 3.5 mmol/L (3.4-5.0); Sodium 140 mmol/L (137-145)
[2021-10-11 15:51] VITALS: BP 142/76; PULSE 98; RESP 16; O2SAT 97
--- NOTE | 2021-10-11 15:51 | ED.MALEGU ---
HPI - Male Genitourinary General Chief complaint: Urogenital-Male Stated complaint: urinary retention after stent Time Seen by Provider: 10/11/21 13:28 History of Present Illness HPI Narrative: Patient is a 66-year-old male who presents to the ER with lower abdominal pain. Has only had small episodes of voiding over the last day. Discharged from the hospital yesterday. He did have a Hull catheter was in the hospital but it was removed. He does have a ureteral stent. No fevers or chills or sweats. No nausea or vomiting. Related Data Home Medications Medication Instructions Recorded Confirmed amlodipine 10 mg tablet 10 mg PO DAILY 05/18/20 10/08/21 cholecalciferol (vitamin D3) 25 1,000 unit PO DAILY 05/18/20 10/08/21 mcg (1,000 unit) capsule (Vitamin D3) fluticasone furoate 100 1 inh inhalation DAILY 05/18/20 10/08/21 mcg-vilanterol 25 mcg/dose inhalation powder (Breo Ellipta) latanoprost 0.005 % eye drops 1 drp ophthalmic (eye) HS 05/18/20 10/08/21 tadalafil 5 mg tablet 5 mg PO DAILY PRN Erectile 05/18/20 10/08/21 Dysfunction Allergies Allergy/AdvReac Type Severity Reaction Status Date / Time No Known Allergies Allergy Unknown Unverified 10/11/21 13:21 Review of Systems Review of Systems: All systems reviewed & are unremarkable except as noted in HPI and below Constitutional: Constitutional: Denies chills, Denies fatigue and Denies fever(s) Gastrointestinal: Gastrointestinal: Reports abdominal pain, Denies nausea and Denies vomiting Genitourinary: Genitourinary: Denies hematuria, Reports oliguria and Denies dysuria Neurologic: Denies focal weakness and Denies numbness [facility] Past Medical History Medical History (Updated 10/11/21 @ 16:29 by Raj Weeks MD) Asthma Benign prostatic hyperplasia E coli bacteremia (07/2021) Post prostate biopsy. Glaucoma Hypertension Pneumonia Prostate cancer Pulmonary embolism (05/2020) Surgical History Surgical History (Updated 10/08/21 @ 23:56 by Stacie Morejon PA-C) History of prostate biopsy (07/29/21) Status post excision of lipoma Left thigh. Family History Family History Mother Pulmonary embolism Social History Social History (Updated 10/09/21 @ 00:00 by Stacie Morejon PA-C) Social History: Surrogate decision maker: Carly Mcguire, spouse. Code status: Full code. Smoking status: Never smoker Alcohol intake: current Drinks per week: 2 Substance use: never Substance use type: does not use Additional living arrangements comments: The patient lives with his in [place]. 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 Spiritual care concerns: No Exam Narrative: GENERAL: Uncomfortable-appearing, well-nourished, and in no acute distress. HEAD: Normocephalic, atraumatic. ABDOMEN: Soft, suprapubic tenderness,nondistended. EXTREMITIES: Normal range of motion. No edema. SKIN: Warm, dry, no rash. NEURO: Alert and oriented x3. PSYCH: Normal mood and affect. Course Course Emergency Course: Hull exchanged. Discussed with urology. Patient should keep and follow-up with urology. Vital Signs Vital signs: Vital Signs Temperature 97.8 F 10/11/21 13:05 Pulse Rate 129 H 10/11/21 13:05 Respiratory Rate 14 10/11/21 13:05 Blood Pressure 171/91 H 10/11/21 13:05 Pulse Oximetry 95 10/11/21 13:05 Oxygen Delivery Room Air 10/11/21 13:05 Temperature 97.8 F 10/11/21 13:05 Pulse Rate 98 10/11/21 15:51 Respiratory Rate 16 10/11/21 15:51 Blood Pressure 142/76 H 10/11/21 15:51 Pulse Oximetry 97 10/11/21 15:51 Oxygen Delivery Room Air 10/11/21 13:05 MDM - Male Genitourinary Lab
== END 2021-10-11 16:32 | disposition home or self-care (01) ==
PROVIDERS: Emergency Provider Emergency Medicine
DX: N40.1 Benign prostatic hyperplasia with lower urinary tract symptoms (principal); R33.8 Other retention of urine; J45.909 Unspecified asthma, uncomplicated; H40.9 Unspecified glaucoma; I10 Essential (primary) hypertension; Z85.46 Personal history of malignant neoplasm of prostate; Z87.01 Personal history of pneumonia (recurrent); Z86.711 Personal history of pulmonary embolism
CPT/HCPCS: 36415; 51702; 80048; 81001; 85025; 99283

== ENCOUNTER 2021-10-15 01:22 | Day surgery (SDC) | payer OTHER, SELFPAY ==
--- NOTE | 2021-10-13 12:29 | PC.NURSE ---
Report to the Outpatient Waiting Room, entrance under the green pavilion located off [facility], at time on date . OR Time: . - You and your visitor will be asked a series of questions to screen for COVID 19 for your protection. - Only one visitor is allowed at this time. - The patient visitor is requested to leave or wait in car when not with patient. - A mask is required within the hospital. Patients may have clear liquids (water, carbonated beverages, clear teas, apple juice) until 3 hours prior to surgery with a maximum of 20 ounces. - No food from midnight until time of surgery - Infants may have breast milk until 4 hours before surgery, infant formula 6 hours prior to surgery. - Children will be allowed to drink immediately following surgery. If applicable, please bring a bottle or sippy cup to assist with drinking. Juice, water, soda, and popsicles are readily available. For infants on formula, please bring formula the day of surgery. Pacifiers are allowed. Take the following medications with a SIP of water the morning of surgery: _AMLODIPINE,BACTRIM Medications to discontinue per physician ___ALL VITAMINS AND SUPPLEMENTS 3 DAYS PRE OP Date to take last dose__10/13/21 Please no make-up, nail guyanese, hairspray, perfume, deodorant, or body powder the day of surgery. No jewelry (including any body piercings) or valuables the day of surgery, leave them at home. Please take a shower or bath the night before, or the morning of, surgery with an antibacterial soap. Wear comfortable, loose fitting clothing. Children are encouraged to wear pajamas. - Jewelry must be removed prior to entering the operating room. Rings and piercings that are not removed may be cut off. - The hospital will not accept responsibility for valuables. - Please leave all valuables, including medications, at home the day of surgery. If you are going home after surgery, a licensed m48/m60 tank driver must drive you home. - NO public transportation without another adult. - We recommend that an adult stay with you for 24 hours following discharge. - We also recommend that you do not drive, make important decision, drink alcoholic beverages, or take any drugs that were not prescribed by your health care provider for at least 24 hours after your discharge time. For Pediatric surgeries, we recommend two adults accompany the child home (only one inside the building at this time). Follow any additional instructions given to you from your surgeon. If you or anyone in your household have experienced Covid symptoms in the past week, please notify your surgeon or the nurse liaison at the phone number below for possible testing. Telephone instructions given to __PATIENT and asked if any additional questions and then verbalized understanding. Patient advised to call surgeon office or pre surgery nurse liaison [phone] if any additional questions.
[2021-10-13 12:37] VITALS: BMI 32.1
--- NOTE | 2021-10-14 13:47 | WPDANESEPPF ---
Anes - Initial Pre Proc Eval Procedure: Operation Date: 10/15/21 14:00 Proposed Procedures p Cystoscopy, Right Ureteroscopy, Right Retrograde Pyelogram, Right Stone Extraction, Cystolithalopaxy, Possible Right Stent Placement, Possible Holmium Laser Procedure - Eula Garcia MD Date/Time: 10/14/21 13:47 Surgeon: Eula Garcia MD Pre Op Diagnosis: bladder stone Patient Data Age: 66 Gender: M Height: 1.83 m Weight: 107.5 kg Allergies Allergy/AdvReac Type Severity Reaction Status Date / Time No Known Allergies Allergy Unknown Unverified 10/13/21 12:18 Home Medications Medication Instructions Recorded Confirmed Type amlodipine 10 mg tablet 10 mg PO DAILY 05/18/20 10/13/21 History cholecalciferol (vitamin D3) 25 1,000 unit PO DAILY 05/18/20 10/13/21 History mcg (1,000 unit) capsule (Vitamin D3) fluticasone furoate 100 1 inh inhalation HS 05/18/20 10/13/21 History mcg-vilanterol 25 mcg/dose inhalation powder (Breo Ellipta) latanoprost 0.005 % eye drops 1 drp ophthalmic (eye) HS 05/18/20 10/13/21 History tadalafil 5 mg tablet 5 mg PO DAILY PRN Erectile 05/18/20 10/13/21 History Dysfunction sulfamethoxazole 400 1 tablet PO BID 14 days #28 tabs 10/10/21 10/13/21 Rx mg-trimethoprim 80 mg tablet (Bactrim) tamsulosin 0.4 mg capsule 0.4 mg PO HS 30 days #30 caps 10/10/21 10/13/21 Rx colchicine 0.6 mg tablet 0.6 tablet PO DAILY GOUT 10/13/21 10/13/21 History Patient hx anesthesia problems: none Family hx anesthesia problems: none Results Review: All pre-operative results and documents have been reviewed as part of the pre-operative evaluation. [facility] Past Medical History Medical History (Updated 10/14/21 @ 13:48 by Blake Nogueira MD) Asthma Benign prostatic hyperplasia Bladder calculi E coli bacteremia (07/2021) Post prostate biopsy. Glaucoma Hypertension Obesity Pneumonia Prostate cancer Pulmonary embolism (05/2020) Right distal ureteral calculus Surgical History Surgical History (Updated 10/08/21 @ 23:56 by Stacie Morejon PA-C) History of prostate biopsy (07/29/21) Status post excision of lipoma Left thigh. Family History Family History Mother Pulmonary embolism Social History Social History (Updated 10/09/21 @ 00:00 by Stacie Morejon PA-C) Social History: Surrogate decision maker: Carly Mcguire, spouse. Code status: Full code. Smoking status: Never smoker Alcohol intake: current Drinks per week: 2 Substance use: never Substance use type: does not use Living arrangements: with family Additional living arrangements comments: The patient lives with his in [place]. 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 Spiritual care concerns: No Anes - Eval Final PreProcedure Day of Procedure 10/14/21 13:47 Patient weight: obese Heart: regular rate and rhythm Lungs: clear to auscultation Airway: Mallampati scale class II Neurological: alert and oriented Last oral intake: >/= 8 hours ASA classification: III Emergent: no Anesthetic plan: proceed Anesthesia type and monitoring: general LMA and standard monitoring Results Review: All pre-operative results and documents have been reviewed as part of the pre-operative evaluation. Informed Consent: The patient's anesthetic plan and its attendant risks and benefits were discussed with the patient/family/POA. Questions were solicited and answers provided to the satisfaction of the patient/family/POA.
[2021-10-15] VITALS (9 sets, daily range): BP systolic 126–160; BP diastolic 76–95; PULSE 73–101; RESP 12–16; TEMP 36.2–36.8; O2SAT 98–100
--- NOTE | ~2021-10-15 | XR_ITS ---
EXAMINATION: XR retrograde pyelo w/stent RT DATE: 10/15/2021 15:23 INDICATION: Right internal ureteral stent placement TECHNIQUE: Fluoroscopic images from a right internal ureteral stent placement are submitted for cece salter 27 seconds of fluoroscopy time. FINDINGS: There is a right double-J internal ureteral stent projecting in expected position, with proximal [place] loop at the level of the renal pelvis and distal loop in the pelvis within the bladder lumen. IMPRESSION: 1. Right internal ureteral stent placement. Please refer to real-time procedural findings for mela ls. Reviewed, dictated and finalized at location B. IMPRESSION: 1. Right internal ureteral stent placement. Please refer to real-time procedu ral findings for details.
--- NOTE | 2021-10-15 12:16 | ECG_ITS ---
Measurements Intervals [place] Rate: 107 P: 55 DE: 191 QRS: -24 QRSD: 86 T: 59 QT: 335 QTc: 449 Interpretive Statements SINUS TACHYCARDIA POSSIBLE OLD INFERIOR MYOCARDIAL INFARCTION COMPARED TO ECG 05/17/2020 19:22:21 MYOCARDIAL INFARCT FINDING NOW PRESENT Electronically Signed On 10-15-2021 22:14:43 CDT by Meg Fairchild M.D.
[2021-10-15] MEDS: ACETAMINOPHEN 500 MG TABLET 1000 MG PO (13:30)
--- NOTE | 2021-10-15 13:41 | PM.IMHP ---
H&P: HPI History of Present Illness Date/Time: 10/15/21 13:41 Chief Complaint: Right ureteral stone, bladder stones, urinary retention, prostate cancer, BPH,, UTI [facility] Past Medical History Medical History (Updated 10/14/21 @ 13:48 by Blake Nogueira MD) Asthma Benign prostatic hyperplasia Bladder calculi E coli bacteremia (07/2021) Post prostate biopsy. Glaucoma Hypertension Obesity Pneumonia Prostate cancer Pulmonary embolism (05/2020) Right distal ureteral calculus Surgical History Surgical History (Updated 10/08/21 @ 23:56 by Stacie Morejon PA-C) History of prostate biopsy (07/29/21) Status post excision of lipoma Left thigh. Family History Family History Mother Pulmonary embolism Social History Social History (Updated 10/09/21 @ 00:00 by Stacie Morejon PA-C) Social History: Surrogate decision maker: Carly Mcguire, spouse. Code status: Full code. Smoking status: Never smoker Alcohol intake: current Drinks per week: 2 Substance use: never Substance use type: does not use Living arrangements: with family Additional living arrangements comments: The patient lives with his in [place]. 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 Spiritual care concerns: No Meds Home Medications and Allergies Home Medications Medication Instructions Recorded Confirmed Type amlodipine 10 mg tablet 10 mg PO DAILY 05/18/20 10/15/21 History cholecalciferol (vitamin D3) 25 1,000 unit PO DAILY 05/18/20 10/15/21 History mcg (1,000 unit) capsule (Vitamin D3) fluticasone furoate 100 1 inh inhalation HS 05/18/20 10/15/21 History mcg-vilanterol 25 mcg/dose inhalation powder (Breo Ellipta) latanoprost 0.005 % eye drops 1 drp ophthalmic (eye) HS 05/18/20 10/15/21 History tadalafil 5 mg tablet 5 mg PO DAILY PRN Erectile 05/18/20 10/15/21 History Dysfunction sulfamethoxazole 400 1 tablet PO BID 14 days #28 tabs 10/10/21 10/15/21 Rx mg-trimethoprim 80 mg tablet (Bactrim) tamsulosin 0.4 mg capsule 0.4 mg PO HS 30 days #30 caps 10/10/21 10/15/21 Rx colchicine 0.6 mg tablet 0.6 tablet PO DAILY GOUT 10/13/21 10/15/21 History Allergies Allergy/AdvReac Type Severity Reaction Status Date / Time No Known Allergies Allergy Unknown Unverified 10/13/21 12:18 Exam Narrative: Patient is awake alert no acute distress. His breathing is labored. Abdomen soft nontender nondistended. He has a Hull catheter in place Assessment and Plan Assessment and plan (1) Right distal ureteral calculus: Code(s): N20.1 - Calculus of ureter Status: Acute (2) Bladder calculi: Code(s): N21.0 - Calculus in bladder Status: Acute (3) Prostate cancer: Code(s): C61 - Malignant neoplasm of prostate Status: Acute (4) Benign prostatic hyperplasia: Code(s): N40.0 - Benign prostatic hyperplasia without lower urinary tract symptoms Status: Acute (5) Acute UTI: Code(s): N39.0 - Urinary tract infection, site not specified Status: Acute Plan Patient to be taken the operating room today for cystoscopy, right ureteroscopy, laser lithotripsy, stone extraction, retrograde pyelogram, bladder stone evacuation, laser litholapaxy, Hull catheter exchange. The risks benefits alternatives discussed patient agrees to proceed. Will plan deferred management of his prostate cancer and BPH.
--- NOTE | 2021-10-15 13:43 | WPDHPUPDATE1 ---
History and Physical Update Update Date/Time: 10/15/21 13:43 History and Physical has been reviewed, including an updated exam of the patient. There are NO changes in the patient's condition. Risks, benefits, and alternatives have been discussed and questions answered. Patient agrees to proceed with procedure.
[2021-10-15] MEDS: LACTATED RINGERS 1,000 ML 30 ML IV CONT ×2 (14:03→15:23)
--- NOTE | 2021-10-15 15:20 | W.PM.PROC2 ---
Procedure Note - Detailed Date of Procedure 10/15/21 Pre-op Diagnosis bladder stone, right ureteral stone, BPH, prostate cancer Post-op Diagnosis Same Procedure Performed Cystoscopy, right ureteroscopy, right retrograde pyelogram, right ureteral stent insertion. Bladder stone laser litholapaxy, stone evacuation Hull catheter placement Surgeon Eula Garcia MD Description of Procedure Informed consents obtained. Patient is here room. He was given preoperative IV antibiotics with ceftriaxone and he has been receiving oral antibiotics at home for his known and treated urinary tract infection. The patient was induced anesthesia he was prepped and draped in normal sterile fashion in the dorsal lithotomy position. We inserted a 22 F cystoscope through the urethra into the bladder. The patient did have severe bilobar prostatic hyperplasia with a moderate-sized median lobe. Upon entering the bladder multiple diverticula were noted, there were multiple bladder stones present. The right ureteral orifice was identified with ureteral stent, the stent was grasped pulled to the urethral meatus. Then placed a wire. Then dilated with 810 coaxial dilator and then advanced a semi rigid ureteral scope into the distal 2/3 of the ureter. No stone was seen. A retrograde pyelogram was performed that showed no filling defects. As the stone was present in the distal ureter at the time of stent insertion and had likely passed into the bladder and collected with the other multiple bladder stones. At this point another retrograde pyelogram was performed, the wire was removed and contrast easily left the kidney and drained into the bladder, we therefore felt that ureteral stent reinsert Thatch was not necessary. At this point we then replaced the 22 F rigid cystoscope, and using the 1000 w laser fragmented the largest stones into smaller pieces. We then evacuated all stone fragments from the bladder. We were able to identify stones at the beginning of the case with fluoroscopy and upon stone evaluation there were no residual stones seen on x-ray. We carefully inspected the bladder and no residual stones were identified. We then placed a 20 F coude catheter and the bladder was empty. Patient was awakened taken recovery room stable condition. He will be discharged home with Hull catheter implant catheter removal in 5 days. Complications No immediate complications Condition Stable Disposition PACU
== END 2021-10-15 17:05 | disposition home or self-care (01) ==
PROVIDERS: Visit Provider Urology
PROC: (CPT 52352; principal; 2021-10-15 14:00)
DX: N21.0 Calculus in bladder (principal); N20.1 Calculus of ureter; C61 Malignant neoplasm of prostate; N39.0 Urinary tract infection, site not specified; N40.0 Benign prostatic hyperplasia without lower urinary tract symptoms; R33.9 Retention of urine, unspecified; I10 Essential (primary) hypertension; H40.9 Unspecified glaucoma; J45.909 Unspecified asthma, uncomplicated; Z86.711 Personal history of pulmonary embolism; Z79.51 Long term (current) use of inhaled steroids; E66.9 Obesity, unspecified; Z68.31 Body mass index [BMI] 31.0-31.9, adult
CPT/HCPCS: 52332; 52317; 74420; 82365; 88300; 93005; A9270; C1769; J0690; J0696; J1100; J2405; J2704; J3010; J7120; Q9966

== ENCOUNTER 2021-10-19 13:03 | Emergency (ER) | payer OTHER, SELFPAY ==
[2021-10-19 13:07] VITALS: BP 176/99; PULSE 102; RESP 18; TEMP 36.6; O2SAT 100
--- NOTE | 2021-10-19 13:11 | PC.NURSE ---
Pt states he has noted large amount of clots in his urine since surgery.
--- NOTE | 2021-10-19 13:16 | PC.NURSE ---
catheter irrigated with approx 30 ml NS and baloon deflated and advanced. Noted to have spontaneous return of urine, measured 475 ml
--- NOTE | 2021-10-19 13:18 | ED.GENADULT ---
HPI - General Adult General Chief complaint: Urogenital-Male Stated complaint: Cath Not Draining, Post Op Issues Time Seen by Provider: 10/19/21 13:04 Source: RN notes reviewed History of Present Illness HPI narrative: Patient presents emergency room from home for urinary retention. Patient states that he just had surgery by Dr. Garcia 5 days ago states he had a bladder stone removed at that time he states he has had an indwelling Hull catheter since that time and noticed this morning that he was having decreased drainage of the Hull catheter states that with testes been having a feeling of fullness in his lower abdomen denies any fevers or chills nausea vomiting diarrhea or any other symptoms states he is on antibiotics which she believes is Keflex since his surgery which she has been taking he states he was having normal drainage up until this morning Related Data Home Medications Medication Instructions Recorded Confirmed amlodipine 10 mg tablet 10 mg PO DAILY 05/18/20 10/15/21 cholecalciferol (vitamin D3) 25 1,000 unit PO DAILY 05/18/20 10/15/21 mcg (1,000 unit) capsule (Vitamin D3) fluticasone furoate 100 1 inh inhalation HS 05/18/20 10/15/21 mcg-vilanterol 25 mcg/dose inhalation powder (Breo Ellipta) latanoprost 0.005 % eye drops 1 drp ophthalmic (eye) HS 05/18/20 10/15/21 tadalafil 5 mg tablet 5 mg PO DAILY PRN Erectile 05/18/20 10/15/21 Dysfunction colchicine 0.6 mg tablet 0.6 tablet PO DAILY GOUT 10/13/21 10/15/21 Allergies Allergy/AdvReac Type Severity Reaction Status Date / Time No Known Allergies Allergy Unknown Unverified 10/13/21 12:18 Review of Systems Review of Systems: Gen.: Denies fevers or chills Respiratory: Denies shortness of breath or cough CV: Denies chest pain or palpitations GI: Reports of lower abdominal distention denies nausea, emesis or diarrhea see HPI Musculoskeletal: Denies back pain or muscle pain Neuro: Denies numbness, tingling, weakness or focal weakness Skin: Denies rash Except as documented, all other systems reviewed and negative PMFSH Past Medical History Medical History Asthma Benign prostatic hyperplasia Bladder calculi E coli bacteremia (07/2021) Post prostate biopsy. Glaucoma Hypertension Obesity Pneumonia Prostate cancer Pulmonary embolism (05/2020) Right distal ureteral calculus Surgical History Surgical History (Updated 10/08/21 @ 23:56 by Stacie Morejon PA-C) History of prostate biopsy (07/29/21) Status post excision of lipoma Left thigh. Family History Family History Mother Pulmonary embolism Social History Social History Social History: Surrogate decision maker: Carly Mcguire, spouse. Code status: Full code. Smoking status: Never smoker Alcohol intake: current Drinks per week: 2 Substance use: never Substance use type: does not use Additional living arrangements comments: The patient lives with his in [place]. 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 Spiritual care concerns: No Exam Narrative: APPEARANCE: No acute distress, nontoxic, resting in bed EYES: EOMI HEENT: Normocephalic, atraumatic, OMM RESPIRATORY: No respiratory distress Clear to auscultation bilaterally with no rhonchi wheezing or rales. CARDIOVASCULAR: Regular rate and rhythm without murmurs rubs or gallops. ABDOMINAL: Soft, nontender, nondistended, no rebound or guarding : Hull catheter present and draining urine MUSCULOSKELETAl: Moves all extremities. No clubbing, cyanosis or edema. NEURO: Awake and alert. Following comm
[2021-10-19 13:32] LABS: Basophils Percent Auto 0.6 % (0.2-1.2); Eosinophils Absolute Auto 0.2 K/mm3 (0-0.3); Eosinophils Percent Auto 2.7 % (0-4.4); Hematocrit 41.1 % (42.0-52.0); Hemoglobin 13.3 g/dL (14.0-18.0); Immature Granulocyte Absolute 0.06 K/mm3 (0.00-0.031); Immature Granulocyte Percent A 0.8 % (0-0.5); Lymphocytes Absolute Auto 0.91 K/mm3 (0.9-3.2); Lymphocytes Percent Auto 12.8 % (18.3-44.2); Mean Corpuscular HGB Conc 32.4 g/dl (32-36); Mean Corpuscular Hemoglobin 30.6 pg (26-34); Mean Corpuscular Volume 94.5 fl (80-100); Mean Platelet Volume 8.6 fl (7.4-10.4); Monocytes Absolute Auto 0.6 K/mm3 (0.1-0.6); Neutrophils Absolute Auto 5.3 K/mm3 (1.3-6.7); Neutrophils Percent Auto 74.1 % (45.5-73.1); Platelet Count Result 391 k/mm3 (150-375); Red Blood Count 4.35 M/mm3 (4.6-6.20); Red Cell Distribution Width 14.4 % (11.5-14.5); White Blood Count 7.1 K/mm3 (4.5-10.0)
[2021-10-19 13:47] LABS: Alanine Aminotransferase 29 U/L (6-50); Albumin Level 3.8 g/dL (3.5-5.1); Alkaline Phosphatase 81 U/L (38-126); Anion Gap 5 mmol/L (8-16); Aspartate Amino Transferase 27 U/L (17-59); Bilirubin,Total 0.5 mg/dL (0.2-1.3); Blood Urea Nitrogen 8 mg/dL (9-20); Calcium 9.4 mg/dL (8.4-10.2); Carbon Dioxide 28 mmol/L (22-30); Chloride 104 mmol/L (98-107); Estimated CRCL calculation 73 ml/min; Estimated Glomerular Filt Rate > 60; Glucose 110 mg/dL (65-110); Potassium 3.9 mmol/L (3.4-5.0); Sodium 137 mmol/L (137-145)
[2021-10-19 14:19] LABS: Appearance Urine Cloudy (Clear); Bilirubin Urine Negative (Negative); Blood Urine 3+ (Negative); Glucose Urine UA Negative (Negative); Ketones Urine Negative (Negative); Leukocyte Esterase Ur Trace LEU/UL (Negative); Nitrate Urine Negative (Negative); Protein Urine 1+ mg/dL (Negative); Specific Grav Ur 1.015 (1.001-1.035); Urobilinogen Urine 0.2 mg/dL (<2.0); pH Urine 6.5 (5.0-9.0)
[2021-10-19 14:35] LABS: Add Urine Microscopic? YES; Bacteria Urine Trace /hpf; Color Urine Light Red (Yellow); Mucus Urine Rare /lpf; RBC Urine >75 /hpf (0-2)
== END 2021-10-19 15:37 | disposition home or self-care (01) ==
PROVIDERS: Emergency Provider Emergency Medicine
DX: T83.098A Other mechanical complication of other urinary catheter, initial encounter (principal); N40.1 Benign prostatic hyperplasia with lower urinary tract symptoms; R33.8 Other retention of urine; Z98.890 Other specified postprocedural states; I10 Essential (primary) hypertension; J45.909 Unspecified asthma, uncomplicated; H40.9 Unspecified glaucoma; Z87.442 Personal history of urinary calculi; Z87.01 Personal history of pneumonia (recurrent); Z86.711 Personal history of pulmonary embolism; Z85.46 Personal history of malignant neoplasm of prostate; E66.9 Obesity, unspecified; Z68.32 Body mass index [BMI] 32.0-32.9, adult
CPT/HCPCS: 36415; 80053; 81001; 85025; 87086; 99283

== ENCOUNTER 2021-10-27 09:02 | Outpatient (CLI) | payer OTHER, SELFPAY ==
--- NOTE | ~2021-10-27 | NM_ITS ---
EXAMINATION: NM bone scan whole body DATE: 10/27/2021 15:02 INDICATION: Malignant neoplasm of prostate. TECHNIQUE: 26.4 mCi Tc-99m HDP was administered intravenously. Delayed whole-body scintigrams were o btained. COMPARISON: CT abdomen and pelvis 10/08/2021 FINDINGS: There is joint-centered increased activity in the sternoclavicular joints, shoulders, and k nees, likely osteoarthritis. There is increased activity in the spine correlating with spondylosis by CT. IMPRESSION: 1. No evidence of metastatic disease. Reviewed, dictated and finalized at location A.
== END 2021-10-27 09:03 | disposition home or self-care (01) ==
LOC: ANHIMG 09:08
PROVIDERS: Visit Provider Radiology Radiation Oncology
DX: C61 Malignant neoplasm of prostate (principal)
CPT/HCPCS: 78306; A9561

== ENCOUNTER 2021-11-18 13:43 | Outpatient (CLI) | payer OTHER, SELFPAY ==
--- NOTE | ~2021-11-18 | XR_ITS ---
XR abdomen/kub 1V 11/18/2021 13:58 INDICATION: Right ureteral stone follow-up TECHNIQUE: KUB COMPARISON: CT dated 10/08/2021 FINDINGS: Bowel gas pattern is normal. There is no evidence of free air, mass, organomegaly, ascites or obstruction. There is a calcification in the right pelvis, suspicious for distal ureteral stone. There are multiple right pelvic calcifications, compatible with bladder stones. There is moderate lum bar spondylosis. The bones appear intact. There is right basilar atelectasis. IMPRESSION: 1: Possible distal right ureteral stone near the location previously seen on CT dated 10/08/2021 2: Bladder stones.. Reviewed, dictated and finalized at location A.
== END 2021-11-18 13:44 | disposition home or self-care (01) ==
PROVIDERS: Visit Provider Nurse Practitioner Adult Health
DX: N20.1 Calculus of ureter (principal); N21.0 Calculus in bladder
CPT/HCPCS: 74018

== ENCOUNTER 2022-03-16 15:50 | Emergency (ER) | payer OTHER, SELFPAY ==
[2022-03-16 15:57] VITALS: BP 153/98; RESP 18; TEMP 36.7; O2SAT 98
--- NOTE | 2022-03-16 17:38 | ED.MALEGU ---
HPI - Male Genitourinary General Chief complaint: Urogenital-Male Stated complaint: urinary retention Time Seen by Provider: 03/16/22 15:58 Source: patient and family Mode of arrival: ambulatory Limitations: no limitations History of Present Illness HPI Narrative: 66-year-old with a history of prostate CA s/p 45 radiation treatments, urinary retention here with complaints of unable to urinate since this morning. Patient states that recently had Hull catheter removed and now is unable to urinate. Complains of lower abdominal discomfort. He denies any fever or chills. He endorses Dr. Holly and Dr. Easley as his urologist. Related Data Home Medications Medication Instructions Recorded Confirmed amlodipine 10 mg tablet 10 mg PO DAILY 05/18/20 10/15/21 cholecalciferol (vitamin D3) 25 1,000 unit PO DAILY 05/18/20 10/15/21 mcg (1,000 unit) capsule (Vitamin D3) fluticasone furoate 100 1 inh inhalation HS 05/18/20 10/15/21 mcg-vilanterol 25 mcg/dose inhalation powder (Breo Ellipta) latanoprost 0.005 % eye drops 1 drp ophthalmic (eye) HS 05/18/20 10/15/21 tadalafil 5 mg tablet 5 mg PO DAILY PRN Erectile 05/18/20 10/15/21 Dysfunction colchicine 0.6 mg tablet 0.6 tablet PO DAILY GOUT 10/13/21 10/15/21 Allergies Allergy/AdvReac Type Severity Reaction Status Date / Time No Known Allergies Allergy Unknown Unverified 10/13/21 12:18 Review of Systems Review of Systems: All systems reviewed & are unremarkable except as noted in HPI and below Constitutional: Constitutional: Reports no additional constitutional complaints Eyes: Eyes: Reports no additional eye complaints ENT: Reports system reviewed and no additional complaints, except as documented Cardiovascular: Cardiovascular: Reports no additional cardiovascular complaints Respiratory: Respiratory: Reports no additional respiratory complaints Gastrointestinal: Gastrointestinal: Reports as per HPI Genitourinary: Genitourinary: Reports as per HPI Musculoskeletal: Musculoskeletal: Reports no additional musculoskeletal complaints Neurologic: Reports system reviewed and no additional complaints, except as documented Psychiatric: Psychiatric: Reports no additional psychiatric complaints Endocrine: Endocrine: Reports no additional endocrine complaints PMFSH Past Medical History Medical History Asthma Benign prostatic hyperplasia Bladder calculi E coli bacteremia (07/2021) Post prostate biopsy. Glaucoma Hypertension Obesity Pneumonia Prostate cancer Pulmonary embolism (05/2020) Right distal ureteral calculus Surgical History Surgical History (Updated 10/08/21 @ 23:56 by Stacie Morejon PA-C) History of prostate biopsy (07/29/21) Status post excision of lipoma Left thigh. Family History Family History Mother Pulmonary embolism Social History Social History Social History: Surrogate decision maker: Carly Mcguire, spouse. Code status: Full code. Smoking status: Never smoker Alcohol intake: current Drinks per week: 2 Substance use: never Substance use type: does not use Additional living arrangements comments: The patient lives with his in [place]. 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 Spiritual care concerns: No Exam Narrative: GENERAL: Well-appearing, well-nourished, and in no acute distress. HEAD: Normocephalic, atraumatic. EYES: PERRLA and EOMI NECK: Supple. CHEST: Clear to auscultation. No respiratory distress. HEART: Regular rate and rhythm. No murmur heard. Normal peripheral pulses. ABDOM
--- NOTE | 2022-03-16 18:43 | PC.NURSE ---
Hull placed 16fr patient tolerated well. 1000oc clear urine emptied from bag. Hull draining.
== END 2022-03-16 19:10 | disposition home or self-care (01) ==
PROVIDERS: Emergency Provider Family Medicine
DX: N40.1 Benign prostatic hyperplasia with lower urinary tract symptoms (principal); R33.8 Other retention of urine; C61 Malignant neoplasm of prostate; I10 Essential (primary) hypertension; J45.909 Unspecified asthma, uncomplicated; H40.9 Unspecified glaucoma; E66.9 Obesity, unspecified; Z87.01 Personal history of pneumonia (recurrent); Z86.711 Personal history of pulmonary embolism
CPT/HCPCS: 51702; 99283

== ENCOUNTER 2022-05-25 19:19 | Emergency (ER) | payer OTHER, SELFPAY ==
[2022-05-25 19:20] VITALS: BP 139/92; PULSE 115; RESP 18; TEMP 36.5; O2SAT 100
--- NOTE | 2022-05-25 22:34 | PC.NURSE ---
Patient left to ER before being seen by a provider. Up to triage desk to communicate to this RN that he was feeling better and would call his Urologist in the AM. Patient encouraged to stay but he declines. Aplogized for wait times. Patient encouraged to return to the ED with any worsening sx.
== END 2022-05-25 22:34 | disposition left against medical advice (07) ==
DX: R10.9 Unspecified abdominal pain (principal)
CPT/HCPCS: 99199

== ENCOUNTER → 2022-08-07 10:21 | Outpatient (CLI) | payer OTHER, SELFPAY ==
--- NOTE | ~2022-08-07 | XR_ITS ---
XR abdomen/kub 1V DATE: 08/07/2022 11:00 INDICATION: Bladder stones TECHNIQUE: 2 AP views COMPARISON: None FINDINGS: Surgical clips overlie the prostate bed. There is a prominent amount of fecal material with in the colon. No bowel obstruction is evident. The psoas shadows appear intact. No visceromegaly is e vident. Multilevel degenerative disc disease, particularly prominent at L4-5 and L5-S1. IMPRESSION: Prominent of fecal material in the colon Reviewed, dictated and finalized at [facility]. Reviewed, dictated and finalized at [facility].
--- NOTE | ~2022-08-07 | US_ITS ---
US retroperitoneal comp DATE: 08/07/2022 11:00 INDICATION: Bladder stones TECHNIQUE: Real-time imaging of kidneys and urinary bladder COMPARISON: 10/08/2021 CT abdomen pelvis FINDINGS: Bilateral renal cysts are noted, the largest on the right measuring approximately 3.2 cm ma ximal dimension, the largest on the left approximately 4.8 cm. The right kidney measures approximately 10.9 cm length, left kidney 11.6 cm. No hydronephrosis of either kidney is evident. There is an approximately 2.6 x 3 x 2.2 cm soft tissue density at the base of the urinary bladder. Ur othelial malignancy, prostate neoplasm and prostate hypertrophy are consistent differential diagnosti c considerations. IMPRESSION: Soft tissue projection into the base of the urinary bladder, measuring up to 3 cm dimensi on; diffusion diagnosis includes urothelial malignancy, prostate hypertrophy, prostate malignancy. Bilateral renal cysts Reviewed, dictated and finalized at [facility]. Reviewed, dictated and finalized at location [facility]. IMPRESSION: Soft tissue projection into the base of the urinary bladder, measur ing up to 3 cm dimension; diffusion diagnosis includes urothelial malignancy, p rostate hypertrophy, prostate malignancy. Bilateral renal cysts
== END ==
PROVIDERS: Visit Provider Nurse Practitioner Adult Health
DX: N21.0 Calculus in bladder (principal); N28.1 Cyst of kidney, acquired
CPT/HCPCS: 74018; 76770

== ENCOUNTER 2023-04-22 09:40 | Emergency (ER) | payer OTHER, SELFPAY ==
--- NOTE | ~2023-04-22 | XR_ITS ---
EXAMINATION: XR chest 2V DATE: 04/22/2023 10:33 INDICATION: Cough TECHNIQUE: PA and lateral views of the chest are obtained. COMPARISON: 05/27/2020 FINDINGS: There are minimal airspace opacities of the left lung base. No pleural effusion or pneumoth orax. The cardiomediastinal silhouette is normal. There is mild thoracic spondylosis. IMPRESSION: 1. Left basilar airspace opacity, consistent with atelectasis versus pneumonia. Reviewed, dictated and finalized at location [facility]. 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
--- NOTE | 2023-04-22 09:51 | ED.GENADULT ---
HPI - General Adult General Chief complaint: Upper Respiratory Infection Stated complaint: sob,bilateral ear discomfort Time Seen by Provider: 04/22/23 10:11 Source: patient, RN notes reviewed and old records reviewed Mode of arrival: ambulatory Limitations: no limitations History of Present Illness HPI narrative: 67-year-old male presents to [facility] with complaint coughing congestion, shortness of breath, bilateral ear pain, and myalgia this started on 04/19. Patient taking [id number] medications with little relief. Patient denies chest pain, dizziness, weakness, vomiting. MD complaint: SOB, cough/congestion Onset (ago): day(s) (3-4) Related Data Home Medications Medication Instructions Recorded Confirmed amlodipine 10 mg tablet 10 mg PO DAILY 05/18/20 04/22/23 cholecalciferol (vitamin D3) 25 1,000 unit PO DAILY 05/18/20 04/22/23 mcg (1,000 unit) capsule (Vitamin D3) fluticasone furoate 100 1 inh inhalation HS 05/18/20 04/22/23 mcg-vilanterol 25 mcg/dose inhalation powder (Breo Ellipta) latanoprost 0.005 % eye drops 1 drp ophthalmic (eye) HS 05/18/20 04/22/23 tadalafil 5 mg tablet 5 mg PO DAILY PRN Erectile 05/18/20 04/22/23 Dysfunction alendronate 70 mg tablet 70 mg PO DIRECTED 04/22/23 04/22/23 rosuvastatin 5 mg tablet 5 mg DIRECTED 04/22/23 04/22/23 Allergies Allergy/AdvReac Type Severity Reaction Status Date / Time No Known Allergies Allergy Unknown Verified 05/25/22 19:25 Review of Systems Constitutional: Constitutional: Reports as per HPI and Reports body ache(s) Eyes: Eyes: Reports no additional eye complaints ENT: Reports as per HPI, Reports otalgia, Reports nasal congestion and Reports sinus pain Cardiovascular: Cardiovascular: Reports no additional cardiovascular complaints Respiratory: Respiratory: Reports as per HPI, Reports chest congestion, Reports cough and Reports dyspnea Neurologic: Reports system reviewed and no additional complaints, except as documented PMFSH Past Medical History Medical History Asthma Benign prostatic hyperplasia Bladder calculi E coli bacteremia (07/2021) Post prostate biopsy. Glaucoma Hypertension Obesity Pneumonia Prostate cancer Pulmonary embolism (05/2020) Right distal ureteral calculus Surgical History Surgical History (Updated 10/08/21 @ 23:56 by Stacie Morejon PA-C) History of prostate biopsy (07/29/21) Status post excision of lipoma Left thigh. Family History Family History Mother Pulmonary embolism Social History Social History Social History: Surrogate decision maker: Carly Mcguire, spouse. Code status: Full code. Smoking status: Never smoker Alcohol intake: current Drinks per week: 2 Substance use: never Substance use type: does not use Living arrangements: with family Additional living arrangements comments: The patient lives with his in [place]. 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 Spiritual care concerns: No Comments At the time of my signature, I reviewed and agree with the nursing past medical, surgical, social, and family history. There is no relevant family history pertinent to the patient complaint. Exam Const: General: cooperative, healthy appearing, no acute distress and well nourished Nutritional Appearance: well nourished Orientation/consciousness: patient oriented x3 Limitations: no limitations HENMT: Head: normal to inspection and normocephalic Ears: external ears normal, mastoids normal, TM abnormal wth effusion serous and unable to visualize TM on th
[2023-04-22 09:57] VITALS: BP 141/82; PULSE 89; RESP 18; TEMP 37.7; O2SAT 94
== END 2023-04-22 10:54 | disposition home or self-care (01) ==
PROVIDERS: Emergency Provider Registered Nurse
DX: J18.9 Pneumonia, unspecified organism (principal); Z20.822 Contact with and (suspected) exposure to COVID-19; Z79.899 Other long term (current) drug therapy
CPT/HCPCS: 71046; 87426; 99213; C9803; G0463

== ENCOUNTER 2025-02-12 01:39 | Emergency (ER) | payer OTHER, SELFPAY ==
--- OUTSIDE RECORDS SUMMARY | 2025-02-12 01:42 | XMS_ITS | Clinical Summary ---
Author Organization [address] Address [address] [place] [id number] Care Team Providers Care Leather Belt Loop Cutter Name Role Phone Unknown, Notinfile Primary Care Provider Unavail able Allergies No known active allergies Medications tamsulosin (FLOMAX) 0.4 mg extended release capsule Take 1 capsule (0.4 mg total) by mouth daily 6 Active apixaban (Eliquis) 2.5 mg tablet Take 1 tablet (2.5 mg total) by mouth 5 Active rosuvastatin (CRESTOR) 5 mg tablet Take 1 tablet (5 mg total) by mouth daily 2 Active fluticasone furoate-vilante roL (Breo Ellipta) 100-25 mcg/dose diskus inhaler Inhale 1 puff 2 Active amLODIPine (NORVASC) 5 mg tablet Take 1 tablet (5 mg total) by mouth 2 Active valsartan (DIOVAN) 40 mg tablet Take 1 tablet (40 mg total) by mouth daily 5 Active cyanocobalamin (Vitamin B-12) 500 mcg tablet Take 1 tablet (500 mcg total) by mouth daily Active cholecalciferol (VITAMIN D-3) 1,000 unit capsule Take 1 capsule (1,000 Units total) by mouth daily Active alendronate (FOSAMAX) 70 mg tablet Take 1 tablet (70 mg total) by mouth every 7 days 3 Active albuterol HFA (PROVENTIL HFA,VENTOLIN HFA,PROAIR HFA) 90 mcg/actuation inhaler Inhale 2 puffs every 6 (six) hours as needed 7 Active fluticasone propionate (FLONASE) 50 mcg/actuation nasal spray Administer 2 sprays into affected nostril(s) daily 5 Active folic acid (FOLVITE) 1 mg tablet Take 1 tablet (1,000 mcg total) by mouth daily 2 Active terbinafine (LamiSIL) 250 mg tablet Take 1 tablet (250 mg total) by mouth daily 5 02/02/20 25 Active Problems Problem Noted Date Diagnosed Date Fatty tumor 04/13/2012 Encounters Date Type Department Care Team Description 11/23/2024 11:30 AM CDT Office Visit [facility] [address] [id number] Missy Ge NP Lower respiratory infection (e.g., bronchitis, pneumonia, pneumonitis, pulmonitis) (Primary Dx); Acute non-recurrent pansinusitis from Last 3 Months Social History Tobacco Use Types Packs/Day Years Used Date Smoking Tobacco: Never Sex and Gender Information Value Date Recorded Sex Assigned at Not on file 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 Gender Identity Not on file Sexual Orientation Not on file Obstetrics History Last Filed Vital Signs Vital Sign Reading Time Taken Comments Blood Pressure 158/88 11/23/2024 11:45 AM CDT Pulse 98 11/23/2024 11:37 AM CDT Temperature 36.6 C (97.8 F) 11/23/2024 11:37 AM CDT Respiratory Rate 20 11/23/2024 11:3 7 AM CDT Oxygen Saturation 97% 11/23/2024 11: 37 AM CDT Inhaled Oxygen Concentration - - Weight 116.3 kg (256 lb 6.4 oz) 025 11:37 AM CDT Height 182.9 cm (6') 11/23/2024 11:37 AM CDT Body Mass Index 34.77 11/23/2024 11:37 AM CDT Plan of Treatment Health Maintenance Due Date Last Done Comments Colon Cancer Screening-Colonoscopy 1955 Depression Screening 1955 Fall Risk Assessment 1955 Hepatitis C Screening 1955 Prostate Cancer Screening-PSA 1955 Hepatitis B Screening 1971 Well Visit 65+ 2018 Influenza Vaccine (#1) 2025 5, 01/25/2023, 02/10/2022, Additional history exists Covid-19 Vaccine (2023-2 5 season) 2025 11/03/2024, 02/16/2024, 02/08/2024, Additional history exists DTaP/Tdap/Td Vaccine (3 - Td or Tdap) 06/02/2026 06/02/2016, 05/10/2006, 05/10/1995 Zoster Vaccine Completed 01/10/2020, 04/10, 04/23/2015 Pneumococcal vaccine 65+ Completed 022, 03/10/2016, 08/30/2015 Insurance [facility] [id number] Care Teams Leather Belt Loop Cutter Relationship Specialty Start Date End Date Unknown, Notinfile PCP - General 11/23/24
--- OUTSIDE RECORDS SUMMARY | 2025-02-12 01:42 | XMS_ITS | Clinical Summary ---
Author Organization [facility] Address [address] [place] [address] Care Team Providers Care Chief Chemist Name Role Phone Justus Cifuentes MD Primary Care Provider [phone] Allergies Active Allergy Reactions Criticality Noted Date Comments Gustavo Inhibitors Cough Medium 05/16/2008 Atorvastatin Myalgias 01/19/2022 Leg cramps at night. Olmesartan Nausea and Vomiting Medium 05/16/2008 Medications amLODIPine (NORVASC) 5 MG tablet Take 1 tablet (5 mg total) by mouth daily. 05/06/2022 Active vitamin D3, cholecalciferol , 25 MCG (1000 UT) capsule Take 1 capsule (1,000 Units total) by mouth daily. Active rosuvastatin (CRESTOR) 5 MG tablet Take 1 tablet (5 mg total) by mouth daily. 02/09/2022 Active tamsulosin (FLOMAX) 0.4 MG Cap Take 1 capsule (0.4 mg total) by mouth 2 (two) times a day. 04/23/2016 Active polyethylene glycol (GLYCOLAX) 17 GM/SCOOP powder Take 17 g by mouth daily as needed (constipatio n). 03/15/2022 Active folic acid (FOLVITE) 1 MG tablet Take 1 tablet (1 mg total) by mouth daily. 01/05/2022 Active fluticasone furoate-vilante rol (BREO ELLIPTA) 100-25 MCG/ACT inhaler Inhale 1 puff into the lungs nightly. 04/05/2022 Active colchicine 0.6 MG tablet Take 1 tablet (0.6 mg total) by mouth 2 (two) times daily as needed (gout attacks). 02/16/2022 Active latanoprost (XALATAN) 0.005 % ophthalmic solution Place 1 drop into both eyes nightly at bedtime. Active Cyanocobalamin (VITAMIN B 12) 500 MCG Tab Take 1 tablet by mouth daily. Active alendronate (FOSAMAX) 70 MG tablet Take 1 tablet (70 mg total) by mouth every 7 days. Takes on wednesday10/15/2022 Active HYDROcodone-gustavo taminophen (NORCO) 5-325 MG tabletIndicatio ns:Acute Pain < 7 Day Supply,S/P Hernia repair Take 1-2 tablets by mouth every 6 (six) hours as needed for Pain. 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 Hormone therapy every 6 months injections with hot flashes, cold flashes. Black cohash trial not helping much. 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 05/28/2021 Age-related nuclear cataract, bilateral 04/13/20 Vitreous degeneration, bilateral 04/13/2019 Other and unspecified disc disorder of cervical region 09/22/2018 Spinal stenosis of lumbar region 09/22/2018 Mild persistent asthma without complication ([facility]) 09/02/2016 Allergic rhinitis 08/19/2016 Hyperlipidemia 06/18/2016 Left shoulder pain 06/18/2016 Upper respiratory infection 06/18/2016 Essential hypertension with goal blood pressure less than 130/80 06/02/2016 Pure hypercholesterolemia 06/02/2016 Erectile dysfunction 04/23/2015 Lipoma of left lower extremity 04/23/2015 Overview (05/28/2022): Left thigh Claustrophobia 12/25/2009 Nocturia 02/04/2009 Arcus senilis 05/16/2008 Class 1 obesity due to exces s calories with serious comorbidity and body mass index (BMI) of 34.0 to 34.9 in adult 05/16/2008 Open-angle glaucoma 05/16/2008 Sickle cell trait 05/16/2008 Overview (05/28/2022): Fam Hx Resolved Problems Problem Noted Date Diagnosed Date Resolved Date Encounter for preventive health examination 06/18/2016 06/01/2022 Encounters Date Type Department Care Team Description 11/29/2024 8:59 AM CDT - 11/29/2024 1:04 PM CDT Emergency [facility] Emergency Room [address] [place] [address] Jonnie Montero MD Urinary Symptoms Discharge Disposition: Home or Self Care (Routine Discharge) 11/29/2024 Travel from Last 3 Months Family History Medical History Relation Comments Hypertension Mother Relation Status Comments Mother Social History Tobacco Use Types Packs/Day Years Used Date Smoking Tobacco: Never Smokeless Tobacco: Never Tobacco Cessation:Counseling Given: Not Answered Alcohol Use Standard Drinks/Week Comments Yes 0 (1 standard drink = 0.6 oz pur e alcohol) very seldom [facility] Utilities Answer Date Recorded In the past 12 months has e [employer], gas, oil, or water Queryly threatened to shut off services in your home? No 08/03/2023 Humiliation, Afraid, Rape, and Kick questionnair e Answer Date Recorded Within the last year, have y ou been afraid of your partner or ex-partner? No 08/03/2023 Within the last year, have y ou been humiliated or emotionally abused in other ways by your partner or ex-partner? No Within the last year, have y ou been kicked, hit, slapped, or otherwise physically hurt by your partner or ex-partner? No 08/03/2023 Within the last year, have y ou been raped or forced to have any kind of sexual activity by your partner or ex-partner? No 08/03/2023 Overall Financial Resource Strain (CARDIA) Answe r Date Recorded How hard is it for you to pa y for the very basics like food, housing, medical care, and heating? Not hard at all 08/03/2023 Hunger Vital Sign Answer Date Recorded Within the past 12 months, y ou worried that your food would run out before you got the money to buy more. Never true 08/03/19 24 Within the past 12 months, t he food you bought just didn't last and you didn't have money to get more. Never true 08/03/2023 PRAPARE - Transportation Answer Date Re corded In the past 12 months, has l ack of transportation kept you from medical appointments or from getting medications? No 07/09 In the past 12 months, has l ack of transportation kept you from meetings, work, or from getting things needed for daily living? No 08/03/2023 Housing Stability Vital Sign Answer Justen e Recorded In the last 12 months, was t here a time when you were not able to pay the mortgage or rent on time? No 08/03/2023 In the last 12 months, how many places have you lived? 1 08/03/2023 In the last 12 months, was t here a time when you did not have a steady place to sleep or slept in a nursing home (including now)? No 08/03/2023 Sex and Gender Information Value Date Recorded Sex Assigned at Male 08/04/2023 11:54 AM CDT Legal Sex Male 6:27 PM CDT Gender Identity Male 08/04/2023 11:54 AM CDT Sexual Orientation Not on file Last Filed Vital Signs Vital Sign Reading Time Taken Comments Blood Pressure 169/116 11/29/2024 9:03 AM CDT Pulse 101 11/29/2024 1:00 PM CDT Temperature 36.4 C (97.6 F) 11/29/2024 1:00 PM CDT Respiratory Rate 16 11/29/2024 1:00 PM CDT Oxygen Saturation 93% 11/29/2024 1:00 PM CDT Inhaled Oxygen Concentration - - Weight 114.8 kg (253 lb) 11/29/2024 9:03 AM CDT Height 182.9 cm (6') 11/29/2024 9:03 AM CDT Body Mass Index 34.31 11/29/2024 9:03 AM CDT Plan of Treatment Health Maintenance Due Date Last Done Comments Colorectal Cancer Screening Colonoscopy (10 Years) 1955 Hepatitis C 1971 RSV Immunization or 60+ Years (1 - Risk 60-74 years 1-dose series) 2013 COVID-19 Vaccine ( season) 2025 03/26/2022, 10/03/2021, 03/28/2021, Additional history exists DTaP, Tdap and Td Vaccines (3 - Td or Tdap) 06/02/2026 06/02/2016, 05/10/2006, 05/10/1995 Zoster Vaccines Completed 01/10/2020, 04/10, 04/23/2015 Pneumococcal Vaccine: 50+ Years Completed 07/17/2021, 03/10/2016, 08/30/2015 Meningococcal B Vaccine Aged Out No l onger eligible based on patient's age to complete this topic Meningococcal Vaccine Aged Out No phillip robyn eligible based on patient's age to complete this topic RSV Immunizations Under 20 Months Aged Out No longer eligible based on patient's age to complete this topic Goals Goal Patient Goal Type Associated Problems Recent Progress Patient-Stated? Author Family - family caregiver with be involved in care transitions and discharge planning Lifestyle No Bisi Bansal, NURSING HOME ADMISSIONS DIRECTORhuman capital analyst Devices Implanted Type Area Associate Web Developer Device Identifier Shelf Expiration Date Model / Serial / Lot Mesh Ventralight St 4.5in [place] - [id number] Implanted:Qty: 1 on 08/04/2023 by Efren Watkins MD at [facility] Mesh N/A: [employer]mb[employer] [id number] 01/04/2025 [id number] / / [id number] Procedures Procedure Name Priority Date/Time Associated Diagnosis Comments CT ABD+PEL W CON STAT 11/29/2024 9:56 AM CDT URINALYSIS, AUTO, COMPLETE STAT 11/29/2024 9:14 AM CDT COMPREHENSIVE METABOLIC PANEL STAT 11/29/2024 9:14 AM CDT CBC W/DIFF AUTOMATED STAT 11/29/2024 9:14 AM CDT from Last 3 Months Results * CT ABD+PEL W IV CON ONLY (11/29/2024 9:56 AM CDT) Anatomical Region Laterality Modality Abdomen Computed Tomogra phy 11/29/2024 10:1 2 AM CDT Impressions 11/29/2024 10:23 AM CDT IMPRESSION: 1. There is diffuse urinary bladder wall thickening. This may relate to bladder outlet obstruction. There is wall thickening of the distal ureters bilaterally. This may be secondary to bladder outlet obstruction or prior radiotherapy treatment. Cystoscopy and retrograde may be of use. Urological consultation recommended. The prostate gland is enlarged and protrudes into the urinary bladder. Suspected prostate radiotherapy seeds related to the patient's prostate carcinoma treatment. 2. There are consolidative type changes that are present within the left lower lobe there are groundglass opacifications and mild consolidative/atelectatic changes in the right lower lobe. Findings may relate to underlying atypical infectious process. This would include viral etiologies such as Covid. 3. Within the lateral segment the left lobe of liver there is a small hypoattenuating area that is present. This remains hyperattenuating on delayed images. This measures approximately 2 cm in transverse dimension. This is not characterizable on this examination. Further evaluation with liver MRI recommended. Ordered By: JONNIE MONTERO Interpreted By: Ankit Vasquez MD, 11/29/2024 10:12 AM Narrative 11/29/2024 10:23 AM CDT [id number] [place] [address] Procedure(s): CT ABD+PEL W CON Date of service: 11/29/2024 9:51 AM Provided clinical information: 69 years, Male, difficulty urinating, hematuria Procedure and materials: Helical images of the abdomen and pelvis are obtained from superior to the diaphragm to inferior to the pubic sepsis. Examination performed before and after intravenous contrast. 75 mL Isovue-370. A dose lowering technique was used for this procedure, which may include, but is not limited to, dose reduction technique, automated exposure control, iterative reconstruction, ALARA (As Low As Reasonably Achievable), or Image Gently techniques. Comparison studies: August 03, 2023. Findings: CT abdomen and pelvis: Lung Bases: There are consolidative type changes that are present within the left lower lobe there are groundglass opacifications and mild consolidative/atelectatic changes in the right lower lobe. Findings may relate to underlying atypical infectious process. This would include viral etiologies such as Covid. No pleural effusion is present. Adrenals:Unremarkable. Spleen:No splenomegaly. Gallbladder and Biliary system:Mild dependent hyperattenuation is present within the gallbladder. This could relate to vicarious excretion of contrast or sludge within the gallbladder. No pericholecystic inflammatory changes. Pancreas:Unremarkable. Liver:Within the lateral segment the left lobe of liver there is a small hypoattenuating area that is present. This remains hyperattenuating on delayed images. This measures approximately 2 cm in transverse dimension. This is not characterizable on this examination. Further evaluation with liver MRI recommended. Kidneys:There are multiple renal hypoattenuation's that are present. These all measure less than 10 Hounsfield units on the enhanced phase of the examination. These are consistent with simple cyst. No further follow-up is recommended per current imaging consensus recommendations. There are additional small sub-5 mm hypoattenuating lesions that are present. These are too small to characterize. No hydronephrosis of the right or left kidney. No hydroureter. There is mild wall thickening of the distal aspect of the right and left ureter with diffuse urinary bladder wall thickening. This could be secondary to bladder outlet obstruction or secondary to post radiation changes. Clinical correlation recommended. Urological consultation recommended. The prostate gland is enlarged and protrudes into the urinary bladder. Suspected prostate radiotherapy seeds related to patient's prostate carcinoma. Bowel:Moderate to large amount of fecal material is present throughout the colon. No pericolonic inflammatory changes are present. No small bowel dilatation is present. Hiatal hernia is present. Aorta and Retroperitoneum:No enlarged lymph nodes. Aorta is not aneurysmal. Pelvic Organs:Prostate gland is enlarged and protrudes into the urinary bladder. Metallic densities are present about the inferior prostate gland which may relate to radiotherapy seeds related to the patient's prostate carcinoma treatment. Diffuse urinary bladder wall thickening is present. This may relate to bladder outlet obstruction. There is wall thickening of the distal ureters bilaterally. This may be secondary to bladder obstruction or prior radiotherapy treatment. Urological consultation recommended. There is a small superior urinary bladder diverticulum that is present. This is similar as compared back to July 2023. Bone/Musculoskeletal: Degenerative changes of L4-5 and L5-S1 similar compared back to 2023. Free fluid: None Procedure Note Ankit Vasquez MD - 11/29/2024 [facility] [address] [place] [address] Procedure(s): CT ABD+PEL W CON Date of service: 11/29/2024 9:51 AM Provided clinical information: 69 years, Male, difficulty urinating,hematuria Procedure and materials: Helical images of the abdomen and pelvis areobtained from superior to the diaphragm to inferior to the pubic sepsis.Examination performed before and after intravenous contrast. 75 mLIsovue-370. A dose lowering technique was used for this procedure, which may include,but is not limited to, dose reduction technique, automated exposurecontrol, iterative reconstruction, ALARA (As Low As ReasonablyAchievable), or Image Gently techniques. Comparison studies: August 03, 2023. Findings: CT abdomen and pelvis: Lung Bases: There are consolidative type changes that are present withinthe left lower lobe there are groundglass opacifications and mildconsolidative/atelectatic changes in the right lower lobe. Findings mayrelate to underlying atypical infectious process. This would include viraletiologies such as Covid. No pleural effusion is present. Adrenals:Unremarkable. Spleen:No splenomegaly. Gallbladder and Biliary system:Mild dependent hyperattenuation is presentwithin the gallbladder. This could relate to vicarious excretion ofcontrast or sludge within the gallbladder. No pericholecystic inflammatorychanges. Pancreas:Unremarkable. Liver:Within the lateral segment the left lobe of liver there is a smallhypoattenuating area that is present. This remains hyperattenuating ondelayed images. This measures approximately 2 cm in transverse dimension.This is not characterizable on this examination. Further evaluation withliver MRI recommended. Kidneys:There are multiple renal hypoattenuation's that are present. Theseall measure less than 10 Hounsfield units on the enhanced phase of theexamination. These are consistent with simple cyst. No further follow-upis recommended per current imaging consensus recommendations. There areadditional small sub-5 mm hypoattenuating lesions that are present. Theseare too small to characterize. No hydronephrosis of the right or leftkidney. No hydroureter. There is mild wall thickening of the distal aspectof the right and left ureter with diffuse urinary bladder wall thickening.This could be secondary to bladder outlet obstruction or secondary to postradiation changes. Clinical correlation recommended. Urologicalconsultation recommended. The prostate gland is enlarged and protrudesinto the urinary bladder. Suspected prostate radiotherapy seeds related topatient's prostate carcinoma. Bowel:Moderate to large amount of fecal material is present throughout thecolon. No pericolonic inflammatory changes are present. No small boweldilatation is present. Hiatal hernia is present. Aorta and Retroperitoneum:No enlarged lymph nodes. Aorta is notaneurysmal. Pelvic Organs:Prostate gland is enlarged and protrudes into the urinarybladder. Metallic densities are present about the inferior prostate glandwhich may relate to radiotherapy seeds related to the patient's prostatecarcinoma treatment. Diffuse urinary bladder wall thickening is present. This may relate tobladder outlet obstruction. There is wall thickening of the distal uretersbilaterally. This may be secondary to bladder obstruction or priorradiotherapy treatment. Urological consultation recommended. There is asmall superior urinary bladder diverticulum that is present. This issimilar as compared back to July 2023. Bone/Musculoskeletal: Degenerative changes of L4-5 and L5-S1 similarcompared back to 2023. Free fluid: None IMPRESSION: 1. There is diffuse urinary bladder wall thickening. This may relate tobladder outlet obstruction. There is wall thickening of the distal uretersbilaterally. This may be secondary to bladder outlet obstruction or priorradiotherapy treatment. Cystoscopy and retrograde may be of use.Urological consultation recommended. The prostate gland is enlarged andprotrudes into the urinary bladder. Suspected prostate radiotherapy seedsrelated to the patient's prostate carcinoma treatment. 2. There are consolidative type changes that are present within the leftlower lobe there are groundglass opacifications and mildconsolidative/atelectatic changes in the right lower lobe. Findings mayrelate to underlying atypical infectious process. This would include viraletiologies such as Covid. 3. Within the lateral segment the left lobe of liver there is a smallhypoattenuating area that is present. This remains hyperattenuating ondelayed images. This measures approximately 2 cm in transverse dimension.This is not characterizable on this examination. Further evaluation withliver MRI recommended. Ordered By: JONNIE MONTERO Interpreted By: Ankit Vasquez MD, 11/29/2024 10:12 AM us Jonnie Montero MD CT Final Result * (ABNORMAL) URINALYSIS, AUTO, COMPLETE (11/29/2024 9:14 AM CDT) COLOR (U) DARK YELLOW 11/29/2024 9:51 AM CDT [facility] TRANSPARENCY CLEAR 11/29/2024 9:51 AM CDT [facility] SPECIFIC GRAVITY (U) 1.020 1.000 - 1.030 11/29/2024 9:51 AM CDT [facility] U PH 6.0 5.0 - 9.0 11/29/2024 9:51 AM CDT [facility] LEUKOCYTES (U) NEGATIVE NEGATIVE 11/29/2024 9:51 AM CDT [facility] NITRITES NEGATIVE NEGATIVE 11/29/2024 9:51 AM CDT [facility] PROTEIN RANDOM (U) 2+(A) NEGATIVE 11/29/2024 9:51 AM CDT [facility] GLUCOSE (U) NEGATIVE NEGATIVE 11/29/2024 9:51 AM CDT [facility] KETONES MG/DL (U) NEGATIVE NEGATIVE 11/29/2024 9:51 AM CDT [facility] BILIRUBIN (U) 1+(A) NEGATIVE 11/29/2024 9:51 AM CDT [facility] BLOOD (U) 3+(A) NEGATIVE 11/29/2024 9:51 AM CDT [facility] WBC/HPF 0-5 0 - 5 /HPF 11/29/2024 9:51 AM CDT [facility] RBC/HPF TOO NUMEROUS TO COUNT 0 - 5 /HPF 11/29/2024 9:51 AM CDT [facility] EPI/HPF NONE SEEN /HPF 11/29/2024 9:51 AM CDT [facility] URINE SPECIMEN OBTAINED BY CLEAN CATCH PROCEDURE / Unknown 11/29/2024 9:14 AM CDT us Jonnie Montero MD URINE ORDERABLES Final Result [facility] [id number] [place] [address], * (ABNORMAL) COMPREHENSIVE METABOLIC PANEL (11/29/2024 9:14 AM CDT) GLUCOSE 97 70 - 99 MG/DL 11/29/2024 9:38 AM CDT [facility] BUN 11 7 - 18 MG/DL 11/29/2024 9:38 AM CDT [facility] CREATININE S/P/B 0.91 0.7 - 1.3 MG/DL 11/29/2024 9:38 AM CDT [facility] SODIUM S/P/B 140 136 - 145 MMOL/L 11/29/2024 9:38 AM CDT [facility] POTASSIUM S/P/B 4.1 3.5 - 5.1 MMOL/L 11/29/2024 9:38 AM CDT [facility] CHLORIDE S/P/B 102 100 - 108 MMOL/L 11/29/2024 9:38 AM [facility] CO2 31.1 21 - 32 MMOL/L 11/29/2024 9:38 AM [facility] CALCIUM S/P/B 9.8 8.5 - 10.1 MG/DL 11/29/2024 9:38 AM [facility] BILIRUBIN TOTAL S/P/B 0.6 0.2 - 1.2 MG/DL 11/29/2024 9:38 AM [facility] TOTAL PROTEIN S/P/B 7.6 6.4 - 8.2 G/DL 11/29/2024 9:38 AM [facility] ALBUMIN S/P/B 3.1(L) 3.4 - 5.0 G/DL 11/29/2024 9:38 AM [facility] AST 24 15 - 37 U/L 11/29/2024 9:38 AM [facility] ALT 45 16 - 60 U/L 11/29/2024 9:38 AM [facility] ALKALINE PHOSPHATASE S/P/B 74 50 - 136 U/L 11/29/2024 9:38 AM [facility] ANION GAP 6.9 5 - 15 MMOL/L 11/29/2024 9:38 AM [facility] BUN CREATININE RATIO 12.1 6 - 26 11/29/2024 9:38 AM [facility] A/G RATIO 0.7(L) 1.0 - 2.0 RATIO 11/29/2024 9:38 AM [facility] GFR ESTIMATE >90 >90 ML/MIN/1.7 3 M2 11/29/2024 9:38 AM [facility] Comment: NOTE: eGFR is not calculated for patients <18 years of age. This is an estimated GFR calculation using the new CKD EPI creatinine equation without race and so does not require a correction factor for race. This estimated GFR should not be used for calculating drug doses. 11/29/2024 9:14 AM CDT us Jonnie Montero MD LABORATORY Final Result [facility] [id number] [place] [address], * (ABNORMAL) CBC W/DIFF AUTOMATED (11/29/2024 9:14 AM CDT) WBC 5.62 4.4 - 11.0 x10'3/uL 11/29/2024 9:22 AM CDT [facility] RBC 4.19(L) 4.50 - 5.90 x10'6/uL 11/29/2024 9:22 AM CDT [facility] HGB 12.9(L) 14.0 - 17.5 G/DL 11/29/2024 9:22 AM CDT [facility] HCT 38.9(L) 41.5 - 50.4 % 11/29/2024 9:22 AM CDT [facility] MCV 92.8 80.0 - 96.0 FL 11/29/2024 9:22 AM CDT [facility] MCH 30.8 26.5 - 31.4 PG 11/29/2024 9:22 AM CDT [facility] MCHC 33.2 31.9 - 34.8 G/DL 11/29/2024 9:22 AM CDT [facility] RDW 13.2 12.3 - 14.3 % 11/29/2024 9:22 AM CDT [facility] PLT 294 151 - 353 x10'3/uL 11/29/2024 9:22 AM CDT [facility] MPV 9.1(L) 9.7 - 11.9 FL 11/29/2024 9:22 AM CDT [facility] RBC MORPHOLOGY NORMAL 11/29/2024 9:22 AM CDT [facility] PLT MORPH. NORMAL 11/29/2024 9:22 AM CDT [facility] WBC MORPHOLOGY NORMAL 11/29/2024 9:22 AM CDT [facility] LYMPHOCYTES % 19.6 15.8 - 45.0 % 11/29/2024 9:22 AM CDT [facility] NEUTROPHILS % 64.5 42.1 - 71.9 % 11/29/2024 9:22 AM CDT [facility] MONOCYTES % 10.1 5.7 - 12.5 % 11/29/2024 9:22 AM CDT [facility] EOSINOPHILS 3.4 0.0 - 5.6 % 11/29/2024 9:22 AM CDT [facility] BASOPHILS 0.4 0.0 - 1.3 % 11/29/2024 9:22 AM CDT [facility] ABS. NEUTROPHILS 3.63 1.40 - 6.00 x10'3/uL 11/29/2024 9:22 AM CDT [facility] IMMATURE GRANS % 2.0(H) 0.0 - 0.5 % 11/29/2024 9:22 AM CDT [facility] ABS. LYMPHOCYTES 1.10 0.80 - 4.70 x10'3/uL 11/29/2024 9:22 AM CDT [facility] 11/29/2024 9:14 AM CDT us Jonnie Montero MD LABORATORY Final Result [facility] [address] [place] [address], [place] [phone] from Last 3 Months Insurance [employer] OPEN ACCESS [facility] MEDICARE PART A Advance Directives * Full Code (Latest Code Status on File) Date Activated Date Inactivated Comments 08/03/2023 4:07 PM 08/04/2023 7:37 PM * Full Code Date Activated Date Inactivated Comments 05/28/2022 3:13 PM 05/31/2022 4:30 PM Care Teams Chief Chemist Relationship Specialty [place] [address] [place] [address] [address] [place] [address] PCP - General INTERNAL MEDICINE 05/28/22
--- OUTSIDE RECORDS SUMMARY | 2025-02-12 01:42 | XMS_ITS | Clinical Summary ---
Author Organization [facility] Address [address] [facility] [place] [address] Care Team Providers Care Complaints Coordinator Name Role Phone Bright Albert MD Unavailable Silas Ng MD Unavailable Juan Goss MD Unavailable Justus Cifuentes MD Primary Care Provider [phone] Nuris Membreno MD Unavailable Juan Easley MD Unavailable [phone] John Lopez MD Unavailable Marcelino Armstrong MD Unavailable [phone] Efren Watkins MD Unavailable [phone] Source Comments [facility],non-owned Affiliates and Associated Physician Practices is amultiple site organization consisting of ambulatory clinics and hospital sitesin [place], [place], [place] and [place]. This disclosure is being madepursuant to the Care Everywhere program and may not contain all information available regarding this patient. Last updated 18.[facility] Allergies Active Allergy Reactions Criticality Noted Date Comments Gustavo Inhibitors Cough Medium 05/16/2008 Atorvastatin Myalgias 01/19/2022 Leg cramps at night. Olmesartan Medoxomil Nausea and/or Vomiting Medium 05/16/2008 Medications * Be aware that medications may not be up to date on this document. Alwaysverify current medications with the patient. latanoprost (XALATAN) 0.005 % ophthalmic solution Instill 1 Drop into both eyes at bedtime. 3 mL 0 09/18/19 15 Active albuterol HFA (PROVENTIL;ALDEN TOLIN;PROAIR) 108 (90 BASE) MCG/ACT inhaler Inhale 2 Puffs by mouth every 6 hours as needed for Shortness of Breath, Wheezing or Cough 1 Inhaler 1 08/08/19 17 Active Additional Information Patient not taking.Reported on 12/13/2024 Cholecalcifero l (VITAMIN D-3) 25 MCG (1000 UT) Take 1 (one) capsule by mouth once daily Active colchicine 0.6 MG tabletIndicati ons:Gout For acute gout attacks: take 2 tablets once and repeat an hour later. The next day start 1 tablet twice per day until all symptoms stop, then switch to 1 tablet daily. Reasons: Gout 02/17/20 22 Active Additional Information Patient not taking.Reported on 12/13/2024 polyethylene glycol 3350 (Miralax) 17 GM/SCOOP powder Take 17 (seventeen) g by mouth once daily 1 capful dissolved in 4-8 oz water or juice daily 527 g 5 03/15/20 22 Active Additional Information Patient not taking.Reported on 12/13/2024 alendronate (Fosamax) 70 MG tablet 10/16/19 23 Active vitamin B-12 (Cyanocobalami n) 500 MCG tablet Take 1 (one) tablet by mouth once daily Active sildenafil (Viagra) 100 MG tabletIndicati ons:Erectile dysfunction following radiation therapy Take 0.5 (one-half) tablet by mouth once daily as needed 30 minutes to 4 hours prior to intercourse, avoid taking within 12 hours of tamsulosin. 6 tablet 5 08/17/19 24 Active cetirizine (ZyrTEC) 10 MG tabletIndicati ons:Non-season al allergic rhinitis, unspecified trigger Take 1 (one) tablet by mouth once daily 06/12/19 25 Active fluticasone propionate (Flonase) 50 MCG/ACT nasal sprayIndicatio ns:Non-seasona l allergic rhinitis, unspecified trigger [place] 2 (two) sprays into each nostril once daily 06/12/19 25 Active Breo Ellipta 100-25 MCG/ACT inhaler USE 1 PUFF BY MOUTH EVERY DAY 60 Each 11 10/04/19 25 Active Additional Information Patient not taking.Reported on 12/13/2024 Eliquis 2.5 MG tabletIndicati ons:Prostate cancer (HCC),History of pulmonary embolism TAKE 1 TAB BY MOUTH 2X A DAY FOR HISTORY OF PULMONARY EMBOLISM/HALF-WAY PROPHYLAXIS FOR DVT/PE RISK 180 tablet 1 10/17/19 25 Active tamsulosin (Flomax) 0.4 MG capsuleIndicat ions:Benign Prostatic Hypertrophy Take 1 (one) capsule by mouth once daily after dinner Reasons: Benign Enlargement of Prostate 90 capsule 1 11/04/19 25 Active terbinafine (LamISIL) 250 MG tabletIndicati ons:Onychomyco sis of Toenails Take 1 (one) tablet by mouth once daily for 90 days Reasons: Fungal Toenail Disease 90 tablet 11/04/19 25 Active valsartan (Diovan) 40 MG tabletIndicati ons:Hypertensi on TAKE 1 (ONE) TABLET BY MOUTH ONCE DAILY REASONS: HIGH BLOOD PRESSURE 90 tablet 1 12/09/19 25 Active LORazepam (Ativan) 0.5 MG tabletIndicati ons:claustopho neida 1 tablet by mouth every 30 minutes starting 30-60 minutes prior to the MRI scan. Need a ride home after MRI. Reasons: claustophobia 3 tablet 12/14/19 25 Active amLODIPine (Norvasc) 5 MG tablet TAKE 1 TABLET BY MOUTH EVERY DAY FOR BLOOD PRESSURE. *STOP 10 MG* 90 tablet 1 01/17/20 25 Active folic acid (Folvite) 1 MG tablet TAKE 1 TABLET BY MOUTH EVERY DAY 90 tablet 1 01/19/20 25 Active rosuvastatin (Crestor) 5 MG tabletIndicati ons:Hyperlipid emia TAKE 1 (ONE) TABLET BY MOUTH ONCE DAILY REASONS: HIGH AMOUNT OF FATS IN THE BLOOD 90 tablet 1 01/31/20 25 Active folic acid (Folvite) 1 MG tablet TAKE 1 TABLET BY MOUTH EVERY DAY 90 tablet 3 01/11/20 24 2024 Discontinued amLODIPine (Norvasc) 5 MG tablet TAKE 1 TABLET BY MOUTH EVERY DAY FOR BLOOD PRESSURE. *STOP 10 MG* 90 tablet 1 07/22/19 25 2024 Discontinued rosuvastatin (Crestor) 5 MG tabletIndicati ons:Hyperlipid emia TAKE 1 (ONE) TABLET BY MOUTH ONCE DAILY REASONS: HIGH AMOUNT OF FATS IN THE BLOOD 90 tablet 1 08/10/19 25 2024 Discontinued Active Problems Problem Noted Date Diagnosed Date Liver lesion 12/18/2024 Abnormal CXR (chest x-ray) 12/18/2024 Hammer toes of both feet 11/03/2024 Polyneuropathy associated with underlying diseas e 11/03/2024 Pre-diabetes 07/03/2024 History of pneumonia 04/24/2023 Overview (04/24/2023): 04/22/2023 [facility]. Questionable versus residual changes from past pulmonary embolism. 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 Hormone therapy every 6 months injections with hot flashes, cold flashes. Black cohash trial not helping much. History of pulmonary embolism 07/17/2021 Homozygous MTHFR mutation [id number] 05/28/2021 Vitreous degeneration, bilateral 04/13/2019 Age-related nuclear cataract, bilateral 04/13/20 19 Spinal stenosis of lumbar region 09/22/2018 Mild persistent asthma without complication 08/09 Allergic rhinitis 08/19/2016 Essential hypertension with goal blood pressure less than 130/80 06/02/2016 High serum low-density lipoprotein (LDL) 017 Lipoma of left lower extremity 04/23/2015 Overview (04/23/2015): Left thigh Erectile dysfunction following radiation therapy 04/23/2015 Fatty tumor 04/13/2012 Claustrophobia 12/25/2009 Nocturia 02/04/2009 Class 1 obesity without seri ous comorbidity with body mass index (BMI) of 34.0 to 34.9 in adult 05/16/2008 Glaucoma, open-angle 05/16/2008 Arcus senilis 05/16/2008 Sickle cell trait 05/16/2008 Overview (05/16/2008): Fam Hx Resolved Problems Problem Noted Date Diagnosed Date Resolved Date Onychomycosis 11/03/2024 12/18/2024 Incarcerated umbilical hernia 08/03/2023 08/03/2023 08/04/2023 Elevated serum creatinine 07/09/2022 FATEMEH (acute kidney injury) 05/28/2022 Other pulmonary embolism wit hout acute cor pulmonale 05/20/2020 07/17/2021 Overview (05/20/2020): 05/17/2020 [facility]. 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 Leg swelling 12/25/2009 01/10/2020 Overview (2010): Mass, proximal lateral left thigh, per MRI, lipoma, Jan 2010 Vitamin D deficiency 02/04/2009 020 Overview (02/07/2015): Mild Dyspepsia 05/16/2008 07/17/2021 Encounters Date Type Department Care Team Description 01/28/2025 Refill [facility] - Internal Medicine [address] [place] [address] [address] [place] [address] Justus Cifuentes MD Refill Request 01/17/2025 Refill [facility] [address] [place] [address] [address] [place] [address] Justus Cifuentes MD Refill Request 01/16/2025 Refill [facility] - Internal Medicine [address] [place] [address] [address] [place] [address] Justus Cifuentes MD Refill Request 12/13/2024 2:30 PM CDT Office Visit [facility] Internal Medicine [address] [place] [phone] Justus Cifuentes MD Liver lesion (Primary Dx); Claustrophobia; Abnormal CXR (chest x-ray); Essential hypertension with goal blood pressure less than 130/80; High serum low-density lipoprotein (LDL); History of pneumonia; Idiopathic chronic gout of left foot without tophus 12/08/2024 Refill [facility] Medicine [address] [place] [address] Justus Cifuentes MD Refill Request 12/04/2024 Telephone [facility] [address] [place] [phone] Justus Cifuentes MD Scheduling from Last 3 Months Immunizations Immunization Administration Dates Next Due INFLUENZA VACCINE, TRIV. (AF LURIA, FLUZONE TRIVALENT; 6MO+) (IIV3) 01/28/2010,02/04/2009 COVID MODERNA 12+ yr 50mcg/0.5mL 11/03/2024 COVID MODERNA BIVALENT 12Y+ 50MCG/0.5ML 03/26/2022 COVID PFIZER 12+YR 30MCG/0.3mL 08/17/2023 Covid Moderna primary monova lent 12+ yr 0.5mL 03/28/2021,06/26/2020 FLU VACCINE TRI IIV3 SPLIT P F IM (FLUVIRIN) 01/26/2012,01/15/2011 INFLUENZA VACCINE 02/10/2022,,01/29/2020,2018,03/12/2018,02/13/2015,01/31/2014,1 ,02/16/2013 INFLUENZA VACCINE, ADJUVANTE D, QUADR. (FLUAD QUADRIVALENT; 65Y+) (AIIV4) 01/25/2023 INFLUENZA VACCINE, ADJUVANTE D, TRIV. (FLUAD TRIVALENT; 65Y+) (AIIV3) 06/12/2024 INFLUENZA VACCINE, QUADR. (F LUZONE; FLULAVAL; FLUARIX; AFLURIA QUADRIVALENT; 6MO+), 0.5 ML (IIV4) 02/10/2017,01/30/2016 MODERNA SARS-COV-2 COVID-19 VACCINE 0.25ML 02/08/2024,10/03/2021 PNEUMOCOCCAL PPSV23 07/17/2021,03/10/2016 Pneumococcal Pcv13 Conj 08/30/2015 RSV ABRYSVO PREG OR 60y+ 0.5mL 02/01/2024 Spikevax(nucleoside Modified) 02/07/2023 TD VACCINE 05/10/1995 TDAP (7yrs+) 06/02/2016,05/10/2006 ZOSTER VACCINE, LIVE 04/23/2015 Zoster Hzv Vacc Recombinant Inj Im 01/10/2020, Family History Medical History Relation Name Comments CVA Father Diabetes Father Hypertension Father CAD (Coronary Artery Disease) Mother Hypertension Mother Cancer Sister breast 69 in 20 20 Other half-brother younger Relation Name Status Comments Father (Age 78) CVA Mother (Age 44) multiple p um emboli Sister Alive half-brother Alive Social History Tobacco Use Types Packs/Day Years Used Date Smoking Tobacco: Never Smokeless Tobacco: Never Tobacco Cessation:Counseling Given: Yes Alcohol Use Standard Drinks/Week Comments Yes 3 (1 standard drink = 0.6 oz pur e alcohol) occasional PHQ-2 Answer Date Recorded Patient Health Questionnaire-2 Score 0 12/06/2024 Sex and Gender Information Value Date Recorded Sex Assigned at Male 01/15/2021 3:43 PM CDT Legal Sex Male 6:44 AM LAY OUT DRAFTER Gender Identity Male 05/05/2017 9:49 AM LAY OUT DRAFTER Sexual Orientation Not on file 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 file Not on file Not on file 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 Not on file Not on file Not on file Not on file Not on file Not on file Not on file Not on file Not on file Not on file Not on file Advanced Course Faculty Not on file Not on file Not on file Last Filed Vital Signs Vital Sign Reading Time Taken Comments Blood Pressure 140/78 12/13/2024 2:27 PM CDT Pulse 99 12/13/2024 2:27 PM CDT Temperature 36.6 C (97.8 F) 12/13/2024 2:27 PM CDT Respiratory Rate 18 12/13/2024 2:27 PM CDT Oxygen Saturation 96% 12/13/2024 2:27 PM CDT Inhaled Oxygen Concentration - - Weight 116.6 kg (257 lb) 12/13/2024 2:27 PM CDT Height 182.9 cm (6') 12/13/2024 2:27 PM CDT Body Mass Index 34.86 12/13/2024 2:27 PM CDT Plan of Treatment Upcoming Encounters Date Type Department Care Team (Late st Contact Info) Description 03/27/2025 11:30 AM LAY OUT DRAFTER Office Visit [facility] - Internal Medicine [address] [place] [address] [address] [place] [address] Justus Cifuentes MD [address] [place] [address] [address] [place] [address] 05/24/2025 3:30 PM LAY OUT DRAFTER Video Visit [facility] - Pulmonology [address] [place] [address], [facility] [address] [place] [address] Silas Ng MD [address] [place] [address] [address] [place] [address] Health Maintenance Due Date Last Done Comments COLOGUARD (AGES 45-75) - COLON CA SCREENING 1955 CT COLONOGRAPHY - COLON CA SCREENING 1955 FIT - COLON CA SCREENING 1955 FLEX SIG - COLON CA SCREENING 1955 INFLUENZA VACCINE (#1) 2025 , 01/25/2023, 02/10/2022, Additional history exists COVID-19 VACCINE ( season) 2025 11/03/2024, 02/08/2024, 08/17/2023, Additional history exists COLON MONITORING 06/11/2025 06/11/2015, 06/11/2015 COLONOSCOPY - COLON CA SCREENING 06/11/2025 06/11/2015, 06/11/2015 Colorectal Cancer Screening 06/11/2025 DTAP/TDAP/TD VACCINES (4 - Td or Tdap) 06/02/2026 06/02/2016, 05/10/2006, 05/10/1995 SCREENING FOR DIABETES 11/04/2027 , 06/27/2024, 06/27/2024, Additional history exists HEPATITIS C SCREENING Completed 09/22/2018 ZOSTER VACCINE Completed 01/10/2020, 04/10, 04/23/2015 PNEUMOCOCCAL VACCINE 50+ Completed 022, 03/10/2016, 08/30/2015 Respiratory Syncytial Virus (RSV) Vaccine Pt: or over 60 yrs Completed 02/01/2024 DEPRESSION SCREENING Completed 06/12/2024, 06/14/2023, 07/09/2022, Additional history exists HEPATITIS B VACCINE Aged Out No longe r eligible based on patient's age to complete this topic HIB VACCINE Aged Out No longer eligi ble based on patient's age to complete this topic HPV VACCINE Aged Out No longer eligi ble based on patient's age to complete this topic MENINGOCOCCAL (Group B) VACCINE SHARED DECISION-MAKING Aged Out No longer eligible based on patient's age to complete this topic MENINGOCOCCAL GROUPS A/C/Y/W VACCINE Aged Out No longer eligible based on patient's age to complete this topic Goals Goal Patient Goal Type Associated Problems Recent Progress Patient-Stated? Author Blood Pressure < 140/90 Blood Pressure 140/78(2024 2:27 PM CDT) Doreen Louis Lifestyle: Have labs drawn Lifestyle No Jody Ojeda MA Procedures Procedure Name Priority Date/Time Associated Diagnosis Comments HEMOGLOBIN A1C - POINT OF CARE (AMB) Routine 11/03/2024 10:03 AM CDT Pre-diabetes Polyneuropathy associated with underlying disease (HCC) HEPATITIS C ANTIBODY Routine 09/22/2018 11:56 AM CDT Encounter for hepatitis C screening test for low risk patient ENDOSCOPY, COLON, SCREENING Routine 06/11/2015 12:21 PM LAY OUT DRAFTER from Last 3 Months or Most Recently Relevant to Health Maintenance Results * HEMOGLOBIN A1C - POINT OF CARE (HgbA1C) (11/03/2024 10:03 AM CDT) [facility] Hemoglobin A1c POCT 5.6 % [facility] Expiration Date 07/05/26 [facility] Lot # [id number] [facility] QC Verified Yes Yes [facility] Blood BLOOD SPECIMEN / Unknown 11/03/2024 10:03 AM CDT us Justus Cifuentes MD LAB - POINT OF CARE ORDERABLE S Edited Result - [facility] [address] [place] [address], [facility] [phone] * HEPATITIS C ANTIBODY (09/22/2018 11:56 AM CDT) [facility] Hepatitis C Antibody Non Reactive Non Reactive [facility] INSURANCE BILL Comment: Non Reactive - Antibodies to Hepatitis C virus (HCV) were no t detected, result does not exclude early acute HCV infection. Blood BLOOD SPECIMEN / Unknown 09/22/2018 11:56 AM CDT 09/22/2018 Narrative Resulting Agency Comment Lab Testing performed at: [facility] [address] [facility] [phone] us Adrián Hogue MD LAB - CHEMISTRY ORDERABLES F inal Result [facility] INSURANCE BILL [address] [place] [address] * ENDOSCOPY, COLON, SCREENING (06/11/2015 12:21 PM LAY OUT DRAFTER) [facility] Report Endoscopy POC _ Patient Name: Bibi Ayers Procedure Date: 06/11/2015 12:21 PM Date of : 1955 Admit Type: Outpatient Age: 60 Gender: Male Attending MD: Bright Albert MD _ Procedure: Colonoscopy Indications: Screening for colorectal malignant neoplasm Providers: Bright Albert MD (Doctor), Sravani Stewart RN, Rina Armstrong RN, Charmaine Toro Referring MD: Adrián Hogue MD (Referring MD) Medicines: Monitored Anesthesia Care Complications: No immediate complications. _ Procedure: Pre-Anesthesia Assessment: - ASA Grade Assessment: II - A patient with mild systemic disease. - Airway Examination: Mallampati Class I (tonsillar pillars visualized). After I obtained informed consent, the scope was passed under direct vision. Throughout the procedure, the patient's blood pressure, pulse, and oxygen saturations were monitored continuously. The Colonoscope was introduced through the anus and advanced to the cecum, identified by appendiceal orifice and ileocecal valve. The colonoscopy was performed without difficulty. The patient tolerated the procedure well. The quality of the bowel preparation was good. Impression: - The entire examined colon is normal. - No specimens collected. Findings: The colon (entire examined portion) appeared normal. _ Recommendation: - Repeat colonoscopy in 10 years for screening purposes. - Repeat colonoscopy sooner in the event of new symptoms ie: bleeding, weight loss or change in bowel habits etc, or if a family member (mother, father, sister, brother) is diagnosed with polyps or colon cancer. Procedure Code(s): --- Professional --- 03172, Colonoscopy, flexible; diagnostic, including collection of specimen(s) by brushing or washing, when performed (separate procedure) --- Technical --- 31687, Colonoscopy, flexible; diagnostic, including collection of specimen(s) by brushing or washing, when performed (separate procedure) Diagnosis Code(s): --- Professional --- Z12.11, Encounter for screening for malignant neoplasm of colon --- Technical --- Z12.11, Encounter for screening for malignant neoplasm of colon CPT copyright 2014 [employer]. All rights reserved. The codes documented in this report are preliminary and upon plug and mold finisher review may be revised to meet current compliance requirements. Bright Albert MD 06/11/2015 12:48:59 PM This report has been signed electronically. Number of Addenda: 0 Note Initiated On: 06/11/2015 12:21 PM [facility] ENDOSCOPY 06/11/2015 12:2 1 PM LAY OUT DRAFTER us Bright Albert MD GI PROCEDURE ORDERABLES Edited R esult - Final [facility] ENDOSCOPY from Last 3 Months or Most Recently Relevant to Health Maintenance Insurance [employer] Care Teams Complaints Coordinator Relationship Specialty Start Date End Date Justus Cifuentes MD [address] [facility] [address] [place] [address] PCP - General Internal Medicine 01/10/20 Bright Albert MD [address] [facility] [address] [place], [place] [id number] Gastroenterology 04/23/15 Silas Ng MD [address] [facility] [address] [place] [address] Pulmonary Disease 08/12/16 Juan Goss MD [address] [facility] [address] [place] [address] Ophthalmology 10/22/17 [place] [address] [address] [facility] [address] [place] [address] Orthopedic Surgery 01/21/21 [place] [address] [address] [facility] [address] [place] [address] Urology 07/14/21 John Lopez MD [address] [facility] [address] [place] [address] Hematology and Oncology 07/17/21 Marcelino Armstrong MD [address] [place] [address] Radiation Oncology 09/24/21 Efren Watkins MD [address] [facility] [address] [place] [address] Surgery 08/17/23
--- OUTSIDE RECORDS SUMMARY | 2025-02-12 01:42 | XMS_ITS ---
Author Organization [facility] Address [address] [place] [address] Care Team Providers Care Talent Program Manager Name Role Phone Bright Albert MD Unavailable Silas Ng MD Unavailable Juan Goss MD Unavailable Justus Cifuentes MD Primary Care Provider Nuris Membreno MD Unavailable [phone] Juan Easley MD Unavailable John Lopez MD Unavailable Marcelino Armstrong MD Unavailable [phone] Efren Watkins MD Unavailable [phone] Active Problems Problem Noted Date Diagnosed Date [...] of pulmonary embolism 07/17/2021 Homozygous MTHFR mutation [id number] 05/28/2021 Vitreous degeneration, bilateral 04/13/2019 Age-related nuclear cataract, bilateral 04/13/20 Spinal stenosis of lumbar region 09/22/2018 Mild [...] cell trait 05/16/2008 Overview (05/16/2008): Fam Hx Current Treatment and Therapy Plans No current plan information found. Past Treatment and Therapy Plans No past plan information found. Lifetime Dose Tracking * Chemical Lifetime Dose Automatic Entry Manual Entr y Dose Length Product 3,036.5 mGy-cm 3,036.5 mGy-cm 0 mG y-cm Resolved Problems Problem Noted Date Diagnosed Date Resolved Date Onychomycosis 11/03/2024 12/18/2024 Incarcerated umbilical hernia 08/03/2023 08/03/2023 08/04/2023 Elevated serum creatinine 07/09/2022 FATEMEH (acute kidney injury) 05/28/2022 Other pulmonary embolism wit hout acute cor pulmonale 05/20/2020 07/17/2021 Overview (05/20/2020): 05/17/2020 [facility]. Other and unspecified disc d isorder [...]
[2025-02-12 01:44] VITALS: BP 208/108; PULSE 96; RESP 18; TEMP 36.4; O2SAT 100
[2025-02-12 03:30] VITALS: BP 195/114; PULSE 61; RESP 18; O2SAT 99
--- NOTE | 2025-02-12 04:15 | ED.WOUNDLAC ---
HPI - Wound/Laceration General Chief Complaint: Wound/Laceration Stated Complaint: Pinprick to nose, bleeding, on thinners Time Seen by Provider: 02/12/25 03:32 Source: patient Mode of arrival: ambulatory Limitations: no limitations History of Present Illness HPI narrative: Patient presents with a small bleeding wound on his left nostril, externally. On 2.5mg Eliquis BID for history of PE diagnosed 2.5 years ago (and maintained on therapy due to family history of similar). Prescribed by PCP Dr Trent. Hsa had a small wound there for a bit, not healing. Bumped it in his sleep. Bled for 20 minutes. No pain. History of HTN. Feeling stressed and hasn't yet taken AM dose of meds but otherwise denies any shortness of breath, chest pain, etc. Taking medications as prescribed. Not in need of refills. Related Data Home Medications ?Medication ?Instructions ?Recorded ?Confirmed ?Last Taken ?Type amlodipine 10 mg tablet 10 mg PO DAILY 05/18/20 04/22/23 10/08/21 07:00 History cholecalciferol (vitamin D3) 25 1,000 unit PO DAILY 05/18/20 04/22/23 10/12/21 History mcg (1,000 unit) capsule (Vitamin D3) fluticasone furoate 100 1 inh inhalation HS 05/18/20 04/22/23 10/14/21 History mcg-vilanterol 25 mcg/dose inhalation powder (Breo Ellipta) latanoprost 0.005 % eye drops 1 drp ophthalmic (eye) HS 05/18/20 04/22/23 10/14/21 History tadalafil 5 mg tablet 5 mg PO DAILY PRN Erectile 05/18/20 04/22/23 Unknown History Dysfunction alendronate 70 mg tablet 70 mg PO DIRECTED 04/22/23 04/22/23 Unknown History rosuvastatin 5 mg tablet 5 mg DIRECTED 04/22/23 04/22/23 Unknown History Allergies Allergy/AdvReac Type Severity Reaction Status Date / Time No Known Allergies Allergy Unknown Verified 02/12/25 01:46 [facility] Past Medical History Medical History Obesity Bladder calculi Right distal ureteral calculus E coli bacteremia (07/2021) Post prostate biopsy. Pulmonary embolism (05/2020) Prostate cancer Hypertension Benign prostatic hyperplasia Pneumonia Asthma Glaucoma Surgical History Surgical History Status post excision of lipoma Left thigh. History of prostate biopsy (07/29/21) Family History Family History Mother Pulmonary embolism Social History Social History Social History: Surrogate decision maker: Carly Mcguire, spouse. Code status: Full code. Smoking status: Never smoker Alcohol intake: current Drinks per week: 2 Substance use: never Substance use type: does not use Living arrangements: with family Additional living arrangements comments: The patient lives with his in [place]. 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 Spiritual care concerns: No Exam Narrative: GENERAL: Well-appearing, well-nourished, and in no acute distress. HEAD: Normocephalic, atraumatic. EYES: Non injected, non icteric ENT: Nares clear, no rhinorrhea or epistaxis. Gross auditory acuity intact. Small 2mm lesion oozing blood on external naris. NECK: Supple. No meningismus. CHEST: Speaking in full sentences. No respiratory distress. HEART: Regular rate and rhythm. . ABDOMEN: Soft, nondistended. No rigidity or guarding. Not peritoneal EXTREMITIES: Normal range of motion. No lower extremity edema. SKIN: Warm, dry. See above NEURO: No focal deficits. Alert and oriented. Answering questions. Following commands. Normal speech without aphasia or dysarthria. PSYCH: Normal mood and affect. Course Vital Signs Vital signs: Vital Signs Temperature 97.6 F 02/12/25 01:44 Pulse Rate 96 02/12/25 01:44 Respiratory Rate 18 02/12/25 01:44 Blood Pressure 208/108 H 02/12/25 01:44 Pulse Oximetry 100 02/12/25 01:44 Oxygen Delivery Room Air 02/12/25 01:44 Temperature 97.6 F 02/12/25 01:44 Pulse Rate 61 02/12/25 03:30 Respiratory Rate 18 02/12/25 03:30 Blood Pressure 195/114 H 02/12/25 03:30 Pulse Oximetry 99 02/12/25 03:30 Oxygen Delivery Room Air 02/12/25 01:44 MDM - Wound/Laceration MDM Narrative Medical decision making narrative: Exceedingly pleasant 69yo presents with a small bleeding wound on left nostril externally. On Elliquis for history of PE. Bumped the wound in the middle of the night and it bled for 20 minutes. In the emergency department he is afebrile with signs notable for hypertension. Systolic blood pressure only mildly improved on repeat with diastolic pressure worsening. Deferred obtain labs as bleeding was minimal. Bandage had been applied by RN and it did bleed on the pad but no strike through. On my examination, upon removing bandage. remains slightly oozing. Small silver nitrate used to cauterize. No more bleeding after a period of waiting. Bandage reapplied. Advised follow up with ENT if lesion persists. Discharge Plan Discharge Clinical Impression: Lesion of nostril, Chronic anticoagulation Hypertension Qualifiers: Hypertension type: unspecified Qualified Code(s): I10 - Essential (primary) hypertension Patient Disposition: Home Condition: Stable Instructions: Antibiotic Form, Hypertension (ED), Blood Thinners (ED) Additional Instructions: Your bleeding remained better controlled while in the emergency department. I am not familiar enough with the product you were showing to make recommendations. Talk with your primary care physician. If this wound remains not healing well, I do recommend follow up with an ENT/ear nose and throat /environmental field professional as they may choose to biopsy it or have other recommendations. Return to the emergency department any new or worsening symptoms. Continue taking your medications as prescribed including your blood pressure medication. Patient Language: Liberian Prescriptions: No Action rosuvastatin 5 mg tablet 5 mg DIRECTED alendronate 70 mg tablet 70 mg PO DIRECTED doxycycline hyclate 100 mg capsule 100 mg PO BID 10 Days Qty: 20 0RF albuterol sulfate 90 mcg/actuation HFA aerosol inhaler 2 puff inhalation Q4-6H PRN (Reason: shortness of breath or wheezing) Qty: 8.5 0RF tamsulosin [Flomax] 0.4 mg capsule 0.4 mg PO HS Qty: 30 0RF latanoprost 0.005 % drops 1 drp ophthalmic (eye) HS Rx Instructions: both eyes amlodipine 10 mg tablet 10 mg PO DAILY cholecalciferol (vitamin D3) [Vitamin D3] 25 mcg (1,000 unit) Capsule 1,000 unit PO DAILY tadalafil 5 mg tablet 5 mg PO DAILY PRN (Reason: Erectile Dysfunction) Patient Comments: takes daily for bph fluticasone furoate-vilanterol [Breo Ellipta] 100-25 mcg/dose blister with device 1 inh INHALATION HS Follow-up/Referrals: [facility] Cifuentes [Other] Silver Lopez MD [Physician, Ear, Nose, Throat] Stand Alone Forms: Work/School Release IP Time of Disposition: 04:50
[2025-02-12] MEDS: SILVER NITRATE (*SP) STICK 1 EACH TOPICAL (04:37)
== END 2025-02-12 05:20 | disposition home or self-care (01) ==
PROVIDERS: Emergency Provider Student in an Organized Health Care Education/Training Program
DX: L98.8 Other specified disorders of the skin and subcutaneous tissue (principal); I10 Essential (primary) hypertension; J45.909 Unspecified asthma, uncomplicated; H40.9 Unspecified glaucoma; Z87.442 Personal history of urinary calculi; Z85.46 Personal history of malignant neoplasm of prostate; Z87.01 Personal history of pneumonia (recurrent); Z86.711 Personal history of pulmonary embolism; Z79.01 Long term (current) use of anticoagulants
CPT/HCPCS: 99282